=== PATIENT | female | born 1965 | race Caucasian/White ===

== ENCOUNTER 2023-09-18 23:03 | Emergency (ER) | payer OTHER, SELFPAY ==
[2023-09-18 23:18] VITALS: BP 169/99; PULSE 78; TEMP 36.4; O2SAT 100; BMI 23.2
--- NOTE | 2023-09-18 23:20 | ED_ITS ---
HPI HPI - Back Pain/Injury General Chief Complaint: Back Pain/Injury Stated Complaint: BACK PAIN Time Seen by Provider: 09/18/23 23:06 Source: patient Mode of arrival: walk-in Limitations: no limitations History of Present Illness HPI Narrative: 58-year-old female presents to the emergency department for pain in the right lower back and hip which goes into her leg. She has a history of sciatica and it started this time yesterday. No injury. No weakness or numbness or urinary symptoms. The pain is moderate and worse when she moves. She took Celebrex at home but it did not seem to help. Related Data Previous Rx's ?Medication ?Instructions ?Recorded hydrocodone 5 mg-acetaminophen 325 1 tab PO Q6H PRN pain 5 days #20 09/18/23 mg tablet tabs prednisone 10 mg tablet See Rx Instructions .Route 09/18/23 .COMPLEX #30 tabs Allergies Allergy/AdvReac Type Severity Reaction Status Date / Time Penicillins Allergy Rash Verified 09/18/23 23:14 clindamycin AdvReac Nausea Verified 09/18/23 23:14 ibuprofen AdvReac Joint Pain Verified 09/18/23 23:14 Opioid HPI Opioid Management Most Recent Opioid Data: No Data to Display Review of Systems ROS Narrative A ten point review of systems is negative except as noted above. Exam Narrative Exam Narrative: Nurses note and vital signs reviewed and patient is not hypoxic. General: The patient appears uncomfortable, sitting on the examination cart Skin: Warm, dry, no pallor noted. There is no rash noted. Head: Normocephalic, atraumatic Eye: Normal conjunctiva, no drainage Ears, Nose, Mouth, and Throat: oral mucosa is moist. Nares patent. Cardiovascular: Regular Rate and Rhythm Respiratory: Patient is in no distress, no accessory muscle use, lungs are clear to auscultation, no wheezing, rales or rhonchi Back: No bruise rash or focal area of tenderness GI: Soft and nontender Musculoskeletal: Right leg is not swollen. No calf tenderness or swelling. Neurological: Awake and alert. Motor strength intact in her lower extremities Psychiatric: Cooperative Constitutional Vital Signs, click to edit/add: Last Vital Signs Temp 97.6 F 09/18/23 23:18 Pulse 78 09/18/23 23:18 Resp 18 09/18/23 23:18 BP 169/99 H 09/18/23 23:18 Pulse Ox 100 09/18/23 23:18 O2 Del Method Room Air 09/18/23 23:18 Course Vital Signs Vital signs: Vital Signs Temperature 97.6 F 09/18/23 23:18 Pulse Rate 78 09/18/23 23:18 Respiratory Rate 18 09/18/23 23:18 Blood Pressure 169/99 H 09/18/23 23:18 Pulse Oximetry 100 09/18/23 23:18 Oxygen Delivery Method Room Air 09/18/23 23:18 Temperature 97.6 F 09/18/23 23:18 Pulse Rate 78 09/18/23 23:18 Respiratory Rate 18 09/18/23 23:18 Blood Pressure 169/99 H 09/18/23 23:18 Pulse Oximetry 100 09/18/23 23:18 Oxygen Delivery Method Room Air 09/18/23 23:18 MDM - Back Pain/Injury MDM Narrative Medical decision making narrative: My clinical impression is that she has sciatica. She was given IM Solu-Medrol and morphine here and prescribed [place] and prednisone. Treatment diagnosis and follow-up were discussed with the patient. Differential Diagnosis Differential diagnosis: Likely lumbar radiculopathy, sciatica and strain of lumbar region Discharge Plan Discharge Stand Alone Forms: Portal Instructions Chief Complaint: Back Pain/Injury Clinical Impression: Sciatica Patient Disposition: Home, Self-Care Time of Disposition Decision: 23:18 Condition: Good Mode of Transportation: Private Vehicle Prescriptions / Home Meds: New hydrocodone-acetaminophen 5-325 mg tablet 1 tab PO Q6H PRN (Reason: pain) 5 Days Qty: 20 0RF prednisone 10 mg tablet See Rx Instructions .ROUTE .COMPLEX Qty: 30 0RF Rx Instructions: 4 by mouth daily for three days then 3 by mouth daily for three days then 2 by mouth daily for three days then 1 by mouth daily for three days Print Language: Sinhala Instructions: Sciatica (ED) Referrals: MARICHUY CARR [Primary Care Provider] - 1 week
[2023-09-18] MEDS: METHYLPREDNISOLONE SOD SUCC PF 125 MG/2 ML VIAL IM (23:35)
[2023-09-18] MEDS: MORPHINE SULFATE 4 MG/ML VIAL 10 MG IM (23:35)
== END 2023-09-19 00:24 | disposition home or self-care (01) ==
PROVIDERS: Emergency Provider Emergency Medicine; PCP Student in an Organized Health Care Education/Training Program
DX: M54.41 Lumbago with sciatica, right side (principal)
CPT/HCPCS: 96372; 99284; J2270; J2919

== ENCOUNTER 2023-11-20 22:33 | Emergency (ER) | payer OTHER, SELFPAY ==
[2023-11-20 22:39] VITALS: BP 144/100; PULSE 82; TEMP 36.5; O2SAT 97; BMI 23.0
--- OUTSIDE RECORDS SUMMARY | 2023-11-20 22:39 | XMS_ITS | CCD ---
Author Organization [facility] Care Team Providers Care [employer] Supervisor Name Role Phone PHYSICIAN, DEFAULT Admitting Unavailable PHYSICIAN, DEFAULT Attending Unavailable SELF, REFERRED Primary Care Unavailable ELTAHAWY, EHAB A Admitting Unavailable ELTAHAWY, GILBERTOAB A Attending Unavailable JV BOYD Primary Care Unavailable JV BOYD Referring Unavailable [place] Procedure Practitioner Unavailab le BIA, MARITA Stewart Surgeon Unavailable PAY ., DR ANGELES Admitting Unavailable PAY ., DR ANGELES Attending Unavailable RIN CARDENAS Consulting Unavailable CARR, MARICHUY Primary Care Unavailable CARR, MARICHUY Referring Unavailable CARR, MARICHUY Primary Care Unavailable ELTAHAWY, DR KENYON Admitting Unavailable ELTAHAWY, DR KENYON Attending Unavailable CARR, MARICHUY Primary Care Unavailable ELTAHAWY, DR KENYON Attending Unavailable ELTAHAWY, DR KENYON Admitting Unavailable CARR, MARICHUY Primary Care Unavailable CASS, DR IRIS Huynh Admitting Unavaildeb ODELL, DR IRIS Huynh Attending Unavailabl e CASS, DR IRIS Huynh Consulting Unavailabl e CARR, MARICHUY Primary Care Unavailable JOVANY, OSMANY Admitting Unavailable JOVANY, OSMANY Attending Unavailable JOVANY, OSMANY Consulting Unavailable JOVANY, OSMANY Admitting Unavailable JOVANY, OSMANY Attending Unavailable JOVANY, OSMANY Consulting Unavailable CARR, MARICHUY Primary Care Unavailable JENNIFER AARON Consulting Unavailable MARV DEY Consulting Unavailable Corine Carr MD Primary Care Provider CORINE CARR Primary Care Unavailable LISSA WALKER Attending UnavailGEOVANY Blackman Attending Unavailable CORINE CARR Referring Unavailable CORINE CARR Primary Care Unavailable CORINE CARR Attending Unavailable CORINE CARR Referring Unavailable CORINE CARR Primary Care Unavailable Allergies Allergy Classification Reported Allergen(s) Allergy Type Date of Onset Reaction(s) Facility Lincosamides (antibiotic) (1 source) Clindamycin; Translations: [CLINDAMYCIN] Drug Allergy 8 [facility] NSAIDs (2 sources) Ibuprofen; Translations: [IBUPROFEN] Drug Allergy 7 [facility] Penicillins (antibiotic) (1 source) Penicillins; Translations: [PENICILLINS] Drug Allergy 7 [facility] (4 sources) Clindamycin; Translations: [CLINDAMYCIN] Drug Allergy 7 [facility] Repository (3 sources) Ibuprofen; Translations: [IBUPROFEN] Drug Allergy 9 [facility] (2 sources) Naproxen; Translations: [NAPROXEN] Drug Allergy 9 [facility] (4 sources) Penicillins; Translations: [PENICILLINS] Drug allergy (disorder) 9 [facility] (1 source) Ibuprofen Drug Allergy 3 [facility] Repository (3 sources) Clindamycin Drug Allergy 8 [facility] (3 sources) Ibuprofen Drug Allergy 7 [facility] (3 sources) Naproxen Drug Allergy 2 [facility] (3 sources) Penicillins Propensity to adverse reactions to drug 7 [facility] Medications Current Medications Medication Drug Class(es) Dates Sig (Normalized) Sig (Original) acetaminophen 500 mg oral tablet (3 sources) Start: 11-06-2022 take 1 tablet by mouth every six hours as needed for pain acetaminophen (TYLENOL EXTRA STRENGTH) 500 mg tablet Take 1 tablet (500 mg total) by mouth every 6 (six) hours as needed for pain. 30 tablet 0 11/06/2022 Active albuterol 0.83 mg/ml inhalation solution (3 sources) beta2-Adrenergic Agonist Start: 11-06-2022 albuterol (PROVENTIL,VENTOLI N) nebulizer solution 2.5 mg aspirin 81 mg delayed release oral tablet (3 sources) Platelet Aggregation Inhibitor, Nonsteroidal Anti-inflammatory Drug Start: 09-07-2022 take 1 tablet by mouth in the morning aspirin 81 mg Indications: ASCVD (arteriosclerotic cardiovascular disease) Take 1 tablet (81 mg total) by mouth in the morning. 90 tablet 3 09/07/2022 Active atorvastatin 80 mg oral tablet (4 sources) HMG-CoA Reductase Inhibitor Start: 09-07-2022 End: 03-15-2023 take 1 tablet by mouth in the morning atorvastatin (LIPITOR) 80 mg tablet Indications: Primary hypertension , ASCVD (arteriosclerotic cardiovascular disease) take 1 tablet by mouth IN THE MORNING 60 tablet 2 03/15/2023 Active 120 actuat budesonide 0.16 mg/actuat / formoterol fumarate 0.0048 mg/actuat / glycopyrrolate 0.009 mg/actuat metered dose inhaler (3 sources) Corticosteroid, beta2-Adrenergic Agonist Start: 12-24-2022 take 2 puff(s) by inhalation in the morning budesonide-glycopy r-formoterol (BREZTRI AEROSPHERE) 160-9-4.8 mcg/actuation HFA aerosol inhaler Indications: Chronic bronchitis, unspecified chronic bronchitis type (CMS-HCC) 2 puffs, in the morning and in the evening. 10.7 g 5 12/24/2022 Active calcium carbonate 1250 mg / cholecalciferol 200 unt oral tablet (3 sources) Vitamin D Start: 12-24-2022 take 2 tablets by mouth once in the morning calcium carbonate-vitamin D3 (OSCAL 500 + D) 500 mg(1,250mg) -200 units per tablet Indications: Vitamin D deficiency Take 2 tablets by mouth in the morning and 2 tablets in the evening. Take with meals. 180 tablet 0 12/24/2022 Active carvedilol 6.25 mg oral tablet (3 sources) alpha-Adrenergic Stephen, beta-Adrenergic Stephen Start: 01-17-2023 take 1 tablet by mouth in the morning carvediloL (COREG) 6.25 mg tablet Indications: Primary hypertension take 1 tablet by mouth IN THE MORNING and take 1 tablet by mouth BEFORE BEDTIME 60 tablet 2 01/17/2023 Active celecoxib 100 mg oral capsule (3 sources) Nonsteroidal Anti-inflammatory Drug Start: 11-23-2022 take 1 capsule by mouth in the morning, then take 1 capsule by mouth at bedtime celecoxib (CeleBREX) 100 mg capsule Indications: Subcapital fracture of hip, right, closed, initial encounter ([facility]) Take 1 capsule (100 mg total) by mouth in the morning and 1 capsule (100 mg total) before bedtime. 60 capsule 0 11/23/2022 Active DULoxetine 30 mg delayed release oral capsule (4 sources) Serotonin and Norepinephrine Reuptake Inhibitor Start: 12-24-2022 End: 03-15-2023 take 1 capsule by mouth once daily in the morning DULoxetine (CYMBALTA) 30 mg capsule Indications: Subcapital fracture of hip, right, closed, initial encounter ([facility]) take 1 capsule by mouth every morning 90 capsule 0 03/15/2023 Active magnesium oxide 400 mg oral tablet (3 sources) take 1 tablet by mouth in the morning magnesium oxide (MAGOX) 400 mg tablet Take 1 tablet (400 mg total) by mouth in the morning. 0 Active potassium chloride 1.33 meq/ml oral solution (3 sources) potassium chlori de (KAYCIEL) 20 mEq/15 mL solution Take 7.5 mL (10 mEq total) by mouth in the morning. 0 Active tiotropium 0.018 mg inhalation powder (3 sources) Anticholinergic Start: 03-03-2023 take 1 capsule by inhalation once daily SPIRIVA WITH HANDIHALER 18 mcg per inhalation capsule Indications: Chronic obstructive pulmonary disease, unspecified COPD type ([facility]) inhale THE CONTENTS OF ONE CAPSULE IN THE HANDIHALER once daily 30 capsule 2 03/03/2023 Active traMADol hydrochloride 50 mg oral tablet (5 sources) Opioid Agonist Start: 12-24-2022 End: 05-27-2023 take 1 tablet by mouth every six hours as needed for pain traMADoL (ULTRAM) 50 mg tablet Indications: Subcapital fracture of hip, right, closed, initial encounter ([facility]) Take 1 tablet (50 mg total) by mouth every 6 (six) hours as needed for pain. 30 tablet 0 05/27/2023 Active varenicline (3 sources) Partial Cholinergic Nicotinic Agonist Start: 11-23-2022 varenicline (CHANTIX STARTING MONTH BOX) 0.5 mg (11)- 1 mg (42) tablet Indications: Tobacco use Take 0.5 mg one daily on days 1-3 and 0.5 mg twice daily on days 4-7. Then 1 mg twice daily for a total of 12 weeks. 53 tablet 0 11/23/2022 Active Problems Active Problems Problem Classification Problem Date Documented Date Episodic/Chronic Administrative/social admission (1 source) Encounter for issue of repeat prescription; Translations: [ENC FOR ISSUE REPEAT PRESCRIPTION] Onset: 3 Episodic Aortic; peripheral; and visceral artery aneurysms (5 sources) Aneurysm of iliac artery; Translations: [Aneurysm of iliac artery] Onset: 9 11-07-2022 Chronic Cardiac dysrhythmias (3 sources) Multiple premature ventricular complexes; Translations: [Ventricular premature depolarization] Onset: 3 11-07-2022 Chronic Chronic obstructive pulmonary disease and bronchiectasis (4 sources) Chronic obstructive lung disease; Translations: [Chronic obstructive pulmonary disease, unspecified] Onset: 3 11-06-2022 Chronic Chronic obstructive pulmonary disease and bronchiectasis (1 source) Bronchitis, not specified as acute or chronic; Translations: [Bronchitis, not specified as acute or chronic] Onset: 4 Episodic Conditions associated with dizziness or vertigo (1 source) Dizziness and giddiness; Translations: [DIZZINESS AND GIDDINESS] Onset: 9 Episodic Congestive heart failure; nonhypertensive (3 sources) Chronic systolic heart failure; Translations: [Chronic systolic (congestive) heart failure] Onset: 3 11-07-2022 Chronic Coronary atherosclerosis and other heart disease (2 sources) Atherosclerotic heart disease of [place] coronary artery without angina pectoris; Translations: [Arteriosclerotic vascular disease] Onset: 3 03-13-2023 Chronic Disorders of lipid metabolism (3 sources) Hyperlipidemia; Translations: [Other hyperlipidemia] Onset: 3 11-07-2022 Chronic Disorders of teeth and jaw (3 sources) Jaw pain; Translations: [Periapical abscess without sinus] Onset: 4 Episodic Essential hypertension (5 sources) Essential (primary) hypertension; Translations: [Essential hypertension] Onset: 7 03-13-2023 Chronic Genitourinary symptoms and ill-defined conditions (1 source) Personal history of urinary (tract) infections; Translations: [PERS HX URINARY TRACT INFECTIONS] Onset: 3 Episodic Other aftercare (2 sources) long term care social worker (current) use of aspirin; Translations: [SENIOR LIVING (CURRENT) USE OF ASPIRIN] Onset: 9 Episodic Other connective tissue disease (1 source) Pain in leg, unspecified; Translations: [PAIN IN LEG, UNSPECIFIED] Onset: 9 Episodic Other connective tissue disease (1 source) Other specified soft tissue disorders; Translations: [OTHER SPECIFIED SOFT TISSUE DISORDERS] Onset: 9 Episodic Other lower respiratory disease (1 source) Shortness of breath; Translations: [SHORTNESS OF BREATH] Onset: 9 Episodic Other lower respiratory disease (1 source) Cough Onset: 4 Episodic Other screening for suspected conditions (not mental disorders or infectious disease) (4 sources) Abnormal result of other cardiovascular function study; Translations: [ABNORMAL RESULT OF OTHER CARDIOVASCULAR FUNCTION STUDY] Onset: 9 Episodic Other upper respiratory disease (1 source) Other seasonal allergic rhinitis; Translations: [OTHER SEASONAL ALLERGIC RHINITIS] Onset: 3 Chronic Other upper respiratory infections (1 source) Acute upper respiratory infection, unspecified; Translations: [ACUTE UP RESPIRATORY INFECTION UNS] Onset: 3 Episodic Substance-related disorders (2 sources) Nicotine dependence, unspecified, uncomplicated; Translations: [Nicotine dependence, cigarettes, uncomplicated] Onset: 9 Chronic Unclassified (2 sources) ABNORMAL STRESS CATH Onset: 9 Unclassified (2 sources) COUGH, UNSPECIFIED; Translations: [COUGH, UNSPECIFIED] Onset: 3 Unclassified (3 sources) LOW BACK PAIN, UNSPECIFIED; Translations: [LOW BACK PAIN, UNSPECIFIED] Onset: 2 Unclassified (1 source) Temporomandibular Joint Pain Onset: 4 Unclassified (1 source) PAIN & SWELLING LEFT SIDE OF FACE Onset: 4 Past or Other Problems Problem Classification Problem Date Documented Date Episodic/Chronic Cardiac dysrhythmias (4 sources) Palpitations; Translations: [Palpitations] Onset: 02-10-2017 08-11-2021 Episodic E Codes: Fall (3 sources) Fall in home; Translations: [Unspecified fall, initial encounter] Onset: 11-06-2022 11-06-2022 Episodic E Codes: Natural/environment (1 source) Exposure to other specified factors, initial encounter; Translations: [EXPOSURE OTHER SPEC FACTORS INITIAL] Onset: 10-30-2021 Episodic Fracture of neck of femur (hip) (7 sources) Closed subcapital fracture of right femur; Translations: [Unspecified intracapsular fracture of right femur, initial encounter for closed fracture] Onset: 11-06-2022 03-13-2023 Episodic Mood disorders (3 sources) Mood disorders Onset: 09-07-2022 09-07-2022 Nonspecific chest pain (8 sources) Chest pain, unspecified; Translations: [Other chest pain] Onset: 02-10-2017 Episodic Other aftercare (1 source) Other long term care pharmacist (current) drug therapy; Translations: [OTH SENIOR LIVING CURRENT DRUG THERAPY] Onset: 02-01-2022 Episodic Other non-traumatic joint disorders (1 source) Pain in joints of left hand; Translations: [PAIN IN JOINTS OF LEFT HAND] Onset: 02-01-2022 Episodic Other non-traumatic joint disorders (1 source) Pain in joints of right hand; Translations: [PAIN IN JOINTS OF RIGHT HAND] Onset: 02-01-2022 Episodic Other non-traumatic joint disorders (1 source) Pain in left ankle and joints of left foot; Translations: [PAIN IN LEFT ANKLE] Onset: 02-01-2022 Episodic Other non-traumatic joint disorders (1 source) Pain in right ankle and joints of right foot; Translations: [PAIN IN RIGHT ANKLE] Onset: 02-01-2022 Episodic Other skin disorders (3 sources) Localized swelling, mass and lump, upper limb, bilateral; Translations: [LOC SWELL MASS LUMP UP LIMB JEF] Onset: 01-28-2022 Episodic Residual codes; unclassified (3 sources) H/O: atrial fibrillation; Translations: [Other specified postprocedural states] Onset: 11-07-2022 11-07-2022 Episodic Sprains and strains (1 source) Sprain of ligaments of lumbar spine, initial encounter; Translations: [SPRAIN LIGAMENTS LUMBAR SPN INITIAL] Onset: 10-30-2021 Episodic Unclassified (1 source) COUGH, UNSPECIFIED; Translations: [COUGH, UNSPECIFIED] Onset: 07-12-2022 Unclassified (1 source) LOW BACK PAIN, UNSPECIFIED; Translations: [LOW BACK PAIN, UNSPECIFIED] Onset: 10-29-2021 Unclassified (3 sources) Onset: 07-01-2021 07-01-2021 Results Test Name Value Interpretation Reference Range Facility AMYLASEon 06-03-2022 Amylase [Catalytic activity/Vol] 82 U/L Normal 25-115 [facility] Comment on above: Performed By: #### L IVMIKIE, CMADM, LIPA, LAUREL, BMP #### [facility] [address] [address] [address] Maxi Esparza CARDIAC DONNA 3-6on 3 CK [Catalytic activity/Vol] 69 U/L Normal 26-192 [facility] Comment on above: Performed By: #### C MREP #### [facility] [address] [address] [address] Maxi Esparza CK.MB [Mass/Vol] 1.29 ng/mL Normal <=3.60 [facility] Comment on above: Performed By: #### C MREP #### [facility] [address] [address] [address] Maxi Esparza HSTROP 10.5 pg/mL Normal 4.0-51.3 [facility] Comment on above: Result Comment: CUT- OFF POINTS HAVE BEEN ESTABLISHED BASED ON THE FOURTH UNIVERSAL DEFINITIONS OF MYOCARDIAL INFARCTION. THE UPPER REFERENCE LIMIT (URL) OF TROPONIN, DEFINED THE 99TH PERCENTILE OF cTnI DISTRIBUTION IN A REFERENCE POPULATION, HAS BEEN CONFIRMED THE DECISION THRESHOLD FOR RI DIAGNOSIS. Performed By: #### C MREP #### [facility] [address] [address] [address] Maxi Esparza CARDIAC DONNA ADMITon 023 CK [Catalytic activity/Vol] 75 U/L Normal 26-192 [facility] Comment on above: Performed By: #### L BERNICEER, CMADM, LIPA, LAUREL, BMP ####[facility] [id number] [place], [place] [id number]. Maxi Esparza CK.MB [Mass/Vol] 1.55 ng/mL Normal <=3.60 [facility] Comment on above: Performed By: #### L IVER, CMADM, LIPA, LAUREL, BMP ####[facility] [id number] [address]Dr. Maxi Esparza HSTROP 10.2 pg/mL Normal 4.0-51.3 [facility] Comment on above: Result Comment: CUT- OFF POINTS HAVE BEEN ESTABLISHED BASED ON THE FOURTH UNIVERSAL DEFINITIONS OF MYOCARDIAL INFARCTION. THE UPPER REFERENCE LIMIT (URL) OF TROPONIN, DEFINED THE 99TH PERCENTILE OF cTnI DISTRIBUTION IN A REFERENCE POPULATION, HAS BEEN CONFIRMED THE DECISION THRESHOLD FOR RI DIAGNOSIS. Performed By: #### L IVER, CMADM, LIPA, LAUREL, BMP ####[facility] [address] [address]DrZander Esparza BENTLEY 34 ng/mL Normal 9-82 [facility] Comment on above: Performed By: #### L IVER, CMADM, LIPA, LAUREL, BMP ####[facility] [address] [address]DrZander Esparza CBC AUTO DIFFon 06-03-2022 BASO # 0.1 103/ul Normal 0.0-0.1 [facility] Comment on above: Performed By: #### C BC #### [facility] [address] [place] [address] Dr. Maxi Esparza Basophils/100 WBC (Bld) 0.8 % Normal 0.2-2.0 [facility] Comment on above: Performed By: #### C BC #### [facility] [address] [place] [address] Dr. Maxi Esparza EO # 0.1 103/ul Normal 0.0-0.7 [facility] Comment on above: Performed By: #### C BC #### [facility] [address] [address] [address] Maxi Esparza Eosinophils/100 WBC (Bld) 0.9 % Normal 0.9-7.0 [facility] Comment on above: Performed By: #### C BC #### [facility] [address] [place] [address] Dr. Maxi Esparza Erythrocyte distribution width (RBC) [Ratio] 12.8 % Normal 11.0-15.0 [facility] Comment on above: Performed By: #### C BC #### [facility] [address] [place] [address] Dr. Maxi Esparza Hematocrit (Bld) [Volume fraction] 44.2 % Normal 36.0-48.0 [facility] Comment on above: Performed By: #### C BC #### [facility] [address] [place] [address] Dr. Maxi Esparza Hemoglobin (Bld) [Mass/Vol] 15.3 g/dL Normal 12.0-16.0 [facility] Comment on above: Performed By: #### C BC #### [facility] [address] [place] [address] Dr. Maxi Esparza IG # 0.02 10e3/ul Normal 0.00-0.03 [facility] Comment on above: Performed By: #### C BC #### [facility] [address] [place] [address] Dr. Maxi Esparza IG % 0.2 % Normal 0.0-0.5 [facility] Comment on above: Performed By: #### C BC #### [facility] [address] [place] [address] Dr. Maxi Esparza LYMPH # 3.3 103/ul Normal 1.2-3.8 [facility] Comment on above: Performed By: #### C BC #### [facility] [address] [place] [address] Dr. Maxi Esparza Lymphocytes/100 WBC (Bld) 31.8 % Normal 20.5-60.0 [facility] Comment on above: Performed By: #### C BC #### [facility] [address] [place] [address] Dr. Maxi Esparza MANUAL DIFF REQ NO Normal [facility] Comment on above: Performed By: #### C BC #### [facility] [address] [place] [address] Dr. Maxi Esparza MCH (RBC) [Entitic mass] 31.6 pg Normal 26.7-34.0 [facility] Comment on above: Performed By: #### C BC #### [facility] [address] [address] [address] Maxi Esparza MCHC (RBC) [Mass/Vol] 34.6 g/dL Normal 29.9-35.2 [facility] Comment on above: Performed By: #### C BC #### [facility] [address] [address] [address] Maxi Esparza MCV (RBC) [Entitic vol] 91.3 fL Normal 81.0-99.0 [facility] Comment on above: Performed By: #### C BC #### [facility] [address] [place] [address] Dr. Maxi Esparza MONO # 0.6 103/ul Normal 0.3-0.8 [facility] Comment on above: Performed By: #### C BC #### [facility] [address] [place] [address] Dr. Maxi Esparza Monocytes/100 WBC (Bld) 5.7 % Normal 1.7-12.0 [facility] Comment on above: Performed By: #### C BC #### [facility] [address] [place] [address] Dr. Maxi Esparza NEUT # 6.3 103/ul Normal 1.4-6.5 [facility] Comment on above: Performed By: #### C BC #### [facility] [address] [place] [address] Dr. Maxi Esparza Neutrophils/100 WBC (Bld) 60.6 % Normal 43.0-75.0 [facility] Comment on above: Performed By: #### C BC #### [facility] [address] [address] [address] Maxi Esparza Platelet mean volume (Bld) [Entitic vol] 10.2 fL Normal 9.5-13.5 [facility] Comment on above: Performed By: #### C BC #### [facility] [address] [address] [address] Maxi Esparza PLT 332 103/ul Normal 150-450 [facility] Comment on above: Performed By: #### C BC #### [facility] [address] [place], [place] [address] Dr. Maxi Esparza RBC 4.84 106/ul Normal 4.20-5.40 [facility] Comment on above: Performed By: #### C BC #### [facility] [address] [place], [place] [address] Dr. Maxi Esparza WBC 10.4 103/ul Normal 4.0-11.0 [facility] Comment on above: Performed By: #### C BC #### [facility] [address] [place], [place] [address] ABD/PELV W CONon 06-04-19 CT ABD/PELV W CON EXAM: CT ABD/PELV W CON 06/02/2022 10:49 PM EDT [place]001 CLINICAL STATEMENT: Pain COMPARISON: 10/08/2019 TECHNIQUE: Helically acquired images were obtained of the abdomen and pelvis following 100 cc of Omnipaque 300 IV contrast. No oral contrast was administered. AEC is utilized. 2-D reconstructed images are provided. FINDINGS: Hepatomegaly. Gallbladder is unremarkable. The upper abdominal solid organs are unremarkable. There is no bowel obstruction or free air. There is no ascites. There is no evidence of aortic aneurysm or dissection. The celiac artery, superior mesenteric artery, and superior mesenteric vein are grossly patent. There is a 2.2 cm left common iliac artery aneurysm. 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 There is no retroperitoneal adenopathy. There is no appendicitis or diverticulitis. Prominent left gonadal vein extending into the uterus and adnexa. Correlate for pelvic congestion. There are no pelvic masses or loculated fluid collections. The lung bases are clear. Multilevel degenerative changes lumbosacral spine with scoliosis. The bladder is decompressed. There are no destructive bone lesions identified. IMPRESSION: Hepatomegaly. 2.2 cm left common iliac artery aneurysm. 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 Prominent left gonadal vein extending into the uterus and adnexa. Correlate for pelvic congestion. Electronically authenticated by: JENNIFER AARON Date: 2022-06-03 00:27 Normal [facility] D-DIMERon 06-03-2022 D-DIMER 0.28 mg/L FEU Normal <=0.59 [facility] Comment on above: Performed By: #### D DIM #### [facility] [address] [address] [address] Maxi Esparza D-DIMER COMMENTS SEE BELOW Normal [facility] Comment on above: Result Comment: Incr eases in D-Dimer concentration observed with thromboembolic events can be variable due to localization, size, and age of the thrombus. Therefore, a thromboembolic event cannot be diagnosed with certainty on the basis of the reference range. D-Dimers may also be elevated for a variety of disorders including: advanced age, , coronary disease, cancer, liver disease, infection, inflammation, hematoma, DIC, trauma, post-surgery, diabetes, thrombolytic or anticoagulant therapy, stress, and generalized hospitalization. Performed By: #### D DIM #### [facility] [address] [address] [address] Maxi Esparza LIPASEon 06-03-2022 Lipase [Catalytic activity/Vol] 131.0 U/L Normal 73.0-393.0 [facility] Comment on above: Performed By: #### L IVER, CMADM, LIPA, LAUREL, BMP ####[facility] [address] [address]Dr. Maxi Esparza LIVER PROFILEon 06-03-2022 Albumin [Mass/Vol] 3.9 g/dL Normal 3.4-5.0 [facility] Comment on above: Performed By: #### L IVER, CMADM, LIPA, LAUREL, BMP #### [facility] [address] [address] [address] Maxi Esparza Albumin/Globulin [Mass ratio] 1.1 {ratio} Normal [facility] Comment on above: Performed By: #### L IVER, CMADM, LIPA, LAUREL, BMP #### [facility] [address] [address] [address] Maxi Esparza ALP [Catalytic activity/Vol] 150 U/L Critically high 46-116 [facility] Comment on above: Performed By: #### L IVER, CMADM, LIPA, LAUREL, BMP #### [facility] [address] [place] [address] Dr. Maxi Esparza ALT [Catalytic activity/Vol] 23 U/L Normal 14-59 [facility] Comment on above: Performed By: #### L IVER, CMADM, LIPA, LAUREL, BMP #### [facility] [address] [place] [address] Dr. Maxi Esparza AST [Catalytic activity/Vol] 19 U/L Normal 15-37 [facility] Comment on above: Performed By: #### L IVER, CMADM, LIPA, LAUREL, BMP #### [facility] [address] [place] [address] Dr. Maxi Esparza BILI, CONJUGATED 0.1 mg/dL Normal 0.0-0.2 [facility] Comment on above: Performed By: #### L IVER, CMADM, LIPA, LAUREL, BMP #### [facility] [address] [place] [address] Dr. Maxi Esparza Bilirubin [Mass/Vol] 0.5 mg/dL Normal 0.2-1.0 [facility] Comment on above: Performed By: #### L IVER, CMADM, LIPA, LAUREL, BMP #### [facility] [address] [place] [address] Dr. Maxi Esparza Globulin (S) [Mass/Vol] 3.6 g/dL Normal [facility] Comment on above: Performed By: #### L IVER, CMADM, LIPA, LAUREL, BMP #### [facility] [address] [place] [address] Dr. Maxi Esparza Protein [Mass/Vol] 7.5 g/dL Normal 6.4-8.2 [facility] Comment on above: Performed By: #### L IVER, CMADM, LIPA, LAUREL, BMP #### [facility] [address] [place] [address] Dr. Maxi Esparza PROF CHEM 8 (BAS METB)on Anion gap [Moles/Vol] 12.7 mmol/L Normal [facility] Comment on above: Performed By: #### L IVER, CMADM, LIPA, LAUREL, BMP #### [facility] [address] [address] [address] Maxi Esparza Calcium [Mass/Vol] 8.9 mg/dL Normal 8.5-10.1 [facility] Comment on above: Performed By: #### L IVER, CMADM, LIPA, LAUREL, BMP #### [facility] [address] [place] [address] Dr. Maxi Esparza Chloride [Moles/Vol] 97 mmol/L Critically low 98-107 [facility] Comment on above: Performed By: #### L IVER, CMADM, LIPA, LAUREL, BMP #### [facility] [address] [place] [address] Dr. Maxi Esparza CO2 [Moles/Vol] 27.8 mmol/L Normal 21.0-32.0 [facility] Comment on above: Performed By: #### L IVER, CMADM, LIPA, LAUREL, BMP #### [facility] [address] [place] [address] Dr. Maxi Esparza Creatinine [Mass/Vol] 1.02 mg/dL Normal 0.55-1.02 [facility] Comment on above: Performed By: #### L IVER, CMADM, LIPA, LAUREL, BMP #### [facility] [address] [place] [address] Dr. Maxi Esparza EGFR-AF EGYPTIAN >60 Normal >=60 [facility] Comment on above: Performed By: #### L IVER, CMADM, LIPA, LAUREL, BMP #### [facility] [address] [place] [address] Dr. Maxi Esparza EGFR-NON AF EGYPTIAN 56 mL/min/1.73m2 Critically low >=60 [facility] Comment on above: Performed By: #### L IVER, CMADM, LIPA, LAUREL, BMP #### [facility] [address] [place] [address] Dr. Maxi Esparza Glucose [Mass/Vol] 127 mg/dL Critically high 74-106 [facility] Comment on above: Performed By: #### L IVER, CMADM, LIPA, LAUREL, BMP #### [facility] [address] [address] [address] Maxi Esparza Potassium [Moles/Vol] 3.5 mmol/L Normal 3.5-5.1 [facility] Comment on above: Performed By: #### L IVER, CMADM, LIPA, LAUREL, BMP #### [facility] [address] [address] [address] Maxi Esparza Sodium [Moles/Vol] 134 mmol/L Critically low 136-145 Th e [facility] Comment on above: Performed By: #### L IVER, CMADM, LIPA, LAUREL, BMP #### [facility] [address] [address] [address] Maxi Esparza Urea nitrogen [Mass/Vol] 14.0 mg/dL Normal 7.0-18.0 [facility] Comment on above: Performed By: #### L IVER, CMADM, LIPA, LAUREL, BMP #### [facility] [address] [address] [address] Maxi Esparza Urea nitrogen/Creatinine [Mass ratio] 13.7 mg/mg Normal [facility] Comment on above: Performed By: #### L IVER, CMADM, LIPA, LAUERL, BMP #### [facility] [address] [address] [address] Maxi Esparza XR CHEST 2 Von 06-03-2022 XR CHEST 2 V EXAMINATION: XR CHES T 2 V, 06/02/2022 10:21 PM EDT HISTORY: Pain COMPARISON: 05/14/2021 TECHNIQUE: Chest x-ray: Two views. FINDINGS: No focal consolidations or pleural effusions. The lungs are hyperinflated suggesting COPD. Cardiomediastinal silhouette is unremarkable. Bony demineralization. Dextroscoliosis of the thoracic spine. IMPRESSION: No acute disease. COPD. Electronically authenticated by: MARV DEY Date: 2022-06-02 22:58 Normal [facility] CBC AUTO DIFFon 01-29-2022 BASO # 0.1 103/ul Normal 0.0-0.1 [facility] Comment on above: Performed By: #### C BC #### [facility] [address] [place] [address] Dr. Maxi Esparza Basophils/100 WBC (Bld) 0.7 % Normal 0.2-2.0 [facility] Comment on above: Performed By: #### C BC #### [facility] [address] [place] [address] Dr. Maxi Esparza EO # 0.1 103/ul Normal 0.0-0.7 [facility] Comment on above: Performed By: #### C BC #### [facility] [address] [place] [address] Dr. Maxi Esparza Eosinophils/100 WBC (Bld) 0.5 % Critically low 0.9-7.0 [facility] Comment on above: Performed By: #### C BC #### [facility] [address] [place] [address] Dr. Maxi Esparza Erythrocyte distribution width (RBC) [Ratio] 13.2 % Normal 11.0-15.0 [facility] Comment on above: Performed By: #### C BC #### [facility] [address] [place] [address] Dr. Maxi Esparza Hematocrit (Bld) [Volume fraction] 39.1 % Normal 36.0-48.0 [facility] Comment on above: Performed By: #### C BC #### [facility] [address] [place] [address] Dr. Maxi Esparza Hemoglobin (Bld) [Mass/Vol] 13.5 g/dL Normal 12.0-16.0 [facility] Comment on above: Performed By: #### C BC #### [facility] [address] [place] [address] Dr. Maxi Esparza IG # 0.01 10e3/ul Normal 0.00-0.03 [facility] Comment on above: Performed By: #### C BC #### [facility] [address] [place] [address] Dr. Maxi Esparza IG % 0.1 % Normal 0.0-0.5 [facility] Comment on above: Performed By: #### C BC #### [facility] [address] [address] [address] Maxi Esparza LYMPH # 3.9 103/ul Critically high 1.2-3.8 [facility] Comment on above: Performed By: #### C BC #### [facility] [address] [address] [address] Maxi Esparza Lymphocytes/100 WBC (Bld) 42.9 % Normal 20.5-60.0 [facility] Comment on above: Performed By: #### C BC #### [facility] [address] [place] [address] Dr. Maxi Esparza MANUAL DIFF REQ NO Normal [facility] Comment on above: Performed By: #### C BC #### [facility] [address] [place] [address] Dr. Maxi Esparza MCH (RBC) [Entitic mass] 31.8 pg Normal 26.7-34.0 [facility] Comment on above: Performed By: #### C BC #### [facility] [address] [place] [address] Dr. Maxi Esparza MCHC (RBC) [Mass/Vol] 34.5 g/dL Normal 29.9-35.2 [facility] Comment on above: Performed By: #### C BC #### [facility] [address] [place] [address] Dr. Maxi Esparza MCV (RBC) [Entitic vol] 92.0 fL Normal 81.0-99.0 [facility] Comment on above: Performed By: #### C BC #### [facility] [address] [place] [address] Dr. Maxi Esparza MONO # 0.6 103/ul Normal 0.3-0.8 [facility] Comment on above: Performed By: #### C BC #### [facility] [address] [place] [address] Dr. Maxi Esparza Monocytes/100 WBC (Bld) 6.7 % Normal 1.7-12.0 [facility] Comment on above: Performed By: #### C BC #### [facility] [address] [address] [address] Maxi Esparza NEUT # 4.5 103/ul Normal 1.4-6.5 [facility] Comment on above: Performed By: #### C BC #### [facility] [address] [address] [address] Maxi Esparza Neutrophils/100 WBC (Bld) 49.1 % Normal 43.0-75.0 [facility] Comment on above: Performed By: #### C BC #### [facility] [address] [address] [address] Maxi Esparza Platelet mean volume (Bld) [Entitic vol] 10.4 fL Normal 9.5-13.5 [facility] Comment on above: Performed By: #### C BC #### [facility] [address] [place] [address] Dr. Maxi Esparza PLT 250 103/ul Normal 150-450 [facility] Comment on above: Performed By: #### C BC #### [facility] [address] [address] [address] Maxi Esparza RBC 4.25 106/ul Normal 4.20-5.40 [facility] Comment on above: Performed By: #### C BC #### [facility] [address] [address] [address] Maxi Esparza WBC 9.2 103/ul Normal 4.0-11.0 [facility] Comment on above: Performed By: #### C BC #### [facility] [address] [place] [address] Dr. Maxi Esparza CRPon 01-29-2022 CRP [Mass/Vol] mg/L Normal <=1.0 [facility] Comment on above: Performed By: #### B MP, CRP ####[facility] [address] [address]Dr. Maxi Esparza PROF CHEM 8 (BAS METB)on Anion gap [Moles/Vol] 7.6 mmol/L Normal [facility] Comment on above: Performed By: #### B MP, CRP ####[facility] [address] [address]Dr. Maxi Esparza Calcium [Mass/Vol] 9.0 mg/dL Normal 8.5-10.1 [facility] Comment on above: Performed By: #### B MP, CRP ####[facility] [address] [address]Dr. Maxi Esparza Chloride [Moles/Vol] 107 mmol/L Normal 98-107 [facility] Comment on above: Performed By: #### B MP, CRP ####[facility] [address] [address]Dr. Maxi Esparza CO2 [Moles/Vol] 29.8 mmol/L Normal 21.0-32.0 [facility] Comment on above: Performed By: #### B MP, CRP ####[facility] [address] [place], [place] [address]Dr. Maxi Esparza Creatinine [Mass/Vol] 0.81 mg/dL Normal 0.55-1.02 [facility] Comment on above: Performed By: #### B MP, CRP ####[facility] [address] [place], [place] [address]Dr. Maxi Esparza EGFR-AF EGYPTIAN >60 Normal >=60 [facility] Comment on above: Performed By: #### B MP, CRP ####[facility] [address] [place], [place] [address]Dr. Maxi Esparza EGFR-NON AF EGYPTIAN >60 Normal >=60 [facility] Comment on above: Performed By: #### B MP, CRP ####[facility] [address] [place], [place] [address]Dr. Maxi Esparza Glucose [Mass/Vol] 94 mg/dL Normal 74-106 [facility] Comment on above: Performed By: #### B MP, CRP ####[facility] [address] [place], [place] [address]Dr. Maxi Esparza Potassium [Moles/Vol] 3.4 mmol/L Critically low 3.5-5.1 [facility] Comment on above: Performed By: #### B MP, CRP ####[facility] [address] [place], [place] [address]Gf. Maxi Esparza Sodium [Moles/Vol] 141 mmol/L Normal 136-145 [facility] Comment on above: Performed By: #### B MP, CRP ####[facility] [address] [place], [place] [address]If. Maxi Esparza Urea nitrogen [Mass/Vol] 7.0 mg/dL Normal 7.0-18.0 [facility] Comment on above: Performed By: #### B MP, CRP ####[facility] [address] [place], [place] [address]Qj. Maxi Esparza Urea nitrogen/Creatinine [Mass ratio] 8.6 mg/mg Normal [facility] Comment on above: Performed By: #### B MP, CRP ####[facility] [address] [place], [place] [address]Fq. Maxi Esparza SED RATE [facility] 2021 SED RATE 9 mm/hr Normal <=30 [facility] Comment on above: Performed By: #### S EDR #### [facility] [address] [place], [place] [address] Dr. Maxi Esparza Cardiovascular Lab Reporton 05-25-2018 Cardiovascular Lab Report [facility] Patient Name: [facility] Mary MR #: [id number] Department of Physician: Jeovanny Siu M.D. Division of Service Date: 05/25/2018 Cardiology Birthdate: 1965 Adult Cardiovascular Room #: [address] [address] Cardiovascular Laboratory Report FINAL IMPRESSIONS: 1. Angiographically nonobstructive coronary arteries. 2. 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 3. 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 RECOMMENDATIONS/PLAN: 1. Will consult Vascular Surgery to discuss management options for the patient's peripheral artery aneurysmal disease. 2. Aggressive cardiovascular risk factor modification. 3. Consider alternate etiologies for the patient's chest pain symptoms namely pulmonary, gastrointestinal, or musculoskeletal. 4. Follow up with Dr. Purcell in the [facility] in the next 1 to 2 months. 5. Follow up with Dr. Boyd as scheduled. PROCEDURES: Bilateral selective coronary angiography, catheter placement in the abdominal aorta, abdominal aortography, limited femoral angiography. METHODS: After risks, benefits, and alternatives were explained, written informed consent was obtained. The patient was prepped and draped in usual sterile fashion over both groins. Using 1% lidocaine solution, local infiltration anesthesia was achieved over the right groin. Using a micropuncture kit and under fluoroscopic guidance access of the right common femoral artery was obtained. A 6-New Zealander 11 cm sheath was inserted without difficulty. Baseline angiography via the side arm of the sheath was performed. A 5-New Zealander Uni flush catheter was advanced in and positioned in the abdominal aorta. Abdominal aortography was performed using 20 mL of contrast at a rate of 10 mL/second. Subsequently coronary angiography was performed using JL4 and JR4 catheters. The Uni flush catheter was reintroduced and angiography of the left iliac system was performed in a contralateral caudal projection. The catheter and wire were removed. The sheath was to be removed with application of manual pressure to achieve optimal hemostasis. Overall, the patient tolerated the procedure well. There were no overt complications. She was to be transferred to the holding area in stable condition. FINDINGS: Hemodynamics: AO 110/71. LEFT VENTRICULOGRAPHY: This was not performed. Ejection fraction is normal by noninvasive imaging. CORONARY ARTERIES: Left main coronary artery. This arises from the left coronary cusp. It bifurcates into the left anterior descending and left circumflex coronary arteries and it is free of significant stenosis. Left anterior descending coronary artery. This is angiographically nonobstructive. Left circumflex coronary artery. This is nonobstructive. Right coronary artery. This is a dominant vessel giving rise to the posterior descending and posterolateral branches. It is nonobstructive. Abdominal aortography. This shows mild ectasia of the infrarenal aorta. The common iliac arteries are patent in the proximal portions. LOWER EXTREMITY ANGIOGRAPHY: Right lower extremity: Common iliac. This is widely patent. Internal iliac. This is widely patent. External iliac. This is patent with evidence of ectasia/aneurysmal disease in the mid to distal portion of the external iliac artery. Common femoral artery. This is widely patent. Left lower extremity: Common iliac. This is patent in the proximal portion, there is 1 x 1.5 cm aneurysmal segment in the distal portion. Internal iliac artery. There is a 5 x 5 mm aneurysm at the ostium. The vessel is otherwise widely patent. External iliac artery. This is patent in the proximal portion into the mid portion. There is subsequently a long aneurysmal segment measuring 6 mm in diameter and 1.5 cm in length. At the distal end of this segment, there is 70%-80% discrete stenosis. Common femoral. This appears to be widely patent. INDICATIONS: Mrs. Iglesias is a 52-year-old woman who presented with chest pain. A stress test suggested evidence of inferoapical ischemia. She was known to have aneurysmal disease by angiography several years ago. Findings and management strategies are outlined above. Electronically Signed by: Marita Purcell M.D. 06/06/2018 01:56 P Marita Purcell M.D. Date Dict: 05/25/2018/10:49 Pat/Marita Purcell M.D. Date Trans: 05/25/2018 11:48 Sarah [id number] cc: Jv Boyd M.D. [address] [facility] [id number] [facility] Encounters Encounter Date Encounter Type Care Provider Facility Start: 08-17-2023 End: 08-17-2023 ambulatory [facility] Start: 08-16-2023 End: 08-17-2023 Emergency department patient visit [facility] Start: 07-27-2023 End: 07-27-2023 ambulatory [facility] Start: 05-27-2023 Refill Mario Ly CMA [facility] Comment on above: Subcapital fracture of hip, right, closed, initial encounter ([facility] Start: 03-22-2023 Refill Corine Carr MD Work Phone: [facility] Comment on above: Subcapital fracture of hip, right, closed, initial encounter ([facility]) Start: 03-13-2023 Refill Corine Carr MD Work Phone: [facility] Comment on above: Primary hypertension ; ASCVD (arteriosclerotic cardiovascular disease); Subcapital fracture of hip, right, closed, initial encounter ([facility]) Start: 07-12-2022 End: 07-12-[address] KARTHIK RENDON . Facility: Start: 06-02-2022 End: 06-03-2022 ambulatory OSMANY JOVANY Facility:[facility] Start: 01-28-2022 End: 01-29-2022 ambulatory MARICHUY CARR Facility:[facility] Start: 01-20-2022 ambulatory MARICHUY CARR Facili ty:[facility] Start: 11-04-2021 ambulatory MARICHUY CARR Facili ty:[facility] Start: 10-29-2021 End: 10-29-2021 ambulatory MARICHUY CARR Facility: Start: 05-25-2018 End: 05-26-2018 Patient encounter procedure EHAB A EL[place]WY Facility:[facility] Start: 05-15-2018 End: 05-16-2018 Patient encounter procedure DEFAULT PHYSICIAN Facility:[facility] Procedures Date Procedure Procedure Detail Performing Clinician Start: 09-07-2022 Adult depression screening assessment Corine Carr MD Work Phone: Start: 05-25-2018 ARTERY X-RAYS ARMS/LEGS [facility] Plan of Treatment Date Care Activity Detail Author Start: 01-07-2024 Tobacco Screening Tobacco Screening [facility] Start: 11-24-2023 Adult BMI Screening Adult BMI Screening [facility] Start: 09-08-2023 Depression Screening Depression Screening [facility] Start: 11-12-2022 Influenza vaccination Influenza Vaccine [facility] Start: 07-17-2017 Administration of varicella zoster vaccine Zoster (Shingles) Vaccine (1 of 2) [facility] Start: 07-17-2012 Screening for malignant neoplasm of colon Colonoscopy [facility] Start: 2007 Screening for malignant neoplasm of breast Mammogram [facility] Start: 07-17-1988 Screening for malignant neoplasm of cervix Pap Smear [facility] Start: 07-17-1986 DTaP,Tdap and Td Vaccines (1 - Tdap) DTaP,Tdap and Td Vaccines (1 - Tdap) [facility] Start: 1965 Tobacco Counseling Tobacco Counseling [facility] Payers Date Payer Category Payer Medicaid [employer] H[employer] [id number] 2022-Present [phone] [address] [place] [address] [id number] 1965 Unknown [id number] 1965 Unknown [id number] 1967 Unknown [id number] [id number] 1965 Unknown [id number] [id number] 1967 Unknown [id number] [id number] 1967 Unknown [id number] [id number] 1967 Unknown [id number] [id number] 1967 Unknown [id number] [id number] 1967 Unknown [id number] [id number] 1967 Unknown [id number] [id number] 1965 Unknown [id number] 1957 Medicaid [id number] 1957 Self-pay [id number] 1957 Unknown [id number] Unknown Social History Date Type Detail Facility Start: [facility]07-[facility]22 [facility] Start: 04-24-2020 End: 09-07-2022 Cigarettes smoked current (pack per day) - Reported 1 [facility] Start: 09-07-2022 Tobacco use and exposure Smokeless tobacco non-user [facility] Start: 01-06-2023 Alcohol intake Ex-drinker (finding) [facility] Start: 04-24-2020 End: 01-06-2023 Tobacco use panel [facility] How hard is it for y ou to pay for the very basics like food, housing, medical care, and heating Not hard at all [facility] Start: 1965 Sex Assigned At Not on file P [facility] Medical Equipment Procedure Code Equipment Code Equipment Origin al Text Equipment Identifier Dates Screw Bn 85mm 32 mm 7mm 8mm [address]f Drl [address] Hx Hd Ft Ankl - Sna - [id number] Start: 11-08-2022 Goals Date Patient Goal Desired Activity /State Personal health goal Comment on above: Formatting of this n ote might be different from the original. Evaluation of progress towards goal: Safe dc transition home with therapy follow up pending clinical course. Evaluation note Note Date & Type Note Facility Evaluation note Diagnosis Primary hypertension Unspecified essential hypertension ASCVD (arteriosclerotic cardiovascular disease) Unspecified cardiovascular disease Subcapital fracture of hip, right, closed, initial encounter ([facility] documented in this encounter [facility] Evaluation note Note Date & Type Note Facility Evaluation note Diagnosis Subcapital fracture of hip, right, closed, initial encounter ([facility]) documented in this encounter [facility] Evaluation note Note Date & Type Note Facility Evaluation note Diagnosis Subcapital fracture of hip, right, closed, initial encounter ([facility]) documented in this encounter [facility] Instructions Note Date & Type Note Facility Instructions Not on filedocumented in this en counter [facility] Instructions Note Date & Type Note Facility Instructions Not on filedocumented in this en counter [facility] Instructions Note Date & Type Note Facility Instructions Not on filedocumented in this en counter [facility] Summary Purpose Family History No Family History Records FoundNo Family History Records FoundNo Family History Records FoundNo Family History Records Found Advance Directives No Advanced Directives Records FoundLatest Code Status on File Code Status Date Activated Date Inactivated Comments Full Code 11/06/2022 5:47 PM 11/10/2022 4:33 PM Additional Source Comments INFORMATION SOURCE (unrecogn ized section and content) DATE CREATED AUTHOR 06/12/2018 [facility] DATE CREATED AUTHOR AUTHOR'S ORGANIZ ATION 07/13/2022 [facility] DATE CREATED AUTHOR AUTHOR'S ORGANIZ ATION 08/18/2023 [facility] DATE CREATED AUTHOR AUTHOR'S ORGANIZ ATION 08/18/2023 [facility] Reason for Visit (unrecogniz ed section and content) Reason Comments Med Refill Reason Onset Date Comments Med Refill 03/22/2023 Care Teams (unrecognized sec tion and content) [employer] Relationship Specialty Start Date End Date Corine Carr MD [address] [facility] [place] [address] PCP - General Internal Medicine 09/07/22 [employer] Relationship Specialty Start Date End Date Corine Carr MD [address] [facility] [place] [address] PCP - General Internal Medicine 09/07/22 [employer] Super[employer] Relationship Specialty Start Date End Date Corine Carr MD [address] [facility] [address] [facility] [place] [address] PCP - General Internal Medicine 09/07/22 FOR RECORDS PERTAINING TO PATIENTS WHO ARE OR HAVE BEEN ENROLLED IN A CHEMICAL DEPENDENCY/SUBSTANCEABUSE PROGRAM, SOME INFORMATION MAY BE OMITTED. This clinical summary was aggregated from multiple sources. Caution should be exercised in using it in the provision of clinical care. This summary normalizes information from multiple sources, and as a consequence, information in this document may materially change the coding, format and clinical context of patient data. In addition, data may be omitted in some cases. CLINICAL DECISIONS SHOULD BE BASED ON THE PRIMARY CLINICAL RECORDS. [facility] [employer] [facility]. provides no warranty or guarantee of the accuracy or completeness of information in this document.
--- NOTE | 2023-11-20 23:00 | ED.BACK1 ---
HPI HPI - Back Pain/Injury General Chief Complaint: Back Pain/Injury Stated Complaint: Back Pain Time Seen by Provider: 11/20/23 22:49 Source: patient Mode of arrival: walk-in Limitations: no limitations History of Present Illness HPI Narrative: This 58-year-old female with a history of sciatica who also broke her hip last year and has pins in her right hip presents for evaluation of pain in her right buttock that radiates down to her right foot. At times she feels [id number] in her toes. The patient states that she recently drove to [place] for a and stayed in a motel. She states on the way back her sciatica started acting up and she made several stops to try to get out and stretch her legs but today she has increasing pain in the right hip going down to her toes. She denies any bowel or bladder dysfunction. She has not had a fever. She has had EMGs on her legs in the past. She has no chest pain or shortness of breath. She denies any dizziness or syncope. Her daughter brought her to the emergency department. Related Data Previous Rx's ?Medication ?Instructions ?Recorded hydrocodone 5 mg-acetaminophen 325 1 tab PO Q6H PRN pain 5 days #20 09/18/23 mg tablet tabs prednisone 10 mg tablet See Rx Instructions .Route 09/18/23 .COMPLEX #30 tabs Allergies Allergy/AdvReac Type Severity Reaction Status Date / Time Penicillins Allergy Mild Rash Verified 11/20/23 22:39 clindamycin AdvReac Nausea Verified 11/20/23 22:39 ibuprofen AdvReac Joint Pain Verified 11/20/23 22:39 Opioid HPI Opioid Management Most Recent Opioid Data: No Data to Display Review of Systems ROS Status of ROS 10 or more systems reviewed and unremarkable except as noted in history and below PFSH PFSH Social History Little interest or pleasure in doing things: not at all Feeling down, depressed, or hopeless: not at all Exam Narrative Exam Narrative: Vital signs and Nursing Notes reviewed: Patient is afebrile with a normal pulse, blood pressure is elevated at 144/100, she has not hypoxic with pulse ox of 97% on room air General: Awake, alert, oriented, thin female lying on her left hip due to pain in her right hip. No respiratory distress HEENT: Normocephalic atraumatic, mucous membranes are moist and pink, eyes are clear, normal conjunctiva, vision is grossly intact Chest: Lungs are clear to auscultation with good air entry, there is no wheezing rhonchi or rales appreciated no accessory muscle use, patient is speaking in complete sentences-no chest wall tenderness to palpation CVS: Regular rate and rhythm S1-S2, no murmurs rubs or gallops, pulses are brisk and equal bilaterally ABD: Soft, nondistended, nontender, no rebound guarding or rigidity, bowel sounds are normal, no pulsatile masses appreciated Extremities: There is a well-healed incision on the lateral aspect of the right hip. There is tenderness in the right buttock, palpation of this area refers pain down into the patient's leg. Calves are soft and nontender. Feet are warm and sensate. Pulses are brisk and equal. Skin: Normal in appearance without rash,pallor, petechiae or purpura Neuro: No focal deficits Constitutional Vital Signs, click to edit/add: Last Vital Signs Temp 97.7 F 11/20/23 22:39 Pulse 82 11/20/23 22:39 Resp 18 11/20/23 22:39 BP 144/100 H 11/20/23 22:39 Pulse Ox 97 11/20/23 22:39 O2 Del Method Room Air 11/20/23 22:39 Course Vital Signs Vital signs: Vital Signs Temperature 97.7 F 11/20/23 22:39 Pulse Rate 82 11/20/23 22:39 Respiratory Rate 18 11/20/23 22:39 Blood Pressure 144/100 H 11/20/23 22:39 Pulse Oximetry 97 11/20/23 22:39 Oxygen Delivery Method Room Air 11/20/23 22:39 Temperature 97.7 F 11/20/23 22:39 Pulse Rate 82 11/20/23 22:39 Respiratory Rate 18 11/20/23 22:39 Blood Pressure 144/100 H 11/20/23 22:39 Pulse Oximetry 97 11/20/23 22:39 Oxygen Delivery Method Room Air 11/20/23 22:39 MDM - Back Pain/Injury MDM Narrative Medical decision making narrative: This 58-year-old female with a history of sciatica presents for evaluation of worsening right sided hip pain that radiates down her right leg after taking a trip to [place] over the weekend for a . Her neuroexam is normal. She has not had a fever. She has not had any loss of bowel or bladder control. She states she is concerned because the pain was radiating down into her foot with [id number] in her toes. Her feet are warm and sensate. Her neuroexam is normal. She is tender in her right buttock area/piriformis muscle area. Her calves are otherwise soft and nontender with no concerning findings for DVT. She was medicated emergency department with a dose of IM solumedrol. Mineral and Robaxin with Zofran to prevent nausea. She will be discharged home with prescription for Parafon forte and Mineral. [place]AR[place] was reviewed - she had rx for tramadol 11/11/23 Medical Records Attestation: I reviewed the patient's medical records. Discharge Plan Discharge Chief Complaint: Back Pain/Injury Clinical Impression: Sciatica, Lumbar radiculopathy Patient Disposition: Home, Self-Care Time of Disposition Decision: 23:05 Condition: Good Prescriptions / Home Meds: No Action hydrocodone-acetaminophen 5-325 mg tablet 1 tab PO Q6H PRN (Reason: pain) 5 Days Qty: 20 0RF prednisone 10 mg tablet See Rx Instructions .ROUTE .COMPLEX Qty: 30 0RF Rx Instructions: 4 by mouth daily for three days then 3 by mouth daily for three days then 2 by mouth daily for three days then 1 by mouth daily for three days Print Language: Burmese Instructions: Sciatica (ED), Lower Back Exercises (ED) Referrals: Corine Alexandre ND [Primary Care Provider] - 1 week
[2023-11-20] MEDS: METHYLPREDNISOLONE SOD SUCC PF 125 MG/2 ML VIAL IM (23:15)
[2023-11-20] MEDS: HYDROCODONE/ACET 5-325 MG TABLET 1 TAB PO (23:16)
[2023-11-20] MEDS: ONDANSETRON 4 MG RAPDIS TABLET SL (23:16)
[2023-11-20] MEDS: METHOCARBAMOL 500 MG TABLET PO (23:16)
[2023-11-20 23:21] VITALS: BP 130/88; PULSE 70; O2SAT 97
== END 2023-11-20 23:21 | disposition home or self-care (01) ==
PROVIDERS: Emergency Provider Emergency Medicine; PCP Student in an Organized Health Care Education/Training Program
DX: M54.31 Sciatica, right side (principal); M54.16 Radiculopathy, lumbar region
CPT/HCPCS: 96372; 99285; J2919; Q0162

== ENCOUNTER 2024-02-07 22:39 | Emergency (ER) | payer OTHER, SELFPAY ==
[2024-02-07 22:44] VITALS: BP 164/87; PULSE 77; TEMP 36.6; O2SAT 97; BMI 23.3
--- OUTSIDE RECORDS SUMMARY | 2024-02-07 22:45 | XMS_ITS | CCD ---
Author Organization [facility] Care Team Providers Care Director Reactor Projects Name Role Phone PHYSICIAN, DEFAULT Admitting Unavailable PHYSICIAN, DEFAULT Attending Unavailable SELF, REFERRED Primary Care Unavailable ELTAHAWY, EHAB A Admitting Unavailable ELTAHAWY, EHAB A Attending Unavailable JV BOYD Primary Care Unavailable JV BOYD Referring Unavailable [place] Procedure Practitioner Unavailab le ELBAYRON, EHAB A Surgeon Unavailable PAY ., DR ANGELES Admitting [...] Care Unavailable CASS, DR IRIS Huynh Admitting Unavailabl e REINECK, DR IRIS Huynh Attending Unavailabl e REINECK, DR IRIS Huynh Consulting Unavailabl e CARR, MARICHUY Primary Care Unavailable JOVANY, OSMANY Admitting Unavailable JOVANY, OSMANY Attending Unavailable JOVANY, OSMANY Consulting Unavailable JOVANY, OSMANY Admitting Unavailable JOVANY, OSMANY Attending Unavailable JOVANY, OSMANY Consulting Unavailable CARR, MARICHUY Primary Care Unavailable SAID, BINOR Consulting Unavailable NEWJUWAN, MARV Consulting Unavailable Lilly Corine BURGESS Primary Care Provider GEOVANY STANTON Attending Unavailable CORINE CARR Referring Unavailable CORINE CARR Primary Care Unavailable CORINE CARR Attending Unavailable CORINE CARR Referring Unavailable LILLYCORINE Primary Care Unavailable CORINE CARR Attending Unavailable CORINE CARR Referring Unavailable LILLYCORINE Primary Care Unavailable LILLY, MUKATELYNID M Primary Care Unavailable LISSA WALKER Attending Unavailabl e CORINE CARR M Attending Unavailable CORINE CARR M Referring Unavailable LILLYBALKATELYNID M Primary Care Unavailable LILLYBALKATELYNID M Referring Unavailable LILLYBALHAMID M Primary Care Unavailable LILLYBRIDGERID M Referring Unavailable LILLYBALHAMID M Primary Care Unavailable Allergies Allergy Classification Reported Allergen(s) Allergy Type Date of Onset Reaction(s) Facility (5 sources) Clindamycin; Translations: [CLINDAMYCIN] Drug Allergy 7 [facility] Repository (4 sources) Ibuprofen; Translations: [IBUPROFEN] Drug Allergy 9 [facility] Repository (3 sources) Naproxen; Translations: [NAPROXEN] Drug Allergy 9 [facility] Repository (5 sources) Penicillins; Translations: [PENICILLINS] Drug allergy (disorder) 9 [facility] Repository (1 source) Ibuprofen Drug Allergy 3 [facility] Repository (8 sources) Clindamycin Drug Allergy 8 [facility] (8 sources) Ibuprofen Drug Allergy 7 [facility] (8 sources) Naproxen Drug Allergy 2 [facility] (8 sources) Penicillins Propensity to adverse reactions to drug 7 [facility] Medications Current Medications Medication Drug Class(es) Dates Sig (Normalized) Sig (Original) acetaminophen 500 mg oral tablet (8 sources) Start: 11-06-2022 take 1 tablet by mouth every six hours as needed for pain acetaminophen (TYLENOL EXTRA STRENGTH) 500 mg tablet Take 1 tablet (500 mg total) by mouth every 6 (six) hours as needed for pain. 30 tablet 11/06/2022 Active albuterol 0.83 mg/ml inhalation solution (8 sources) beta2-Adrenergic Agonist Start: 11-06-2022 albuterol (PROVENTIL,VENTOLIN ) nebulizer solution 2.5 mg aspirin 81 mg delayed release oral tablet (8 sources) Platelet Aggregation Inhibitor, Nonsteroidal Anti-inflammatory Drug Start: 09-07-2022 take 1 tablet by mouth in the morning aspirin 81 mg Indications: ASCVD (arteriosclerotic cardiovascular disease) Take 1 tablet (81 mg total) by mouth in the morning. 90 tablet 3 09/07/2022 Active atorvastatin 80 mg oral tablet (9 sources) HMG-CoA Reductase Inhibitor Start: 11-23-2023 take 1 tablet by mouth in the morning atorvastatin (LIPITOR) 80 mg tablet Indications: Primary hypertension , ASCVD (arteriosclerotic cardiovascular disease) Take 1 tablet (80 mg total) by mouth in the morning. 90 tablet 11/23/2023 Active Start: 09-07-2022 End: 03-15-2023 take 1 tablet [...] 2 puff(s) by inhalation in the morning wjykszbrue-ajjsitau-yrmrhepgyr (BREZTRI AEROSPHERE) 160-9-4.8 mcg/actuation HFA aerosol inhaler Indications: Chronic bronchitis, unspecified chronic bronchitis type (CMS-HCC) 2 puffs, in the morning and in the evening. 10.7 g 5 12/24/2022 Active calcium carbonate 1250 mg / cholecalciferol 200 unt oral tablet (8 sources) Vitamin D Start: 12-24-2022 take 2 tablets by mouth once in the morning calcium carbonate-vitamin D3 (OSCAL 500 + D) 500 mg(1,250mg) -200 units per tablet Indications: Vitamin D deficiency Take 2 tablets by mouth in the morning and 2 tablets in the evening. Take with meals. 180 tablet 12/24/2022 Active carvedilol 6.25 mg oral tablet (14 sources) alpha-Adrenergic Stephen, beta-Adrenergic Stephen Start: 10-24-2023 End: 01-19-2024 take 1 tablet by mouth once daily at bedtime carvediloL (COREG) 6.25 mg tablet Indications: Primary hypertension TAKE 1 TABLET BY MOUTH EVERY MORNING AND EVERY NIGHT AT BEDTIME 60 tablet 2 01/19/2024 Active Start: 01-17-2023 take 1 tablet by antony th in the morning carvediloL (COREG) 6.25 mg tablet Indications: Primary hypertension take 1 tablet by mouth IN THE MORNING and take 1 tablet by mouth BEFORE BEDTIME 60 tablet 2 01/17/2023 Active celecoxib 100 mg oral capsule (8 sources) Nonsteroidal Anti-inflammatory Drug Start: 11-23-2022 take 1 capsule by mouth in the morning, then take 1 capsule by mouth at bedtime celecoxib (CeleBREX) 100 mg capsule Indications: Subcapital fracture of hip, right, closed, initial encounter ([facility]) Take 1 capsule (100 mg total) by mouth in the morning and 1 capsule (100 mg total) before bedtime. 60 capsule 11/23/2022 Active DULoxetine 30 mg delayed release oral capsule (9 sources) Serotonin and Norepinephrine Reuptake Inhibitor Start: 12-24-2022 End: 03-15-2023 take 1 capsule by mouth once daily in the morning DULoxetine (CYMBALTA) 30 mg capsule Indications: Subcapital fracture of hip, right, closed, initial encounter ([facility]) take 1 capsule by mouth every morning 90 capsule 03/15/2023 Active 30 actuat fluticasone furoate 0.1 mg/actuat / umeclidinium 0.0625 mg/actuat / vilanterol 0.025 mg/actuat dry powder inhaler (6 sources) Anticholinergic, Corticosteroid, beta2-Adrenergic Agonist Start: 08-17-2023 End: 12-22-2023 take 1 puff(s) by inhalation in the morning fluticasone-umec lidin-vilanter (TRELEGY ELLIPTA) 100-62.5-25 mcg blister with device Indications: Chronic obstructive pulmonary disease, unspecified COPD type ([facility]) Inhale 1 puff in the morning. 28 each 6 12/22/2023 Active magnesium oxide 400 mg oral tablet (8 sources) take 1 tablet by mouth in the morning magnesium oxide (MAGOX) 400 mg tablet Take 1 tablet (400 mg total) by mouth in the morning. Active potassium chloride 1.33 meq/ml oral solution (8 sources) potassium chloride (KAYCIEL) 20 mEq/15 mL solution Take 7.5 mL (10 mEq total) by mouth in the morning. Active tiotropium 0.018 mg inhalation powder (8 sources) Anticholinergic Start: 08-12-2023 take 1 capsule by inhalation once daily tiotropium (SPIRIVA WITH HANDIHALER) 18 mcg per inhalation capsule Indications: Chronic obstructive pulmonary disease, unspecified COPD type ([facility]) Place 1 capsule into inhaler and inhale once daily. 30 capsule 2 08/12/2023 Active Start: 03-03-2023 take 1 capsule by in halation once daily SPIRIVA WITH HANDIHALER 18 mcg per inhalation capsule Indications: Chronic obstructive pulmonary disease, unspecified COPD type ([facility]) inhale THE CONTENTS OF ONE CAPSULE IN THE HANDIHALER once daily 30 capsule 2 03/03/2023 Active traMADol hydrochloride 50 mg oral tablet (13 sources) Opioid Agonist Start: 12-09-2023 End: 01-23-2024 take 1 tablet by mouth every six hours as needed for pain traMADoL (ULTRAM) 50 mg tablet Indications: Subcapital fracture of hip, right, closed, initial encounter ([facility]) Take 1 tablet (50 mg total) by mouth every 6 (six) hours as needed for pain. 30 tablet 01/23/2024 Active Start: 12-24-2022 End: 05-27-2023 take 1 tablet by mouth every six hours as needed for pain traMADoL (ULTRAM) 50 mg tablet Indications: Subcapital fracture of hip, right, closed, initial encounter ([facility]) Take 1 tablet (50 mg total) by mouth every 6 (six) hours as needed for pain. 30 tablet 0 05/27/2023 Active varenicline (8 sources) Partial Cholinergic Nicotinic Agonist Start: 11-23-2022 varenicline (CHANTIX STARTING BOX) 0.5 mg (11)- 1 mg (42) tablet Indications: Tobacco use Take 0.5 mg one daily on days 1-3 and 0.5 mg twice daily on days 4-7. Then 1 mg twice daily for a total of 12 weeks. 53 tablet 11/23/2022 Active Start: 11-23-2022 varenicline (C HANTIX STARTING ) 0.5 mg (11)- 1 mg (42) tablet [...] Episodic Aortic; peripheral; and visceral artery aneurysms (10 sources) Aneurysm of iliac artery; Translations: [Aneurysm of iliac artery] Onset: 9 11-07-2022 Chronic Cardiac dysrhythmias (8 sources) Multiple premature ventricular complexes; Translations: [Ventricular premature depolarization] Onset: 3 11-07-2022 Chronic Chronic obstructive pulmonary disease and bronchiectasis (10 sources) Chronic obstructive lung disease; Translations: [Chronic obstructive pulmonary disease, unspecified] Onset: 3 11-06-2022 Chronic Conditions associated with dizziness or vertigo (1 source) Dizziness and giddiness; Translations: [DIZZINESS AND GIDDINESS] Onset: 9 Episodic Congestive heart failure; nonhypertensive (8 sources) Chronic systolic heart failure; Translations: [Chronic systolic (congestive) heart failure] Onset: 3 11-07-2022 Chronic Coronary atherosclerosis and other heart disease (2 sources) Atherosclerotic heart disease of [place] coronary artery without angina pectoris; Translations: [Arteriosclerotic vascular disease] Onset: 3 03-13-2023 Chronic Disorders of lipid metabolism (8 sources) Hyperlipidemia; Translations: [Other hyperlipidemia] Onset: 3 11-07-2022 Chronic Essential hypertension (11 sources) Essential (primary) hypertension; Translations: [Essential hypertension] Onset: 7 03-13-2023 Chronic Fracture of neck of femur (hip) (15 sources) Closed subcapital fracture of right femur; Translations: [Unspecified intracapsular fracture of right femur, initial encounter for closed fracture] Onset: 3 03-13-2023 Episodic Genitourinary symptoms and ill-defined conditions (1 source) Personal history of urinary (tract) infections; Translations: [PERS HX URINARY TRACT INFECTIONS] Onset: 3 Episodic Other aftercare (2 sources) FPC (current) use of aspirin; Translations: [SINGLE STAYER OPERATOR (CURRENT) USE OF ASPIRIN] Onset: 9 Episodic Other connective tissue disease (1 source) Pain in leg, unspecified; Translations: [PAIN IN LEG, UNSPECIFIED] Onset: 9 Episodic Other connective tissue disease (1 source) Other specified soft tissue disorders; Translations: [OTHER SPECIFIED SOFT TISSUE DISORDERS] Onset: 9 Episodic Other injuries and conditions due to external causes (2 sources) Fatigue; Translations: [Exhaustion due to excessive exertion, initial encounter] Onset: 4 12-22-2023 Episodic Other injuries and conditions due to external causes (1 source) Exhaustion due to excessive exertion, initial encounter; Translations: [Exhaustion due to excessive exertion, initial encounter] Onset: 4 Episodic Other lower respiratory disease (1 source) Shortness of breath; Translations: [SHORTNESS OF BREATH] Onset: 9 Episodic Other screening for suspected conditions (not [...] Problem Date Documented Date Episodic/Chronic Cardiac dysrhythmias (9 sources) Palpitations; Translations: [Palpitations] Onset: 02-10-2017 08-11-2021 Episodic Chronic obstructive pulmonary disease and bronchiectasis (1 source) Bronchitis, not specified as acute or chronic; Translations: [Bronchitis, not specified as acute or chronic] Onset: 07-27-2023 Episodic Disorders of teeth and jaw (3 sources) Periapical abscess without sinus; Translations: [Jaw pain] Onset: 08-16-2023 Episodic E Codes: Fall (8 sources) Fall in home; Translations: [Unspecified fall, initial encounter] Onset: 11-06-2022 11-06-2022 Episodic E Codes: Natural/environment (1 source) Exposure to other specified factors, initial encounter; Translations: [EXPOSURE OTHER SPEC FACTORS INITIAL] Onset: 10-30-2021 Episodic Mood disorders (8 sources) Mood disorders Onset: 09-07-2022 09-07-2022 Nonspecific chest pain (13 sources) Chest pain, unspecified; Translations: [Other chest pain] Onset: 02-10-2017 Episodic Other aftercare (1 source) Other middle or intermediate school principal (current) drug therapy; Translations: [OTH SINGLE STAYER OPERATOR CURRENT DRUG THERAPY] Onset: 02-01-2022 Episodic Other lower respiratory disease (1 source) Cough Onset: 07-27-2023 Episodic Other non-traumatic joint disorders (1 source) [...] JEF] Onset: 01-28-2022 Episodic Residual codes; unclassified (8 sources) H/O: atrial fibrillation; Translations: [Other specified postprocedural states] Onset: 11-07-2022 11-07-2022 Episodic Sprains and strains (1 source) Sprain of ligaments of lumbar spine, initial encounter; Translations: [SPRAIN LIGAMENTS LUMBAR SPN INITIAL] Onset: 10-30-2021 Episodic Unclassified (1 source) COUGH, UNSPECIFIED; Translations: [COUGH, UNSPECIFIED] Onset: 07-12-2022 Unclassified (1 source) LOW BACK PAIN, UNSPECIFIED; Translations: [LOW BACK PAIN, UNSPECIFIED] Onset: 10-29-2021 Unclassified (8 sources) Onset: 07-01-2021 07-01-2021 Results Test Name Value Interpretation Reference Range Facility CBC AND AUTO DIFFon 12-23-19 ABSOLUTE BASOPHIL 0.1 X10E9/L Normal 0.0-0.2 [facility] Comment on above: Performed By: #### C BCA, CMP, 27415-0, 64306-2, 95409-9, 2777- 1, TSHR, HA1C, 56292-5, 65086-0 #### [facility] ([id number]) [address], [address] [place] [address] ABSOLUTE NEUTROPHIL 5.1 X10E9/L Normal 1.5-6.6 [facility] Comment on above: Performed By: #### C BCA, CMP, 52813-8, 00135-1, 68108-5, 2777- 1, TSHR, HA1C, 47264-2, 73986-0 #### [facility] ([id number]) [address], [address] [place] [address] Basophils/100 WBC (Bld) 0.6 % Normal [facility] Comment on above: Performed By: #### C BCA, CMP, 63708-7, 98545-5, 68187-2, 2777- 1, TSHR, HA1C, 81276-0, 26450-6 #### [facility] ([id number]) [address], [address] [place] [address] Eosinophils (Bld) [#/Vol] 0.2 10*3/uL Normal 0.0-0.4 [facility] Comment on above: Performed By: #### C BCA, CMP, 29420-7, 57671-9, 74913-1, 2777- 1, TSHR, HA1C, 56191-3, 97264-1 #### [facility] ([id number]) [address], [address] [place] [address] Eosinophils/100 WBC (Bld) 1.7 % Normal [facility] Comment on above: Performed By: #### C BCA, CMP, 52195-8, 72909-7, 86091-7, 2777- 1, TSHR, HA1C, 95019-9, 90927-6 #### [facility] ([id number]) [address], [address] [place] [address] Erythrocyte distribution width (RBC) [Ratio] 13.6 % Normal 11.5-15.0 [facility] Comment on above: Performed By: #### C BCA, CMP, 33972-4, 02417-3, 45227-4, 2777- 1, TSHR, HA1C, 65850-0, 87123-2 #### [facility] ([id number]) [address], [address] [place] [address] Hematocrit (Bld) [Volume fraction] 41.4 % Normal 35-47 [facility] Comment on above: Performed By: #### C BCA, CMP, 95172-0, 23095-4, 49941-4, 2777- 1, TSHR, HA1C, 88575-7, 28921-9 #### [facility] ([id number]) [address], [address] [place] [address] Hemoglobin (Bld) [Mass/Vol] 14.0 g/dL Normal 11.7-15.5 [facility] Comment on above: Performed By: #### C BCA, CMP, 61847-0, 70775-9, 80846-2, 2777- 1, TSHR, HA1C, 79736-0, 66970-2 #### [facility] ([id number]) [address], [address] [place] [address] Lymphocytes (Bld) [#/Vol] 2.9 10*3/uL Normal 1.0-3.5 [facility] Comment on above: Performed By: #### C BCA, CMP, 44568-2, 00484-5, 55407-3, 2777- 1, TSHR, HA1C, 42546-9, 25227-9 #### [facility] ([id number]) [address], [address] [place] [address] Lymphocytes/100 WBC (Bld) 32.8 % Normal [facility] Comment on above: Performed By: #### C BCA, CMP, 27290-8, 79019-4, 53007-8, 2777- 1, TSHR, HA1C, 57126-8, 30722-8 #### [facility] ([id number]) [address], [address] [place] [address] MCH (RBC) [Entitic mass] 32.2 pg Normal 27-34 [facility] Comment on above: Performed By: #### C BCA, CMP, 19253-6, 17413-0, 29995-9, 2777- 1, TSHR, HA1C, 07431-0, 07274-6 #### [facility] ([id number]) [address], [address] [place] [address] MCHC (RBC) [Mass/Vol] 33.9 g/dL Normal 32-36 [facility] Comment on above: Performed By: #### C BCA, CMP, 37600-4, 30314-7, 15969-1, 2777- 1, TSHR, HA1C, 63034-3, 39411-8 #### [facility] ([id number]) [address], [address] [place] [address] MCV (RBC) [Entitic vol] 95 fL Normal 80-100 [facility] Comment on above: Performed By: #### C BCA, CMP, 68100-9, 50628-6, 70469-2, 2777- 1, TSHR, HA1C, 70125-0, 71628-9 #### [facility] ([id number]) [address], [address] [place] [address] Monocytes (Bld) [#/Vol] 0.6 10*3/uL Normal 0-0.9 [facility] Comment on above: Performed By: #### C BCA, CMP, 32528-0, 51574-3, 15341-9, 2777- 1, TSHR, HA1C, 53247-3, 08402-6 #### [facility] ([id number]) [address], [address] [place] [address] Monocytes/100 WBC (Bld) 7.0 % Normal [facility] Comment on above: Performed By: #### C BCA, CMP, 69024-1, 59391-9, 50401-5, 2777- 1, TSHR, HA1C, 22470-4, 22830-5 #### [facility] ([id number]) [address], [address] [place] [address] Neutrophils/100 WBC (Bld) 57.9 % Normal [facility] Comment on above: Performed By: #### C BCA, CMP, 88567-0, 18667-8, 73821-5, 2777- 1, TSHR, HA1C, 02044-3, 00337-7 #### [facility] ([id number]) [address], [address] [place] [address] Platelet mean volume (Bld) [Entitic vol] 10.1 fL Normal 7-12 [facility] Comment on above: Performed By: #### C BCA, CMP, 33360-7, 94041-2, 04675-5, 2777- 1, TSHR, HA1C, 19150-9, 30966-4 #### [facility] ([id number]) [address], [address] [place] [address] Platelets (Bld) [#/Vol] 254 10*3/uL Normal 150-450 [facility] Comment on above: Performed By: #### C BCA, CMP, 03424-4, 17307-3, 86194-5, 2777- 1, TSHR, HA1C, 64351-0, 01125-4 #### [facility] ([id number]) [address], [address] [place] [address] RBC COUNT 4.37 X10E12/L Normal 3.80-5.20 [facility] Comment on above: Performed By: #### C BCA, CMP, 35598-6, 66737-1, 89144-1, 2777- 1, TSHR, HA1C, 59623-7, 92990-1 #### [facility] ([id number]) [address], [address] [place] [address] WBC (Bld) [#/Vol] 8.7 10*3/uL Normal 4.0-11.0 [facility] Comment on above: Performed By: #### C BCA, CMP, 70611-4, 82509-6, 31496-6, 2777- 1, TSHR, HA1C, 76957-0, 46578-7 #### [facility] ([id number]) [address], [address] [place] [address] COMPREHENSIVE METABOLIC PANE Rogelio 12-23-2023 Albumin [Mass/Vol] 4.1 g/dL Normal 3.2-5.3 [facility] Comment on above: Performed By: #### C BCA, CMP, 09812-8, 19319-2, 16766-1, 2777- 1, TSHR, HA1C, 48759-2, 53234-8 #### [facility] ([id number]) [address], [address] [place] [address] ALP [Catalytic activity/Vol] 116 U/L Normal 39-130 [facility] Comment on above: Performed By: #### C BCA, CMP, 98447-8, 69174-9, 47200-9, 2777- 1, TSHR, HA1C, 42173-5, 14095-6 #### [facility] ([id number]) [address], [address] [place] [address] ALT [Catalytic activity/Vol] 14 U/L Normal 0-31 [facility] Comment on above: Performed By: #### C BCA, CMP, 59499-7, 17822-3, 11176-1, 2777- 1, TSHR, HA1C, 82053-5, 21981-9 #### [facility] ([id number]) [address], [address] [place] [address] Anion gap [Moles/Vol] 9 mmol/L Normal 5-15 [facility] Comment on above: Performed By: #### C BCA, CMP, 15222-2, 00251-0, 80982-7, 2777- 1, TSHR, HA1C, 72098-0, 08426-9 #### [facility] ([id number]) [address], [address] [place] [address] AST [Catalytic activity/Vol] 17 U/L Normal 0-41 [facility] Comment on above: Performed By: #### C BCA, CMP, 17190-9, 62816-4, 59378-4, 2777- 1, TSHR, HA1C, 43173-5, 79877-2 #### [facility] ([id number]) [address] [place] [address] Bilirubin [Mass/Vol] 0.9 mg/dL Normal 0.3-1.2 [facility] Comment on above: Performed By: #### C BCA, CMP, 45362-9, 73508-3, 51438-7, 2777- 1, TSHR, HA1C, 87951-8, 65625-9 #### [facility] ([id number]) [address], [address] [place] [address] Calcium [Mass/Vol] 9.7 mg/dL Normal 8.5-10.5 [facility] Comment on above: Performed By: #### C BCA, CMP, 89373-5, 59744-9, 79984-1, 2777- 1, TSHR, HA1C, 40153-3, 23542-6 #### [facility] ([id number]) [address], [address] [place] [address] Chloride [Moles/Vol] 106 mmol/L Normal 98-109 [facility] Comment on above: Performed By: #### C BCA, CMP, 60534-9, 31450-6, 67048-1, 2777- 1, TSHR, HA1C, 10087-4, 75693-5 #### [facility] ([id number]) [address], [address] [place] [address] CO2 [Moles/Vol] 29 mmol/L Normal 22-32 [facility] Comment on above: Performed By: #### C BCA, CMP, 61640-9, 01771-4, 90020-8, 2777- 1, TSHR, HA1C, 40651-0, 02618-6 #### [facility] ([id number]) [address] [place] [address] Creatinine [Mass/Vol] 0.69 mg/dL Normal 0.40-1.00 [facility] Comment on above: Result Comment: METH OD TRACEABLE TO IDMS STANDARD Performed By: #### C BCA, CMP, 59063-6, 68343-5, 09616-2, 2777-1, TSHR, HA1C, 71614-1, 52147-2 #### [facility] ([id number]) [address], [address] [place] [address] eGFR (CKD-EPI) NON-RACE DEPENDENT >90 Normal >59 [facility] Comment on above: Result Comment: Reported eGFR is based on the CKD-EPI 2020 equation that does not use a race coefficient. Performed By: #### C BCA, CMP, 08682-3, 32277-9, 42847-7, 2777-1, TSHR, HA1C, 99176-8, 42321-2 #### [facility] ([id number]) [address] [place] [address] Glucose [Mass/Vol] 96 mg/dL Normal 65-99 [facility] Comment on above: Performed By: #### C BCA, CMP, 60840-3, 66325-8, 19454-0, 2777- 1, TSHR, HA1C, 02781-4, 65848-4 #### [facility] ([id number]) [address] [place] [address] Potassium [Moles/Vol] 4.3 mmol/L Normal 3.5-5.0 [facility] Comment on above: Performed By: #### C BCA, CMP, 93836-6, 48631-7, 17647-6, 2777- 1, TSHR, HA1C, 31075-1, 59598-7 #### [facility] ([id number]) [address], [address] [place] [address] Protein [Mass/Vol] 6.8 g/dL Normal 6.0-8.0 [facility] Comment on above: Performed By: #### C BCA, CMP, 63576-0, 59069-3, 14674-4, 2777- 1, TSHR, HA1C, 55196-4, 62452-4 #### [facility] [facility] ([id number]) [address], [address] [place] [address] Sodium [Moles/Vol] 144 mmol/L Normal 134-146 [facility] Comment on above: Performed By: #### C BCA, CMP, 68582-5, 99673-6, 18371-9, 2777- 1, TSHR, HA1C, 78039-7, 04325-4 #### [facility] ([id number]) [address], [address] [place] [address] Urea nitrogen [Mass/Vol] 8 mg/dL Normal 5-23 [facility] Comment on above: Performed By: #### C BCA, CMP, 84956-8, 03584-6, 00756-6, 2777- 1, TSHR, HA1C, 54601-2, 02149-8 #### [facility] ([id number]) [address] [place] [address] ESR Photometric method (Bld) [Velocity]on 12-23-2023 ESR, ERYTHROCYTE SEDIMENTATION RATE 2 mm/h Normal 0-30 [facility] Comment on above: Performed By: #### C BCA, CMP, 24014-5, 94379-7, 57397-3, 2777- 1, TSHR, HA1C, 05594-6, 02377-5 #### [facility] ([id number]) [address], [address] [place] [address] HGB A1C (GLYCO-HGB)on 2023 Glucose [Mass/Vol] 123 mg/dL Normal [facility] Comment on above: Performed By: #### C BCA, CMP, 74080-1, 44533-8, 85065-9, 2777- 1, TSHR, HA1C, 62773-3, 48116-6 #### [facility] ([id number]) [address], [address] [place] [address] HbA1c (Bld) [Mass fraction] 5.9 % High 4.4-5.6 [facility] Comment on above: Result Comment: NOTE ADA Guidelines Result HgbA1c Normal : less than 5.7 % Prediabetes : 5.7 % to 6.4 % Diabetes : > 6.4 % Use with caution in patients with abnormal hemoglobin variants as the half-life of red blood cells and in vivo glycation rates are affected. Performed By: #### C BCA, CMP, 25575-6, 39298-9, 74745-5, 2777-1, TSHR, HA1C, 07994-0, 28865-2 #### [facility] ([id number]) [address], [address] [place] [address] Lipid 1996 panelon 4 Cholesterol [Mass/Vol] 105 mg/dL Low 150-200 [facility] Comment on above: Performed By: #### C BCA, CMP, 95878-3, 43286-1, 83928-9, 2777- 1, TSHR, HA1C, 41371-4, 76002-7 #### [facility] ([id number]) [address], [address] [place] [address] Cholesterol in HDL [Mass/Vol] 39 mg/dL Low >39 [facility] Comment on above: Result Comment: HDL <40 mg/dL - High Risk HDL > or = 40mg/dL- Desirable HDL >60 mg/dL - Negative Risk Performed By: #### C BCA, CMP, 86327-1, 14649-7, 97613-1, 2777-1, TSHR, HA1C, 84064-6, 94410-0 #### [facility] ([id number]) [address], [address] [place] [address] Cholesterol in LDL [Mass/Vol] 45 mg/dL Normal <130 [facility] Comment on above: Result Comment: LDL <100 mg/dL - Desirable LDL >160 mg/dL - High Risk Performed By: #### C BCA, CMP, 84651-2, 29863-8, 24772-5, 2777-1, TSHR, HA1C, 91123-3, 47587-8 #### [facility] ([id number]) [address] [place] [address] Cholesterol in VLDL [Mass/Vol] 21 mg/dL Normal 0-30 [facility] Comment on above: Performed By: #### C BCA, CMP, 70879-9, 41849-8, 77195-7, 2777- 1, TSHR, HA1C, 00959-6, 18879-9 #### [facility] ([id number]) [address], [address] [place] [address] CHOLESTEROL:HDL 2.7 Normal 1.0-5.0 [facility] Comment on above: Performed By: #### C BCA, CMP, 18325-2, 64094-0, 07430-5, 2777- 1, TSHR, HA1C, 83956-7, 61141-7 #### [facility] ([id number]) [address], [address] [place] [address] Triglyceride [Mass/Vol] 104 mg/dL Normal 27-150 [facility] Comment on above: Performed By: #### C BCA, CMP, 77579-5, 31769-4, 68722-3, 2777- 1, TSHR, HA1C, 45752-8, 43129-2 #### [facility] ([id number]) [address] [place] [address] MAGNESIUMon 12-23-2023 Magnesium [Mass/Vol] 1.6 mg/dL Low 1.8-2.6 [facility] Comment on above: Performed By: #### C BCA, CMP, 07155-6, 60698-3, 97405-7, 2777- 1, TSHR, HA1C, 49667-5, 22114-5 #### [facility] ([id number]) [address] [place] [address] PHOSPHORUSon 12-23-2023 Phosphate [Mass/Vol] 3.6 mg/dL Normal 2.4-4.9 [facility] Comment on above: Performed By: #### C BCA, CMP, 64249-8, 52975-5, 97030-6, 2777- 1, TSHR, HA1C, 31533-5, 88828-1 #### [facility] ([id number]) [address], [address] [place] [address] Procalcitonin IA [Mass/Vol]o n 12-23-2023 PROCALCITONIN <0.05 Normal <0.05 [facility] Comment on above: Result Comment: NOTE <0.50 ng/mL - Low risk of severe sepsis and/or septic shock. <2.00 ng/mL - Recommend retesting within 6-24 hours. >2.00 ng/mL - High risk of sepsis and/or septic shock. Performed By: #### C BCA, CMP, 34167-0, 45541-3, 33169-6, 2777-1, TSHR, HA1C, 48653-1, 50957-3 #### [facility] ([id number]) [address] [place] [address] TSH WITH REFLEXon 12-23-2023 TSH 0.83 uIU/mL Normal 0.49-4.67 [facility] Comment on above: Performed By: #### C BCA, CMP, 71766-3, 04680-5, 69076-6, 2777- 1, TSHR, HA1C, 94406-2, 44828-4 #### [facility] ([id number]) [address] [place] [address], [address] [place] [address] Vitamin D+Metabolites [Mass/ Vol]on 12-23-2023 VITAMIN D 25 HYD TOT 24.3 ng/mL Low 30-100 [facility] Comment on above: Result Comment: Vitamin D status 25 [place] Vitamin D Deficiency <20 ng/mL Insufficiency 20-29 ng/mL Sufficiency 30-100 ng/mL Toxicity >100 ng/mL NOTE: A pediatric reference range has not been established by the science analyst of this kit. The [place] [employer] recommends a Vitamin D level of = or >20ng/mL in infants and children. Performed By: #### C BCA, CMP, 36764-6, 63116-3, 69382-9, 2777-1, TSHR, HA1C, 40310-8, 52426-7 #### [facility] ([id number]) [address] [place] [address], [address] [place] [address] AMYLASEon 06-03-2022 Amylase [Catalytic activity/Vol] 82 U/L Normal 25-115 [facility] Comment on above: Performed By: #### L IVER, CMADM, LIPA, LAUREL, BMP #### [facility] [address] [place] [address] Dr. Maxi Esparza CARDIAC DONNA 3-6on 3 CK [Catalytic activity/Vol] 69 U/L Normal 26-192 [facility] Comment on above: Performed By: #### C MREP #### [facility] [address] [place] [address] Dr. Maxi Esparza CK.MB [Mass/Vol] 1.29 ng/mL Normal <=3.60 [facility] Comment on above: Performed By: #### C MREP #### [facility] [address] [place] [address] Dr. Maxi Esparza HSTROP 10.5 pg/mL Normal 4.0-51.3 [facility] Comment on above: Result Comment: CUT- OFF POINTS HAVE BEEN ESTABLISHED BASED ON THE FOURTH UNIVERSAL DEFINITIONS OF MYOCARDIAL INFARCTION. THE UPPER REFERENCE LIMIT (URL) OF TROPONIN, DEFINED THE 99TH PERCENTILE OF cTnI DISTRIBUTION IN A REFERENCE POPULATION, HAS BEEN CONFIRMED THE DECISION THRESHOLD FOR MS DIAGNOSIS. Performed By: #### C MREP #### [facility] [address] [address] [address] Maxi Esparza CARDIAC DONNA ADMITon 023 CK [Catalytic activity/Vol] 75 U/L Normal 26-192 [facility] Comment on above: Performed By: #### L IVER, CMADM, LIPA, LAUREL, BMP ####[facility] [address] [address]DrZander Esparza CK.MB [Mass/Vol] 1.55 ng/mL Normal <=3.[address] [facility] Comment on above: Performed By: #### L IVER, CMADM, LIPA, LAUREL, BMP ####[facility] [id number] [address]DrZander Esparza HSTROP 10.2 pg/mL Normal 4.0-51.3 [facility] Comment on above: Result Comment: CUT- OFF POINTS HAVE BEEN ESTABLISHED BASED ON THE FOURTH UNIVERSAL DEFINITIONS OF MYOCARDIAL INFARCTION. THE UPPER REFERENCE LIMIT (URL) OF TROPONIN, DEFINED THE 99TH PERCENTILE OF cTnI DISTRIBUTION IN A REFERENCE POPULATION, HAS BEEN CONFIRMED THE DECISION THRESHOLD FOR MS DIAGNOSIS. Performed By: #### L IVER, CMADM, LIPA, LAUREL, BMP ####[facility] [address] [address]DrZander Esparza BENTLEY 34 ng/mL Normal 9-82 [facility] Comment on above: Performed By: #### L IVER, CMADM, LIPA, LAUREL, BMP ####[facility] [address] [address]DrZander Esparza CBC AUTO DIFFon 06-03-2022 BASO # 0.1 103/ul Normal 0.0-0.1 [facility] Comment on above: Performed By: #### C BC #### [facility] [address] [place] [address] Dr. Maxi Esparza Basophils/100 WBC (Bld) 0.8 % Normal 0.2-2.0 [facility] Comment on above: Performed By: #### C BC #### [facility] [address] [place] [address] Dr. Maxi Esparza EO # 0.1 103/ul Normal 0.0-0.7 [facility] Comment on above: Performed By: #### C BC #### [facility] [address] [place] [address] Dr. Maxi Esparza Eosinophils/100 WBC (Bld) 0.9 % Normal 0.9-7.0 [facility] Comment on above: Performed By: #### C BC #### [facility] [address] [place] [address] Dr. Maix Esparza Erythrocyte distribution width (RBC) [Ratio] 12.8 % Normal 11.0-15.0 [facility] Comment on above: Performed By: #### C BC #### [facility] [address] [place] [address] Dr. Maxi Esparza Hematocrit (Bld) [Volume fraction] 44.2 % Normal 36.0-48.0 [facility] Comment on above: Performed By: #### C BC #### [facility] [address] [place] [address] Dr. Maxi Esparza Hemoglobin (Bld) [Mass/Vol] 15.3 g/dL Normal 12.0-16.0 [facility] Comment on above: Performed By: #### C BC #### [facility] [address] [place] [address] Dr. Maxi Esparza IG # 0.02 10e3/ul Normal 0.00-0.03 [facility] Comment on above: Performed By: #### C BC #### [facility] [address] [place] [address] Dr. Maxi Esparza IG % 0.2 % Normal 0.0-0.5 [facility] Comment on above: Performed By: #### C BC #### [facility] [address] [place] [address] Dr. Maxi Esparza LYMPH # 3.3 103/ul Normal 1.2-3.8 [facility] Comment on above: Performed By: #### C BC #### [facility] [address] [place] [address] Dr. Maxi Esparza Lymphocytes/100 WBC (Bld) 31.8 % Normal 20.5-60.0 [facility] Comment on above: Performed By: #### C BC #### [facility] [address] [place] [address] Dr. Maxi Esparza MANUAL DIFF REQ NO Normal [facility] Comment on above: Performed By: #### C BC #### [facility] [address] [place] [address] Dr. Maxi Esparza MCH (RBC) [Entitic mass] 31.6 pg Normal 26.7-34.0 [facility] Comment on above: Performed By: #### C BC #### [facility] [address] [place] [address] Dr. Maxi Esparza MCHC (RBC) [Mass/Vol] 34.6 g/dL Normal 29.9-35.2 [facility] Comment on above: Performed By: #### C BC #### [facility] [address] [place] [address] Dr. Maxi Esparza MCV (RBC) [Entitic vol] 91.3 fL Normal 81.0-99.0 [facility] Comment on above: Performed By: #### C BC #### [facility] [address] [place] [address] Dr. Maxi Esparza MONO # 0.6 103/ul Normal 0.3-0.8 [facility] Comment on above: Performed By: #### C BC #### [facility] [address] [place] [address] Dr. Maxi Esparza Monocytes/100 WBC (Bld) 5.7 % Normal 1.7-12.0 [facility] Comment on above: Performed By: #### C BC #### [facility] [address] [place] [address] Dr. Maxi Esparza NEUT # 6.3 103/ul Normal 1.4-6.5 [facility] Comment on above: Performed By: #### C BC #### [facility] [address] [place] [address] Dr. Maxi Esparza Neutrophils/100 WBC (Bld) 60.6 % Normal 43.0-75.0 [facility] Comment on above: Performed By: #### C BC #### [facility] [address] [place] [address] Dr. Maxi Esparza Platelet mean volume (Bld) [Entitic vol] 10.2 fL Normal 9.5-13.5 [facility] Comment on above: Performed By: #### C BC #### [facility] [address] [place] [address] Dr. Maxi Esparza PLT 332 103/ul Normal 150-450 [facility] Comment on above: Performed By: #### C BC #### [facility] [address] [place] [address] Dr. Maxi Esparza RBC 4.84 106/ul Normal 4.20-5.40 [facility] Comment on above: Performed By: #### C BC #### [facility] [address] [place] [address] Dr. Maxi Esparza WBC 10.4 103/ul Normal 4.0-11.0 [facility] Comment on above: Performed By: #### C BC #### [facility] [address] [place] [address] ABD/PELV W CONon 06-04-[address] ABD/PELV W CON EXAM: CT ABD/PELV [...] JENNIFER AARON Date: 2022-06-03 00:27 Normal [facility] D-DIMERon 06-03-2022 D-DIMER 0.28 mg/L FEU Normal <=0.59 [facility] Comment on above: Performed By: #### D DIM #### [facility] [address] [place], [place] [address] Dr. Maxi Esparza D-DIMER COMMENTS SEE BELOW Normal [facility] Comment on above: Result Comment: Incr eases [...] hospitalization. Performed By: #### D DIM #### [facility] [address] [place], [place] [address] Dr. Maxi Esparza LIPASEon 06-03-2022 Lipase [Catalytic activity/Vol] 131.0 U/L Normal 73.0-393.0 [facility] Comment on above: Performed By: #### L IVER, CMADM, LIPA, LAUREL, BMP ####[facility] [address] [address]Dr. Maxi Esparza LIVER PROFILEon 06-03-2022 Albumin [Mass/Vol] 3.9 g/dL Normal 3.4-5.0 [facility] Comment on above: Performed By: #### L IVER, CMADM, LIPA, LAUREL, BMP #### [facility] [address] [place] [address] Dr. Maxi Esparza Albumin/Globulin [Mass ratio] 1.1 {ratio} Normal [facility] Comment on above: Performed By: #### L IVER, CMADM, LIPA, LAUREL, BMP #### [facility] [address] [place] [address] Dr. Maxi Esparza ALP [Catalytic activity/Vol] 150 U/L Critically high 46-116 [facility] Comment on above: Performed By: #### L IVER, CMADM, LIPA, LAUREL, BMP #### [facility] [address] [place] [address] Dr. Maxi Esparza ALT [Catalytic activity/Vol] 23 U/L Normal 14-59 [facility] Comment on above: Performed By: #### L IVER, CMADM, LIPA, LAUREL, BMP #### [facility] [address] [place] [address] Dr. Maxi Esparza AST [Catalytic activity/Vol] 19 U/L Normal 15-37 [facility] Comment on above: Performed By: #### L IVER, CMADM, LIPA, LAUREL, BMP #### [facility] [address] [place] [address] Dr. Maxi Esparza BILI, CONJUGATED 0.1 mg/dL Normal 0.0-0.2 [facility] Comment on above: Performed By: #### L IVER, CMADM, LIPA, LAUREL, BMP #### [facility] [address] [place] [address] Dr. Maxi Esparza Bilirubin [Mass/Vol] 0.5 mg/dL Normal 0.2-1.0 [facility] Comment on above: Performed By: #### L IVER, CMADM, LIPA, LAUREL, BMP #### [facility] [address] [place] [address] Dr. Maxi Esparza Globulin (S) [Mass/Vol] 3.6 g/dL Normal [facility] Comment on above: Performed By: #### L IVER, CMADM, LIPA, LAUREL, BMP #### [facility] [address] [address] [address] Maxi Esparza Protein [Mass/Vol] 7.5 g/dL Normal 6.4-8.2 [facility] Comment on above: Performed By: #### L IVER, CMADM, LIPA, LAUREL, BMP #### [facility] [address] [place] [address] Dr. Maxi Esparza PROF CHEM 8 (BAS METB)on Anion gap [Moles/Vol] 12.7 mmol/L Normal [facility] Comment on above: Performed By: #### L IVER, CMADM, LIPA, LAUREL, BMP #### [facility] [address] [place] [address] Dr. Maxi Esparza Calcium [Mass/Vol] 8.9 mg/dL Normal 8.5-10.1 [facility] Comment on above: Performed By: #### L IVER, CMADM, LIPA, LAUREL, BMP #### [facility] [address] [place] [address] Dr. Maxi Esparza Chloride [Moles/Vol] 97 mmol/L Critically low 98-107 [facility] Comment on above: Performed By: #### L IVER, CMADM, LIPA, LAUREL, BMP #### [facility] [address] [place] [address] Dr. Maxi Esparza CO2 [Moles/Vol] 27.8 mmol/L Normal 21.0-32.[address] [facility] Comment on above: Performed By: #### L IVER, CMADM, LIPA, LAUREL, BMP #### [facility] [address] [place] [address] Dr. Maxi Esparza Creatinine [Mass/Vol] 1.02 mg/dL Normal 0.55-1.02 [facility] Comment on above: Performed By: #### L IVER, CMADM, LIPA, LAUREL, BMP #### [facility] [address] [address] [address] Maxi Esparza EGFR-AF MALAGASY >60 Normal >=60 [facility] Comment on above: Performed By: #### L IVER, CMADM, LIPA, LAUREL, BMP #### [facility] [address] [address] [address] Maxi Esparza EGFR-NON AF MALAGASY 56 mL/min/1.73m2 Critically low >=60 [facility] Comment on above: Performed By: #### L IVER, CMADM, LIPA, LAUREL, BMP #### [facility] [address] [place] [address] Dr. Maxi Esparza Glucose [Mass/Vol] 127 mg/dL Critically high 74-106 T [facility] Comment on above: Performed By: #### L IVER, CMADM, LIPA, LAUREL, BMP #### [facility] [address] [address] [address] Maxi Esparza Potassium [Moles/Vol] 3.5 mmol/L Normal 3.5-5.1 [facility] Comment on above: Performed By: #### L IVER, CMADM, LIPA, LAUREL, BMP #### [facility] [address] [place] [address] Dr. Maxi Esparza Sodium [Moles/Vol] 134 mmol/L Critically low 136-145 Th [facility] Comment on above: Performed By: #### L IVER, CMADM, LIPA, LAUREL, BMP #### [facility] [address] [place] [address] Dr. Maxi Esparza Urea nitrogen [Mass/Vol] 14.0 mg/dL Normal 7.0-18.0 [facility] Comment on above: Performed By: #### L IVER, CMADM, LIPA, LAUREL, BMP #### [facility] [address] [place] [address] Dr. Maxi Esparza Urea nitrogen/Creatinine [Mass ratio] 13.7 mg/mg Normal [facility] Comment on above: Performed By: #### L IVER, CMADM, LIPA, LAUREL, BMP #### [facility] [address] [address] [address] Maxi Esparza XR CHEST 2 Von [...] MARV DEY Date: 2022-06-02 22:58 Normal [facility] CBC AUTO DIFFon 01-29-2022 BASO # 0.1 103/ul Normal 0.0-0.1 [facility] Comment on above: Performed By: #### C BC #### [facility] [address] [place] [address] Dr. Maxi Esparza Basophils/100 WBC (Bld) 0.7 % Normal 0.2-2.0 [facility] Comment on above: Performed By: #### C BC #### [facility] [address] [place] [address] Dr. Maxi Esparza EO # 0.1 103/ul Normal 0.0-0.7 [facility] Comment on above: Performed By: #### C BC #### [facility] [address] [address] [address] Maxi Esparza Eosinophils/100 WBC (Bld) 0.5 % Critically low 0.9-7.0 [facility] Comment on above: Performed By: #### C BC #### [facility] [address] [place] [address] Dr. Maxi Esparza Erythrocyte distribution width (RBC) [Ratio] 13.2 % Normal 11.0-15.0 [facility] Comment on above: Performed By: #### C BC #### [facility] [address] [place] [address] Dr. Maxi Esparza Hematocrit (Bld) [Volume fraction] 39.1 % Normal 36.0-48.0 [facility] Comment on above: Performed By: #### C BC #### [facility] [address] [place] [address] Dr. Maxi Esparza Hemoglobin (Bld) [Mass/Vol] 13.5 g/dL Normal 12.0-16.0 [facility] Comment on above: Performed By: #### C BC #### [facility] [address] [place] [address] Dr. Maxi Esparza IG # 0.01 10e3/ul Normal 0.00-0.03 [facility] Comment on above: Performed By: #### C BC #### [facility] [address] [place] [address] Dr. Maxi Esparza IG % 0.1 % Normal 0.0-0.5 [facility] Comment on above: Performed By: #### C BC #### [facility] [address] [place] [address] Dr. Maxi Esparza LYMPH # 3.9 103/ul Critically high 1.2-3.8 [facility] Comment on above: Performed By: #### C BC #### [facility] [address] [place] [address] Dr. Maxi Esparza Lymphocytes/100 WBC (Bld) 42.9 % Normal 20.5-60.0 [facility] Comment on above: Performed By: #### C BC #### [facility] [address] [place] [address] Dr. Maxi Esparza MANUAL DIFF REQ NO Normal [facility] Comment on above: Performed By: #### C BC #### [facility] [address] [place] [address] Dr. Maxi Esparza MCH (RBC) [Entitic mass] 31.8 pg Normal 26.7-34.0 [facility] Comment on above: Performed By: #### C BC #### [facility] [address] [place] [address] Dr. Maxi Esparza MCHC (RBC) [Mass/Vol] 34.5 g/dL Normal 29.9-35.2 [facility] Comment on above: Performed By: #### C BC #### [facility] [address] [address] [address] Maxi Esparza MCV (RBC) [Entitic vol] 92.0 fL Normal 81.0-99.0 [facility] Comment on above: Performed By: #### C BC #### [facility] [address] [address] [address] Maxi Esparza MONO # 0.6 103/ul Normal 0.3-0.8 [facility] Comment on above: Performed By: #### C BC #### [facility] [address] [place] [address] Dr. Maxi Esparza Monocytes/100 WBC (Bld) 6.7 % Normal 1.7-12.0 [facility] Comment on above: Performed By: #### C BC #### [facility] [address] [place] [address] Dr. Maxi Esparza NEUT # 4.5 103/ul Normal 1.4-6.5 [facility] Comment on above: Performed By: #### C BC #### [facility] [address] [place] [address] Dr. Maxi Esparza Neutrophils/100 WBC (Bld) 49.1 % Normal 43.0-75.0 [facility] Comment on above: Performed By: #### C BC #### [facility] [address] [place] [address] Dr. Maxi Esparza Platelet mean volume (Bld) [Entitic vol] 10.4 fL Normal 9.5-13.5 [facility] Comment on above: Performed By: #### C BC #### [facility] Laboratory [address] [place] [address] Dr. Maxi Esparza PLT 250 103/ul Normal 150-450 [facility] Comment on above: Performed By: #### C BC #### [facility] [address] [place] [address] Dr. Maxi Esparza RBC 4.25 106/ul Normal 4.20-5.40 [facility] Comment on above: Performed By: #### C BC #### [facility] [address] [address] [address] Maxi Esparza WBC 9.2 103/ul Normal 4.0-11.0 [facility] Comment on above: Performed By: #### C BC #### [facility] [address] [address] [address] Maxi Esparza CRPon 01-29-2022 CRP [Mass/Vol] mg/L Normal <=1.0 [facility] Comment on above: Performed By: #### B MP, CRP ####[facility] [address] [address]Dr. Maxi Esparza PROF CHEM 8 (BAS METB)on Anion gap [Moles/Vol] 7.6 mmol/L Normal [facility] Comment on above: Performed By: #### B MP, CRP ####[facility] [address] [address]Dr. Maxi Esparza Calcium [Mass/Vol] 9.0 mg/dL Normal 8.5-10.1 [facility] Comment on above: Performed By: #### B MP, CRP ####[facility] [address] [place], [place] [address]Dr. Maxi Esparza Chloride [Moles/Vol] 107 mmol/L Normal 98-107 [facility] Comment on above: Performed By: #### B MP, CRP ####[facility] [address] [address]Dr. Maxi Esparza CO2 [Moles/Vol] 29.8 mmol/L Normal 21.0-32.[address] [facility] Comment on above: Performed By: #### B MP, CRP ####[facility] [address] [address]Dr. Maxi Esparza Creatinine [Mass/Vol] 0.81 mg/dL Normal 0.55-1.02 [facility] Comment on above: Performed By: #### B MP, CRP ####[facility] [address] [address]Dr. Maxi Esparza EGFR-AF MALAGASY >60 Normal >=[address] [facility] Comment on above: Performed By: #### B MP, CRP ####[facility] [address] [id number]. Maxi Esparza EGFR-NON AF MALAGASY >60 Normal >=60 [facility] Comment on above: Performed By: #### B MP, CRP ####[facility] [address] [id number]. Maxi Esparza Glucose [Mass/Vol] 94 mg/dL Normal 74-106 [facility] Comment on above: Performed By: #### B MP, CRP ####[facility] [address] [address]Dr. Maxi Esparza Potassium [Moles/Vol] 3.4 mmol/L Critically low 3.5-5.1 [facility] Comment on above: Performed By: #### B MP, CRP ####[facility] [address] [address]Dr. Maxi Esparza Sodium [Moles/Vol] 141 mmol/L Normal 136-145 [facility] Comment on above: Performed By: #### B MP, CRP ####[facility] [address] [address]Dr. Maxi Esparza Urea nitrogen [Mass/Vol] 7.0 mg/dL Normal 7.0-18.0 [facility] Comment on above: Performed By: #### B MP, CRP ####[facility] [address] [address]Dr. Maxi Esparza Urea nitrogen/Creatinine [Mass ratio] 8.6 mg/mg Normal [facility] Comment on above: Performed By: #### B MP, CRP ####[facility] [address] [id number]. Maxi Esparza [facility] SED RATE 9 mm/hr Normal <=30 [facility] Comment on above: Performed By: #### S EDR #### [facility] [address] [address] [address] Maxi Esparza Cardiovascular Lab Reporton 05-25-2018 Cardiovascular Lab Report [facility] Patient Name: [facility] [place] MR #: [id number] Department of Physician: Jeovanny Siu M.D. Division of Service Date: 05/25/2018 Cardiology Birthdate: 1965 Adult Cardiovascular Room #: [facility] [address] [facility]. [place], [place] [address] Cardiovascular Laboratory Report FINAL IMPRESSIONS: 1. Angiographically [...] Follow up with Dr. Purcell in the [facility] in the next 1 to 2 months. [...] right common femoral artery was obtained. A 6-Icelandic 11 cm sheath was inserted without difficulty. Baseline angiography via the side arm of the sheath was performed. A 5-Icelandic Uni flush catheter was advanced in and [...] Pat/Marita Purcell M.D. Date Trans: 05/25/2018 11:48 A/mmo [id number] cc: Jv Boyd M.D. [address] [place] [address] [facility] Vital Signs Date Time Vital Sign Value Performing Clinician Facility 12-22-2023 15:31-0400 Body height 162.6 cm Corine Carr MD Work Phone: [facility] 12-22-2023 15:31-0400 Body mass index (BMI) [Ratio] 22.86 kg/m2 Corine Carr MD Work Phone: [facility] 12-22-2023 15:31-0400 Body temperature 98.49 [degF] Corine Carr MD Work Phone: [facility] 12-22-2023 15:31-0400 Body weight 60.42 kg Corine Carr MD Work Phone: [facility] 12-22-2023 15:31-0400 Diastolic blood pressure 68 mm[Hg] Corine Carr MD Work Phone: [facility] 12-22-2023 15:31-0400 Heart rate 65 /min Corine Carr MD Work Phone: [facility] 12-22-2023 15:31-0400 SaO2% (BldA) [Mass fraction] 95 % Corine Carr MD Work Phone: [facility] 12-22-2023 15:31-0400 Systolic blood pressure 118 mm[Hg] Corine Carr MD Work Phone: [facility] Encounters Encounter Date Encounter Type Care Provider Facility Start: 01-23-2024 End: 01-23-2024 Refill Corine Carr MD Work Phone: [facility] Comment on above: Subcapital fracture of hip, right, closed, initial encounter ([facility] Start: 01-18-2024 End: 01-19-2024 Refill Corine Carr MD Work Phone: [facility] Comment on above: Primary hypertension Start: 01-13-2024 End: 01-13-2024 Refill Corine Carr MD Work Phone: [facility] Comment on above: Subcapital fracture of hip, right, closed, initial encounter ([facility] Start: 12-23-2023 End: 12-23-2023 ambulatory [facility] Start: 12-22-2023 End: 12-22-2023 Office outpatient visit 25 minutes Corine Carr MD Work Phone: [facility] Comment on above: Fatigue due to exces sive exertion, initial encounter (Primary Dx); Chronic obstructive pulmonary disease, unspecified COPD type ([facility]) Start: 12-22-2023 End: 12-22-2023 ambulatory [facility] Start: 12-22-2023 End: 12-22-2023 Refill Corine Carr MD Work Phone: [facility] Comment on above: Subcapital fracture of hip, right, closed, initial encounter ([facility]) Start: 08-17-2023 End: 08-17-2023 ambulatory [facility] Start: 08-16-2023 End: 08-17-2023 Emergency department patient visit [facility] Start: 07-27-2023 End: 07-27-2023 ambulatory [facility] Start: 05-27-2023 Refill Mario Soares [facility] Comment on above: Subcapital fracture of hip, right, closed, initial encounter ([facility]) Start: 03-22-2023 Refill Corine Carr MD Work Phone: [facility] Comment on above: Subcapital fracture of hip, right, closed, initial encounter ([facility]) Start: 03-13-2023 Refill Corine Carr MD Work Phone: [facility] Comment on above: Primary hypertension ; ASCVD (arteriosclerotic cardiovascular disease); Subcapital fracture of hip, right, closed, initial encounter ([facility] Start: 07-12-2022 End: 07-12-[address] KARTHIK RENDON . Facility: Start: 06-02-2022 End: 06-03-2022 ambulatory OSMANY JOVANY Facility:[facility] Start: 01-28-2022 End: 01-29-2022 ambulatory MARICHUY CARR Facility:[facility] Start: 01-20-2022 ambulatory MARICHUY CARR Facili ty:[facility] Start: 11-04-2021 ambulatory MARICHUY CARR Facili ty:[facility] Start: 10-29-2021 End: 10-29-2021 ambulatory MARICHUY CARR Facility: Start: 05-25-2018 End: 05-26-2018 Patient encounter procedure [facility] Facility:[facility] Start: 05-15-2018 End: 05-16-2018 Patient encounter procedure DEFAULT PHYSICIAN Facility:[facility] Procedures Date Procedure Procedure Detail Performing Clinician Start: 09-07-2022 Adult depression screening assessment Corine Carr MD Work Phone: Start: 05-25-2018 ARTERY X-RAYS ARMS/LEGS [facility] Plan of Treatment Date Care Activity Detail Author Start: 12-21-2024 Adult BMI Screening Adult BMI Screen ing [facility] Start: 12-21-2024 Tobacco Screening Tobacco Screening [facility] Start: 01-07-2024 Tobacco Screening Tobacco Screening [facility] Start: 12-22-2023 End: 12-21-2024 CBC W Auto Differential panel - Blood CBC auto differential Lab Routine Fatigue due to excessive exertion, initial encounter Expected: 12/22/2023 (Approximate), Expires: 12/21/2024 uberVU Work Phone: Comment on above: Expected: 12/22/2023 (Approximate), Expires: 12/21/2024 Start: 12-22-2023 End: 12-21-2024 Comprehensive metabolic 2000 panel - Serum or Plasma Comprehensive metabolic panel Lab Routine Fatigue due to excessive exertion, initial encounter Expected: 12/22/2023 (Approximate), Expires: 12/21/2024 [facility] Comment on above: Expected: 12/22/2023 (Approximate), Expires: 12/21/2024 Start: 12-22-2023 End: 12-21-2024 Erythrocyte sedimentation rate Erythrocyte Sedimentation Rate (ESR) Lab Routine Fatigue due to excessive exertion, initial encounter Expected: 12/22/2023 (Approximate), Expires: 12/21/2024 [facility] Comment on above: Expected: 12/22/2023 (Approximate), Expires: 12/21/2024 Start: 12-22-2023 End: 12-21-2024 Hemoglobin A1c/Hemoglobin.total in Blood Hemoglobin A1c Lab Routine Fatigue due to excessive exertion, initial encounter Expected: 12/22/2023 (Approximate), Expires: 12/21/2024 [facility] Comment on above: Expected: 12/22/2023 (Approximate), Expires: 12/21/2024 Start: 12-22-2023 End: 12-21-2024 Lipid 1996 panel - Serum or Plasma Lipid profile Lab Routine Fatigue due to excessive exertion, initial encounter Expected: 12/22/2023 (Approximate), Expires: 12/21/2024 [facility] Comment on above: Expected: 12/22/2023 (Approximate), Expires: 12/21/2024 Start: 12-22-2023 End: 12-21-2024 Magnesium [Mass/volume] in Serum or Plasma Magnesium Lab Routine Fatigue due to excessive exertion, initial encounter Expected: 12/22/2023 (Approximate), Expires: 12/21/2024 [facility] Comment on above: Expected: 12/22/2023 (Approximate), Expires: 12/21/2024 Start: 12-22-2023 End: 12-21-2024 Phosphate [Mass/volume] in Serum or Plasma Phosphorus Lab Routine Fatigue due to excessive exertion, initial encounter Expected: 12/22/2023 (Approximate), Expires: 12/21/2024 [facility] Comment on above: Expected: 12/22/2023 (Approximate), Expires: 12/21/2024 Start: 12-22-2023 End: 12-21-2024 TSH with Reflex TSH with Reflex Lab Routine Fatigue due to excessive exertion, initial encounter Expected: 12/22/2023 (Approximate), Expires: 12/21/2024 [facility] Comment on above: Expected: 12/22/2023 (Approximate), Expires: 12/21/2024 Start: 12-22-2023 End: 12-21-2024 Vitamin D 25 hydroxy Vitamin D 25 hydroxy Lab Routine Fatigue due to excessive exertion, initial encounter Expected: 12/22/2023 (Approximate), Expires: 12/21/2024 [facility] Comment on above: Expected: 12/22/2023 (Approximate), Expires: 12/21/2024 Start: 12-22-2023 End: 12-21-2024 XR Chest PA and Lateral [facility] Comment on above: Expected: 12/22/2023 , Expires: 12/21/2024 Start: 11-24-2023 Adult BMI Screening Adult BMI Screen ing [facility] Start: 11-13-2023 Influenza vaccination Influenza Vacc ine [facility] Start: 09-08-2023 Depression Screening Depression Scre ening [facility] Start: 11-12-2022 Influenza vaccination Influenza Vacc ine [facility] Start: 07-17-2017 Administration of varicella zoster vaccine Zoster (Shingles) Vaccine (1 of 2) [facility] Start: 07-17-2012 Screening for malign ant neoplasm of colon Colonoscopy [facility] Start: 2007 Screening for malign ant neoplasm of breast Mammogram [facility] Start: 07-17-1988 Screening for malign ant neoplasm of cervix Pap Smear [facility] Start: 07-17-1986 DTaP,Tdap and Td Vac cines (1 - Tdap) DTaP,Tdap and Td Vaccines (1 - Tdap) [facility] Start: 1965 Tobacco Counseling Tobacco Counselin g [facility] End: 12-21-2024 Procalcitonin Procalcitonin Lab Routine Fatigue due to excessive exertion, initial encounter 1 Occurrences starting 12/22/2023 until 12/21/2024 [facility] Comment on above: 1 Occurrences starti ng 12/22/2023 until 12/21/2024 Payers Date Payer Category Payer Medicaid [employer] HMO [id number] 2022-Present [phone] [address] [place] [address] [id number] 2022 Medicaid HMO [employer] [id number] 1967 Unknown [id number] 1965 Unknown [id number] [id number] 1967 Unknown [id number] 2.16840.1.092942.3.579.2.593 1967 Unknown [id number] 2.16.840.1.578746.3.579.2.593 1967 Unknown [id number] 2.16.840.1.343045.3.579.2.593 1967 Unknown [id number] 2.16.840.1.677614.3.579.2.59 1967 Unknown [id number] 2.16.840.1.088412.3.579.2.593 1967 Unknown [id number] 2.16.840.1.988648.3.579.2.593 1967 Unknown [id number] 2.16.840.1.291303.3.579.2.1286 1967 Unknown [id number] 2.16.840.1.777368.3.579.2.1285 1967 Unknown [id number] 2.16.840.1.583053.3.579.2.1285 1967 Unknown [id number] 2.16.840.1.185924.3.579.2.1285 1967 Unknown [id number] 2.16.840.1.368931.3.579.2.1285 1967 Unknown [id number] 2.16.840.1.373828.3.579.2.1285 1967 Unknown [id number] [id number] 1957 Medicaid [id number] 1957 Self-pay [id number] 1957 Unknown [id number] Unknown Social History Date Type Detail Facility Start: 09-07-2022 End: 07-27-2023 Tobacco smoking status VTIS Smokes tobacco daily [facility] History of tobacco use Cigarette Smoker [facility] Start: 04-24-2020 End: 09-07-2022 Cigarettes smoked current (pack per day) - Reported 1 [facility] Start: 09-07-2022 End: 07-27-2023 Tobacco use and exposure Smokeless tobacco non-user [facility] Start: 01-06-2023 End: 12-22-2023 Alcohol intake Ex-drinker (finding) [facility] Start: 04-24-2020 End: 01-06-2023 Tobacco use panel [facility] How hard is it for y ou to pay for the very basics like food, housing, medical care, and heating Not hard at all [facility] Start: 1965 Sex Assigned At Not on file [facility] Start: 1965 Sex assigned at Female P [facility] Start: 11-11-2023 Gender identity Identifies as female gender (finding) [facility] Start: 11-11-2023 Sexual orientation Heterosexual (fin ying) [facility] Start: 10-17-2014 Sex Female (finding) [facility] Medical Equipment Procedure Code Equipment Code Equipment Origin al Text Equipment Identifier Dates Screw Bn 85mm 32 mm 7mm 8mm Cnn Slf Drl St Hx Hd Ft Ank - Sna - [id number] Start: 11-08-2022 Screw Bn 90mm 32 mm 7mm 8mm Cnn Slf Drl St Hx Hd Ft Ankl Sna - [id number] Start: 11-08-2022 Goals Date Patient Goal Desired Activity /State Personal health goal Comment on above: Formatting of this n ote might be different from the original. Evaluation of progress towards goal: Safe dc transition home with therapy follow up pending clinical course. Clinical Notes 12-22-2023 to 12-23-2023 Corine Carr MD - 12/22/2023 3:30 PM EDT Note Date & Type Note Facility 12-23-2023 Note XR CHEST 2 VWS Procedure: Chest x-ray performed Number of views:PA and lateral History:Chronic cough Comparison:11/06/2022 Findings: The heart and lungs show no acute findings, and the mediastinum and marla are grossly negative . Impression: No acute change. Finalized by Catia Fernández DO on 12/23/2023 2:58 PM [facility] 12-22-2023 History of Present illness Narrative Images from the original note were not included. [address] [place] [id number] Patient: Laury Iglesias Date of : 1965 Encounter Date: 12/22/2023 SUBJECTIVE: Chief Complaint: Chief Complaint Patient presents with Fatigue Irregular heart rate, light headed X 3 weeks Patient ID: Laury Iglesias is a 58 y.o. female. 58-year-old female with past medical history of COPD here today with symptoms of excessive fatigue ongoing for approximately 3 weeks. Last time she felt like this has a significant hypomagnesemia and anemia as well as other electrolyte dysfunction. Endorses significant fatigue with minimal activity feels like her heart starts to race with minimal activity, never has any heart racing or symptoms at rest. Has been using her Spiriva inhaler, does smoke but less than usual no recent viral illnesses her proton. Although does endorse being around sick contacts over nieces and nephews however things have remained in the sinuses. The following portions of the patient's history were reviewed and updated as appropriate: allergies, current medications, past family history, past medical history, past social history, past surgical history and problem list. PHYSICAL EXAMINATION: Vitals: 12/22/23 1531 BP: 118/68 BP Site: Left Arm BP Postition: Sitting Pulse: 65 Temp: 36.9 C (98.5 F) TempSrc: Oral SpO2: 95% Weight: 60.4 kg (133 lb 3.2 oz) Height: 162.6 cm (5' 4 ) Physical Exam Vitals reviewed. Constitutional: Appearance: She is well-developed. She is ill-appearing. HENT: Head: Normocephalic and atraumatic. Nose: Nose normal. Eyes: General: No scleral icterus. Extraocular Movements: Extraocular movements intact. Pupils: Pupils are equal, round, and reactive to light. Cardiovascular: Rate and Rhythm: Normal rate and regular rhythm. Heart sounds: Normal heart sounds. No murmur heard. Pulmonary: Effort: Pulmonary effort is normal. No respiratory distress. Breath sounds: Normal breath sounds. No wheezing or rales. Abdominal: General: Bowel sounds are normal. Palpations: Abdomen is soft. Tenderness: There is no abdominal tenderness. Musculoskeletal: Cervical back: Normal range of motion and neck supple. Right lower leg: No edema. Left lower leg: No edema. Lymphadenopathy: Cervical: No cervical adenopathy. Skin: Capillary Refill: Capillary refill takes less than 2 seconds. Neurological: Mental Status: She is oriented to person, place, and time. Cranial Nerves: No cranial nerve deficit. Motor: Weakness present. ASSESSMENT/PLAN: Marlene was seen today for fatigue. Diagnoses and all orders for this visit: Fatigue due to excessive exertion, initial encounter - CBC auto differential; Future - Comprehensive metabolic panel; Future - Lipid profile; Future - TSH with Reflex; Future - Vitamin D 25 hydroxy; Future - Magnesium; Future - Phosphorus; Future - Hemoglobin A1c; Future - Erythrocyte Sedimentation Rate (ESR); Future - Procalcitonin; Future - X-ray chest 2 views; Future Chronic obstructive pulmonary disease, unspecified COPD type ([facility]) - szorfgrgggj-okaoyctji-dgausccb (TRELEGY ELLIPTA) 100-62.5-25 mcg blister with device; Inhale 1 puff in the morning. Unremarkable pulmonary exam Will assess metabolic workup as above Zavell as procalcitonin chest x-ray to be completed. Follow-up as needed. CORINE CARR MD Family Medicine Physician [facility] Family Medicine / [facility] 12/22/23 This note was completed with voice recognition software. The document was reviewed for errors however some may still be present. Please do not hesitate to contact/Epic ms the author to verify any questions/concerns. documented in this encounter [facility] Evaluation note Diagnosis Primary hypertension Unspecified essential hypertension ASCVD (arteriosclerotic cardiovascular disease) Unspecified cardiovascular disease Subcapital fracture of hip, right, closed, initial encounter ([facility]) [facility] Diagnosis Subcapital fracture of hip, right, closed, initial encounter ([facility]) [facility] Diagnosis Subcapital fracture of hip, right, closed, initial encounter ([facility]) [facility] Diagnosis Subcapital fracture of hip, right, closed, initial encounter ([facility]) [facility] Diagnosis Fatigue due to excessive exertion, initial encounter- Primary Chronic obstructive pulmonary disease, unspecified COPD type ([facility]) [facility] Diagnosis Primary hypertension Unspecified essential hypertension [facility] on filedocumented in this encounter [facility] on filedocumented in this encounter [facility] System[facility]ructionsNot on filedocumented in this encounter [facility] on filedocumented in this encounter [facility] SystemInstructionsNot on filedocumented in this encounter [facility] Summary Purpose Family History No Family History Records FoundNo Family History Records FoundNo Family History Records FoundNo Family History Records Found Advance Directives Latest Code Status on File Code Status Date Activated Date Inactivated Comments Full Code 11/06/2022 5:47 PM 11/10/2022 4:33 PM Date Activated Date Inactivated Comments 11/06/2022 5:47 PM 11/10/2022 4:33 PM Date Activated Date Inactivated Comments 11/06/2022 5:47 PM 11/10/2022 4:33 PM Reason for Referral Specialty Diagnoses / Procedures Referred By Contlopez t Referred To Contact Diagnoses Chronic obstructive pulmonary disease, unspecified COPD type ([facility]) Corine Carr MD [address] [place] [address] Referral ID Status Reason Start Date Expiration Date V isits Requested Visits Authorized [id number] Pending Review 12/22/2023 12/21/2024 1 1 Additional Source Comments INFORMATION SOURCE (unrecogn ized section and content) DATE CREATED AUTHOR 06/12/2018 [facility] DATE CREATED AUTHOR AUTHOR'S ORGANIZ ATION 07/13/2022 [facility] DATE CREATED AUTHOR AUTHOR'S ORGANIZ ATION 12/25/2023 [facility] DATE CREATED AUTHOR AUTHOR'S ORGANIZ ATION 12/25/2023 [facility] Reason for Visit (unrecogniz ed section and content) Reason Comments Med Refill Reason Onset Date Comments Med Refill 03/22/2023 Reason Comments Fatigue Irregular heart rate , light headed X 3 weeks Reason Onset Date Comments Med Refill 01/13/2024 Reason Onset Date Comments Med Refill 01/23/2024 Care Teams (unrecognized sec tion and content) Director [employer] Relationship Specialty Start Date End Date Corine Carr MD [address] [place], [place] [id number] PCP - General Internal Medicine 09/07/22 [employer] Relationship Specialty Start Date End Date Corine Carr MD [address] [place], [place] [id number] PCP - General Internal Medicine 09/07/22 Director [employer] Relationship Specialty Start Date End Date Corine Carr MD [address] [place] [address] PCP - General Internal Medicine 09/07/22 Director [employer] Relationship Specialty Start Date End Date Corine Carr MD [address] [place] [address] PCP - General Internal Medicine 09/07/22 Director [employer] Relationship Specialty Start Date End Date Corine Carr MD [address] [place] [address] PCP - General Internal Medicine 09/07/22 FOR [...] BE BASED ON THE PRIMARY CLINICAL RECORDS. [facility]. provides no warranty or guarantee of the accuracy or completeness of information in this document.
--- NOTE | 2024-02-07 23:07 | ED.GENADUL1 ---
HPI HPI - General Adult General Chief complaint: Headache Stated complaint: headache Time Seen by Provider: 02/07/24 22:43 Source: patient Mode of arrival: walk-in Limitations: no limitations History of Present Illness HPI narrative: This 58-year-old female with a history of migraine headaches presents for evaluation of a migraine headache that started yesterday. She admits that she is under a lot of stress. She states that started yesterday in the back of her head and was waxing and waning but today it became more severe. She took some Tylenol earlier today and thought she started feeling better but then as the day progressed the headache became more severe and is associated with nausea and 1 episode of vomiting. This is a typical migraine for her. There is no thunderclap presentation of the headache. She has no focal weakness numbness or tingling. She is nauseated. She denies any chest pain or shortness of breath. She has not had a fever. The patient thinks that Phenergan has helped her migraine headaches in the past. She is allergic to NSAIDs. She also states that the steroids that they gave her made her very irritable so she could not sleep. Related Data Previous Rx's ?Medication ?Instructions ?Recorded hydrocodone 5 mg-acetaminophen 325 1 tab PO Q6H PRN pain 5 days #20 09/18/23 mg tablet tabs prednisone 10 mg tablet See Rx Instructions .Route 09/18/23 .COMPLEX #30 tabs Allergies Allergy/AdvReac Type Severity Reaction Status Date / Time Penicillins Allergy Mild Rash Verified 02/07/24 22:53 clindamycin AdvReac Nausea Verified 02/07/24 22:53 ibuprofen AdvReac Joint Pain Verified 02/07/24 22:53 Opioid HPI Opioid Management Most Recent Opioid Data: Last Pain Scale 9 11/20/23 23:16 11/20/23 Review of Systems ROS Status of ROS 10 or more systems reviewed and unremarkable except as noted in history and below PFSH PFSH Social History Little interest or pleasure in doing things: not at all Feeling down, depressed, or hopeless: not at all Exam Narrative Exam Narrative: Vital signs and Nursing Notes reviewed: Patient is afebrile with a normal pulse, blood pressure is elevated at 164/87, she is not hypoxic with pulse ox of 97% on room air General: Awake, alert, oriented, nontoxic but somewhat uncomfortable appearing middle-aged female, no respiratory distress, no active vomiting HEENT: Normocephalic atraumatic, mucous membranes are moist and pink, eyes are clear, normal conjunctiva, vision is grossly intact, mild photophobia noted Neck: Supple, no meningeal signs Chest: Lungs are clear to auscultation with good air entry, there is no wheezing rhonchi or rales appreciated no accessory muscle use, patient is speaking in complete sentences-no chest wall tenderness to palpation CVS: Regular rate and rhythm S1-S2, no murmurs rubs or gallops, pulses are brisk and equal bilaterally ABD: Soft, nondistended, nontender, no rebound guarding or rigidity, bowel sounds are normal, no pulsatile masses appreciated Extremities: Moving all extremities, no lower extremity tenderness or swelling noted, negative Homans' sign, pulses are brisk and equal bilaterally Skin: Normal in appearance without rash,pallor, petechiae or purpura Neuro: No focal deficits, speech is clear, senior medical technologist strength is intact, upper and lower extremity strength and sensation is intact, she is ambulatory with a steady gait Constitutional Vital Signs, click to edit/add: Last Vital Signs Temp 97.8 F 02/07/24 22:44 Pulse 77 02/07/24 22:44 Resp 18 02/07/24 22:44 BP 164/87 H 02/07/24 22:44 Pulse Ox 97 02/07/24 22:44 O2 Del Method Room Air 02/07/24 22:44 Course Vital Signs Vital signs: Vital Signs Temperature 97.8 F 02/07/24 22:44 Pulse Rate 77 02/07/24 22:44 Respiratory Rate 18 02/07/24 22:44 Blood Pressure 164/87 H 02/07/24 22:44 Pulse Oximetry 97 02/07/24 22:44 Oxygen Delivery Method Room Air 02/07/24 22:44 Temperature 97.8 F 02/07/24 22:44 Pulse Rate 77 02/07/24 22:44 Respiratory Rate 18 02/07/24 22:44 Blood Pressure 164/87 H 02/07/24 22:44 Pulse Oximetry 97 02/07/24 22:44 Oxygen Delivery Method Room Air 02/07/24 22:44 Medical Decision Making [facility] Narrative Medical decision making narrative: This 58-year-old female with a history of migraine headaches presents for evaluation of a migraine headache for the past 2 days associated with nausea, 1 episode of vomiting and photophobia. She has not had a fever. This is a typical migraine for her. She declined steroids and is allergic to NSAIDs. She was medicated with a dose of Phenergan and given an oral [place]. On reevaluation she states the pain is improved and she feels that she will be better if she can go home and get some sleep. She will be given 2 [place] to take overnight as needed for ongoing head pain. She was encouraged to rest, drink plenty of fluids and follow-up closely with her family physician. Discharge Plan Discharge Chief Complaint: Headache Clinical Impression: Migraine Patient Disposition: Home, Self-Care Time of Disposition Decision: 00:29 Condition: Good Prescriptions / Home Meds: No Action hydrocodone-acetaminophen 5-325 mg tablet 1 tab PO Q6H PRN (Reason: pain) 5 Days Qty: 20 0RF prednisone 10 mg tablet See Rx Instructions .ROUTE .COMPLEX Qty: 30 0RF Rx Instructions: 4 by mouth daily for three days then 3 by mouth daily for three days then 2 by mouth daily for three days then 1 by mouth daily for three days Print Language: Kazakh Instructions: Migraine Headache (ED) Referrals: Corine Alexandre ND [Primary Care Provider] - 1 week
[2024-02-07] MEDS: PROMETHAZINE HCL 25 MG/ML VIAL IM (23:21)
[2024-02-07] MEDS: HYDROCODONE/ACET 5-325 MG TABLET 1 TAB PO (23:22)
[2024-02-08] MEDS: HYDROCODONE/ACET 5-325 MG TABLET 2 TAB PO (00:37)
== END 2024-02-08 00:40 | disposition home or self-care (01) ==
PROVIDERS: Emergency Provider Emergency Medicine; PCP Student in an Organized Health Care Education/Training Program
DX: G43.909 Migraine, unspecified, not intractable, without status migrainosus (principal)
CPT/HCPCS: 96372; 99284; J2250

== ENCOUNTER 2024-02-20 21:45 | Emergency (ER) | payer OTHER, SELFPAY ==
[2024-02-20 21:49] VITALS: BP 168/94; PULSE 73; TEMP 36.6; O2SAT 96; BMI 22.3
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
[2024-02-20] MEDS: KETOROLAC TROMETHAMINE 60 MG/2 ML VIAL IM (22:48)
[2024-02-20] MEDS: METHOCARBAMOL 500 MG TABLET PO (22:48)
== END 2024-02-20 23:02 | disposition home or self-care (01) ==
PROVIDERS: Emergency Provider Emergency Medicine; PCP Student in an Organized Health Care Education/Training Program
DX: S46.812A Strain of other muscles, fascia and tendons at shoulder and upper arm level, left arm, initial encounter (principal); V49.49XA Driver injured in collision with other motor vehicles in traffic accident, initial encounter; M54.2 Cervicalgia
CPT/HCPCS: 96372; 99284; J1885

== ENCOUNTER 2024-04-24 23:02 | Emergency (ER) | payer OTHER, SELFPAY ==
[2024-04-24 23:09] VITALS: BP 154/89; PULSE 73; TEMP 36.9; O2SAT 98; BMI 23.3
--- OUTSIDE RECORDS SUMMARY | 2024-04-24 23:10 | XMS_ITS | CCD ---
Author Organization [facility] CliniSyla Care Team Providers Care Prison Classification Counselor Name Role Phone PHYSICIAN, DEFAULT Admitting Unavailable PHYSICIAN, DEFAULT Attending Unavailable SELF, REFERRED Primary Care Unavailable [place], EHAB A Admitting Unavailable [place], EHAB A Attending Unavailable JV BOYD Primary Care Unavailable JV BOYD Referring Unavailable [place] Procedure Practitioner Unavailab le [place], EHAB A [...] CARR Attending Unavailable CORINE CARR Referring Unavailable LILLY, MUHAMID M Primary Care Unavailable LILLY, MUHAMID M Primary Care Unavailable LISSA WALKER Attending Unavailabl e LILLY, MUHAMID M Attending Unavailable LILLY, MUHAMID M Referring Unavailable LILLY, MUHAMID M Primary Care Unavailable LILLY, MUHAMID M Referring Unavailable LILLY, MUHAMID M Primary Care Unavailable LILLY, MUHAMID M Referring Unavailable LILLY, MUHAMID M Primary Care Unavailable LILLY, MUHAMID M Primary Care Unavailable KAYA RODRIGUEZ Attending Unavailable LILLY, MUHAMID M Primary Care Unavailable PIERRE ANTHONY Attending Unavailable Allergies Allergy Classification Reported Allergen(s) Allergy Type Date of Onset Reaction(s) Facility (5 sources) Clindamycin; Translations: [CLINDAMYCIN] Drug Allergy 7 [facility] Repository (4 sources) Ibuprofen; Translations: [IBUPROFEN] Drug Allergy 9 [facility] (3 sources) Naproxen; Translations: [NAPROXEN] Drug Allergy 9 [facility] (5 sources) Penicillins; Translations: [PENICILLINS] Drug allergy (disorder) 9 [facility] Repository (1 source) Ibuprofen Drug Allergy 3 [facility] Repository (20 sources) Clindamycin Drug Allergy 8 [facility] (20 sources) Ibuprofen Drug Allergy 7 [facility] (20 sources) Naproxen Drug Allergy 2 [facility] (20 sources) Penicillins Propensity to adverse reactions to drug 7 [facility] Medications Current Medications Medication Drug Class(es) Dates Sig (Normalized) Sig (Original) acetaminophen 500 mg oral tablet (20 sources) Start: 11-06-2022 take 1 tablet by mouth every six hours as needed for pain acetaminophen (TYLENOL EXTRA STRENGTH) 500 mg tablet Take 1 tablet (500 mg total) by mouth every 6 (six) hours as needed for pain. 30 tablet 11/06/2022 Active [id number] 200 actuat albuterol 0.09 mg/actuat metered dose inhaler (20 sources) beta2-Adrenergic Agonist Start: 04-09-2024 take 2 puff(s) by inhalation every six hours as needed for wheezing albuterol (PROVENTIL HFA;VENTOLIN HFA) 90 mcg/actuation inhaler Indications: URI, acute Inhale 2 puffs every 6 (six) hours as needed for wheezing. 18 g 3 04/09/2024 Active Start: 11-06-2022 albuterol (PRO VENTIL,VENTOLIN) nebulizer solution 2.5 mg amoxicillin 875 mg / clavulanate 125 mg oral tablet (2 sources) Penicillin-class Antibacterial Start: 08-17-2023 End: 08-27-2023 take 1 tablet by mouth once in the morning amoxicillin-pot clavulanate (AUGMENTIN) 875-125 mg per tablet Indications: Dental infection Take 1 tablet by mouth in the morning and 1 tablet before bedtime. Do all this for 10 days. 20 tablet 08/17/2023 08/27/2023 Active aspirin 81 mg delayed release oral tablet (20 sources) Platelet Aggregation Inhibitor, Nonsteroidal Anti-inflammatory Drug Start: 09-07-2022 take 1 tablet by mouth in the morning aspirin 81 mg Indications: ASCVD (arteriosclerotic cardiovascular disease) Take 1 tablet (81 mg total) by mouth in the morning. 90 tablet 3 09/07/2022 Active atorvastatin 80 mg oral tablet (20 sources) HMG-CoA Reductase Inhibitor Start: 09-07-2022 End: 02-20-2024 take 1 tablet by mouth in the morning atorvastatin (LIPITOR) 80 mg tablet Indications: Primary hypertension , ASCVD (arteriosclerotic cardiovascular disease) take 1 tablet by mouth IN THE MORNING 60 tablet 2 03/15/2023 Active azithromycin 250 mg oral tablet (1 source) Macrolide Antimicrobial Start: 07-27-2023 End: 08-01-2023 take 1 tablet by mouth in the morning, then take 2 tablets by mouth once daily, then take 1 tablet by mouth once daily azithromycin (ZITHROMAX) 250 mg tablet Indications: Bronchitis Take 1 tablet (250 mg total) by mouth in the morning for 5 days. Take 2 tablets the first day, then 1 tablet daily for 4 days.. 6 tablet 07/27/2023 08/01/2023 Active calcium carbonate 1250 mg / cholecalciferol 200 unt oral tablet (20 sources) Vitamin D Start: 12-24-2022 take 2 tablets by mouth once in the morning calcium carbonate-vitamin D3 (OSCAL 500 + D) 500 mg(1,250mg) -200 units per tablet Indications: Vitamin D deficiency Take 2 tablets by mouth in the morning and 2 tablets in the evening. Take with meals. 180 tablet 12/24/2022 Active carvedilol 6.25 mg oral tablet (20 sources) alpha-Adrenergic Stephen, beta-Adrenergic Stephen Start: 01-17-2023 End: 01-19-2024 take 1 tablet by mouth once daily at bedtime carvediloL (COREG) 6.25 mg tablet Indications: Primary hypertension TAKE 1 TABLET BY MOUTH EVERY MORNING AND EVERY NIGHT AT BEDTIME 60 tablet 2 01/19/2024 Active celecoxib 100 mg oral capsule (20 sources) Nonsteroidal Anti-inflammatory Drug Start: 11-23-2022 take 1 capsule by mouth in the morning, then take 1 capsule by mouth at bedtime celecoxib (CeleBREX) 100 mg capsule Indications: Subcapital fracture of hip, right, closed, initial encounter ([facility]) Take 1 capsule (100 mg total) by mouth in the morning and 1 capsule (100 mg total) before bedtime. 60 capsule 11/23/2022 Active doxycycline hyclate 100 mg oral capsule (3 sources) Tetracycline-class Drug Start: 04-09-2024 End: 04-19-2024 take 1 capsule by mouth in the morning, then take 1 capsule by mouth at bedtime doxycycline (VIBRAMYCIN) 100 mg capsule Indications: URI, acute Take 1 capsule (100 mg total) by mouth in the morning and 1 capsule (100 mg total) before bedtime. Do all this for 10 days. 20 capsule 04/09/2024 04/19/2024 Active DULoxetine 30 mg delayed release oral capsule (20 sources) Serotonin and Norepinephrine Reuptake Inhibitor Start: 12-24-2022 End: 03-15-2023 take 1 capsule by mouth once daily in the morning DULoxetine (CYMBALTA) 30 mg capsule Indications: Subcapital fracture of hip, right, closed, initial encounter (CMS-HCC) take 1 capsule by mouth every morning 90 capsule 0 03/15/2023 Active 30 actuat fluticasone furoate 0.1 mg/actuat / umeclidinium 0.0625 mg/actuat / vilanterol 0.025 mg/actuat dry powder inhaler (20 sources) Anticholinergic, Corticosteroid, beta2-Adrenergic Agonist Start: 08-17-2023 End: 12-22-2023 take 1 puff(s) by inhalation in the morning fluticasone-umecli din-vilanter (TRELEGY ELLIPTA) 100-62.5-25 mcg blister with device Indications: Chronic obstructive pulmonary disease, unspecified COPD type ([facility]) Inhale 1 puff in the morning. 28 each 6 12/22/2023 Active 12 hr guaiFENesin 600 mg extended release oral tablet (1 source) Start: 07-27-2023 End: 08-06-2023 take 1 tablet by mouth once guaiFENesin (MUCINEX) 600 mg tablet extended release 12hr Indications: Bronchitis Take 1 tablet (600 mg total) by mouth every 12 (twelve) hours for 10 days. 20 tablet 07/27/2023 08/06/2023 Active lidocaine 0.05 mg/mg medicated patch (1 source) Antiarrhythmic, Amide Local Anesthetic Start: 04-15-2024 apply 1 dose transdermal route once daily, then apply 1 dose transdermal route every twelve hours lidocaine (LIDODERM) 5 % Place 1 patch on the skin daily. Remove & Discard patch within 12 hours or as directed by 30 patch 04/15/2024 Active magnesium oxide 400 mg oral tablet (20 sources) take 1 tablet by mouth in the morning magnesium oxide (MAGOX) 400 mg tablet Take 1 tablet (400 mg total) by mouth in the morning. Active ondansetron 4 mg disintegrating oral tablet (2 sources) Serotonin-3 Receptor Antagonist Start: 04-11-2024 take 1 tablet by mouth every eight hours as needed for nausea and vomiting ondansetron ODT (ZOFRAN ODT) 4 mg disintegrating tablet Dissolve 1 tablet (4 mg total) on tongue every 8 (eight) hours as needed for nausea or vomiting. 30 tablet 04/11/2024 Active phenazopyridine hydrochloride 200 mg oral tablet (1 source) Start: 04-18-2024 take 1 tablet by mouth three times daily as needed for muscle spasms phenazopyridine (PYRIDIUM) 200 mg tablet Indications: Dysuria Take 1 tablet (200 mg total) by mouth 3 (three) times a day as needed for bladder spasms. 20 tablet 04/18/2024 Active Start: 04-18-2024 take 1 tablet by antony three times daily as needed for muscle spasms phenazopyridine (PYRIDIUM) 200 mg tablet Indications: Dysuria Take 1 tablet (200 mg total) by mouth 3 (three) times a day as needed for bladder spasms. 20 tablet 04/18/2024 Active potassium chloride 1.33 meq/ml oral solution (20 sources) potassium chlori de (KAYCIEL) 20 mEq/15 mL solution Take 7.5 mL (10 mEq total) by mouth in the morning. Active tiotropium 0.018 mg inhalation powder (20 sources) Anticholinergic Start: 08-11-2023 End: 03-10-2024 take 1 capsule by inhalation once daily tiotropium (SPIRIVA WITH HANDIHALER) 18 mcg per inhalation capsule Indications: Chronic obstructive pulmonary disease, unspecified COPD type (CMS-HCC) Place 1 capsule into inhaler and inhale once daily. 30 capsule 2 03/10/2024 Active Start: 03-03-2023 End: 08-11-2023 take 1 capsule by inhalation once daily SPIRIVA WITH HANDIHALER 18 mcg per inhalation capsule Indications: Chronic obstructive pulmonary disease, unspecified COPD type ([facility]) inhale THE CONTENTS OF ONE CAPSULE IN THE HANDIHALER once daily 30 capsule 2 03/03/2023 08/11/2023 Discontinued (Reorder) traMADol hydrochloride 50 mg oral tablet (20 sources) Opioid Agonist Start: 04-16-2024 take 1 tablet by mouth every six hours as needed for pain traMADoL (ULTRAM) 50 mg tablet Indications: Subcapital fracture of hip, right, closed, initial encounter ([facility]) Take 1 tablet (50 mg total) by mouth every 6 (six) hours as needed for pain. 30 tablet 04/16/2024 Active Start: 12-09-2023 End: 04-13-2024 take 1 tablet by mouth every six hours as needed for pain traMADoL (ULTRAM) 50 mg tablet Indications: Subcapital fracture of hip, right, closed, initial encounter ([facility]) Take 1 tablet (50 mg total) by mouth every 6 (six) hours as needed for pain. 30 tablet 03/14/2024 04/13/2024 Discontinued (Reorder) Start: 12-24-2022 End: 11-11-2023 take 1 tablet by mouth every six hours as needed for pain traMADoL (ULTRAM) 50 mg tablet Indications: Subcapital fracture of hip, right, closed, initial encounter ([facility]) Take 1 tablet (50 mg total) by mouth every 6 (six) hours as needed for pain. 28 tablet 11/11/2023 Active Completed/Discontinued Medications Medication Drug Class(es) Dates Sig (Normalized) Sig (Original) 120 actuat budesonide 0.16 mg/actuat / formoterol fumarate 0.0048 mg/actuat / glycopyrrolate 0.009 mg/actuat metered dose inhaler (7 sources) Corticosteroid, beta2-Adrenergic Agonist Start: 12-24-2022 End: 08-11-2023 take 2 puff(s) by inhalation in the morning budesonide-glycopy r-formoterol (BREZTRI AEROSPHERE) 160-9-4.8 mcg/actuation HFA aerosol inhaler Indications: Chronic bronchitis, unspecified chronic bronchitis type ([facility]) 2 puffs, in the morning and in the evening. 10.7 g 5 12/24/2022 08/11/2023 Discontinued (Therapy completed) penicillin v potassium 500 mg oral tablet (1 source) Start: 08-16-2023 End: 08-17-2023 penicillin v potassium (VEETIDS) 500 mg tablet Take 1 tablet (500 mg total) by mouth in the morning and 1 tablet (500 mg total) at noon and 1 tablet (500 mg total) in the evening and 1 tablet (500 mg total) before bedtime. Do all this for 7 days. 28 tablet 08/16/2023 08/17/2023 Discontinued varenicline (20 sources) Partial Cholinergic Nicotinic Agonist Start: 11-23-2022 End: 04-09-2024 varenicline (CHANTIX STARTING MONTH BOX) 0.5 mg (11)- 1 mg (42) tablet Indications: Tobacco use Take 0.5 mg one daily on days 1-3 and 0.5 mg twice daily on days 4-7. Then 1 mg twice daily for a total of 12 weeks. 53 tablet 11/23/2022 04/09/2024 Discontinued Start: 11-23-2022 varenicline (C HANTIX STARTING MONTH BOX) 0.5 mg (11)- 1 mg (42) tablet Indications: Tobacco use Take 0.5 mg one daily on days 1-3 and 0.5 mg twice daily on days 4-7. Then 1 mg twice daily for a total of 12 weeks. 53 tablet 11/23/2022 Active Start: 11-23-2022 varenicline (C HANTIX STARTING MONTH BOX) 0.5 mg (11)- 1 mg (42) tablet Indications: Tobacco use Take 0.5 mg one daily on days 1-3 and 0.5 mg twice daily on days 4-7. Then 1 mg twice daily for a total of 12 weeks. 53 tablet 0 11/23/2022 Active Problems Active Problems Problem Classification Problem Date Documented Da te Episodic/Chronic Administrative/social admission (1 source) Encounter for issue of repeat prescription; Translations: [ENC FOR ISSUE REPEAT PRESCRIPTION] Onset: 3 Episodic Aortic; peripheral; and visceral artery aneurysms (20 sources) Aneurysm of iliac artery; Translations: [Aneurysm of iliac artery] Onset: 9 11-07-2022 Chronic Cardiac dysrhythmias (20 sources) Multiple premature ventricular complexes; Translations: [Ventricular premature depolarization] Onset: 3 11-07-2022 Chronic Chronic obstructive pulmonary disease and bronchiectasis (20 sources) Chronic obstructive lung disease; Translations: [Chronic obstructive pulmonary disease, unspecified] Onset: 3 11-06-2022 Chronic Conditions associated with dizziness or vertigo (1 source) Dizziness and giddiness; Translations: [DIZZINESS AND GIDDINESS] Onset: 9 Episodic Congestive heart failure; nonhypertensive (20 sources) Chronic systolic heart failure; Translations: [Chronic systolic (congestive) heart failure] Onset: 3 11-07-2022 Chronic Coronary atherosclerosis and other heart disease (4 sources) Atherosclerotic heart disease of [place] coronary artery without angina pectoris; Translations: [Arteriosclerotic vascular disease] Onset: 3 02-19-2024 Chronic Disorders of lipid metabolism (20 sources) Hyperlipidemia; Translations: [Other hyperlipidemia] Onset: 3 11-07-2022 Chronic Essential hypertension (20 sources) Essential (primary) hypertension; Translations: [Essential hypertension] Onset: 7 11-07-2022 Chronic Genitourinary symptoms and ill-defined conditions (3 sources) Personal history of urinary (tract) infections; Translations: [Dysuria] Onset: 3 04-18-2024 Episodic Nausea and vomiting (2 sources) Nausea with vomiting, unspecified; Translations: [Vomiting] Onset: 5 Episodic Other aftercare (2 sources) assisted (current) use of aspirin; Translations: [OXIDE FURNACE TENDER (CURRENT) USE OF ASPIRIN] Onset: 9 Episodic Other connective tissue disease (1 source) Pain in leg, unspecified; Translations: [PAIN IN LEG, UNSPECIFIED] Onset: 9 Episodic Other connective tissue disease (1 source) Other specified soft tissue disorders; Translations: [OTHER SPECIFIED SOFT TISSUE DISORDERS] Onset: 9 Episodic Other gastrointestinal disorders (1 source) Diarrhea, unspecified; Translations: [Diarrhea, unspecified] Onset: 5 Episodic Other gastrointestinal disorders (1 source) Diarrhea Onset: 5 Episodic Other injuries and conditions due to external causes (2 sources) Fatigue; Translations: [Exhaustion due to excessive exertion, initial encounter] Onset: 4 12-22-2023 Episodic Other lower respiratory disease (2 sources) Shortness of breath; Translations: [SHORTNESS OF BREATH] Onset: 9 Episodic Other non-traumatic joint disorders (1 source) Shoulder pain Onset: 5 Episodic Other screening for suspected conditions (not mental disorders or infectious disease) (4 sources) Abnormal result of other cardiovascular function study; Translations: [ABNORMAL RESULT OF OTHER CARDIOVASCULAR FUNCTION STUDY] Onset: 9 Episodic Other upper respiratory disease (1 source) Other seasonal allergic rhinitis; Translations: [OTHER SEASONAL ALLERGIC RHINITIS] Onset: 3 Chronic Other upper respiratory infections (2 sources) Acute upper respiratory infection, unspecified; Translations: [Acute upper respiratory infection] Onset: 3 04-09-2024 Episodic Residual codes; unclassified (1 source) Altered mental status, unspecified; Translations: [Altered mental status, unspecified] Onset: 5 Episodic Spondylosis; intervertebral disc disorders; other back problems (1 source) Dorsalgia, unspecified; Translations: [Dorsalgia, unspecified] Onset: 5 Episodic Substance-related disorders (2 sources) Nicotine dependence, [...] Problem Date Documented Date Episodic/Chronic Cardiac dysrhythmias (20 sources) Palpitations; Translations: [Palpitations] Onset: 02-10-2017 08-11-2021 Episodic Chronic obstructive pulmonary disease and bronchiectasis (2 sources) Bronchitis, not specified as acute or chronic; Translations: [Bronchitis] Onset: 07-27-2023 07-27-2023 Episodic Disorders of teeth and jaw (4 sources) Periapical abscess without sinus; Translations: [Jaw pain] Onset: 08-16-2023 08-17-2023 Episodic E Codes: Fall (20 sources) Fall in home; Translations: [Unspecified fall, initial encounter] Onset: 11-06-2022 11-06-2022 Episodic E Codes: Natural/environment (1 source) Exposure to other specified factors, initial encounter; Translations: [EXPOSURE OTHER SPEC FACTORS INITIAL] Onset: 10-30-2021 Episodic Fracture of neck of femur (hip) (20 sources) Closed subcapital fracture of right femur; Translations: [Unspecified intracapsular fracture of right femur, initial encounter for closed fracture] Onset: 11-06-2022 05-27-2023 Episodic Mood disorders (20 sources) Mood disorders Onset: 09-07-2022 09-07-2022 Nonspecific chest pain (20 sources) Chest pain, unspecified; Translations: [Other chest pain] Onset: 02-10-2017 Episodic Other aftercare (1 source) Other senior living (current) drug therapy; Translations: [OTH SNF CURRENT DRUG THERAPY] Onset: 02-01-2022 Episodic Other injuries and conditions due to external causes (1 source) Exhaustion due to excessive exertion, initial encounter; Translations: [Exhaustion due to excessive exertion, initial encounter] Onset: 12-22-2023 Episodic Other lower respiratory disease (1 source) [...] JEF] Onset: 01-28-2022 Episodic Residual codes; unclassified (20 sources) H/O: atrial fibrillation; Translations: [Other specified postprocedural states] Onset: 11-07-2022 11-07-2022 Episodic Sprains and strains (1 source) Sprain of ligaments of lumbar spine, initial encounter; Translations: [SPRAIN LIGAMENTS LUMBAR SPN INITIAL] Onset: 10-30-2021 Episodic Unclassified (1 source) COUGH, UNSPECIFIED; Translations: [COUGH, UNSPECIFIED] Onset: 07-12-2022 Unclassified (1 source) LOW BACK PAIN, UNSPECIFIED; Translations: [LOW BACK PAIN, UNSPECIFIED] Onset: 10-29-2021 Unclassified (20 sources) Onset: 07-01-2021 07-01-2021 Results Test Name Value Interpretation Reference Range Facility CBC AND AUTO DIFFon 04-15-19 25 ABSOLUTE BASOPHIL 0.1 X10E9/L Normal 0.0-0.2 [facility] Comment on above: Performed By: #### C BCA, CMP, 35903-8, 76596-4, 86137-9, 2777- 1, TSHR, HA1C, 28889-6, 73666-7 #### [facility] ([id number]) [address], [address] [place] [address] ABSOLUTE NEUTROPHIL 6.5 X10E9/L Normal 1.5-6.6 [facility] Comment on above: Performed By: #### C BCA, CMP, 48041-1, 81488-0, 08456-8, 2777- 1, TSHR, HA1C, 51013-4, 50440-6 #### [facility] ([id number]) [address], [address] [place] [address] Basophils/100 WBC (Bld) 0.9 % Normal [facility] Comment on above: Performed By: #### C BCA, CMP, 24981-4, 87673-5, 36297-4, 2777- 1, TSHR, HA1C, 47599-9, 82413-7 #### [facility] ([id number]) [address], [address] [place] [address] Eosinophils (Bld) [#/Vol] 0.0 10*3/uL Normal 0.0-0.4 [facility] Comment on above: Performed By: #### C BCA, CMP, 81178-6, 36999-5, 81573-3, 2777- 1, TSHR, HA1C, 35398-0, 84223-5 #### [facility] ([id number]) [address], [address] [place] [address] Eosinophils/100 WBC (Bld) 0.2 % Normal [facility] Comment on above: Performed By: #### C BCA, CMP, 91544-4, 50795-5, 70932-6, 2777- 1, TSHR, HA1C, 03358-9, 39171-9 #### [facility] ([id number]) [address], [address] [place] [address] Erythrocyte distribution width (RBC) [Ratio] 13.5 % Normal 11.5-15.0 [facility] Comment on above: Performed By: #### C BCA, CMP, 96756-3, 06114-0, 97713-9, 2777- 1, TSHR, HA1C, 59742-7, 99660-9 #### [facility] ([id number]) [address], [address] [place] [address] Hematocrit (Bld) [Volume fraction] 41.4 % Normal 35-47 [facility] Comment on above: Performed By: #### C BCA, CMP, 90137-3, 02694-5, 12428-2, 2777- 1, TSHR, HA1C, 39654-4, 56402-4 #### [facility] ([id number]) [address] [place] [address] Hemoglobin (Bld) [Mass/Vol] 14.4 g/dL Normal 11.7-15.5 [facility] Comment on above: Performed By: #### C BCA, CMP, 69789-5, 34343-0, 24037-4, 2777- 1, TSHR, HA1C, 09389-5, 76253-0 #### [facility] ([id number]) [address] [address] [place] [address] Lymphocytes (Bld) [#/Vol] 2.7 10*3/uL Normal 1.0-3.5 [facility] Comment on above: Performed By: #### C BCA, CMP, 06727-2, 27004-2, 23941-9, 2777- 1, TSHR, HA1C, 38402-1, 54373-5 #### [facility] ([id number]) [address] [address] [place] [address] Lymphocytes/100 WBC (Bld) 27.6 % Normal [facility] Comment on above: Performed By: #### C BCA, CMP, 27749-9, 40719-8, 78740-9, 2777- 1, TSHR, HA1C, 51732-1, 59111-3 #### [facility] ([id number]) [address], [address] [place] [address] MCH (RBC) [Entitic mass] 32.4 pg Normal 27-34 [facility] Comment on above: Performed By: #### C BCA, CMP, 33107-6, 63467-9, 22249-0, 2777- 1, TSHR, HA1C, 35454-4, 13374-4 #### [facility] ([id number]) [address], [address] [place] [address] MCHC (RBC) [Mass/Vol] 34.8 g/dL Normal 32-36 [facility] Comment on above: Performed By: #### C BCA, CMP, 57426-2, 92414-4, 82576-5, 2777- 1, TSHR, HA1C, 63994-7, 98284-8 #### [facility] ([id number]) [address], [address] [place] [address] MCV (RBC) [Entitic vol] 93 fL Normal 80-100 [facility] Comment on above: Performed By: #### C BCA, CMP, 99110-7, 91688-6, 82125-6, 2777- 1, TSHR, HA1C, 79910-9, 12301-2 #### [facility] ([id number]) [address], [address] [place] [address] Monocytes (Bld) [#/Vol] 0.4 10*3/uL Normal 0-0.9 [facility] Comment on above: Performed By: #### C BCA, CMP, 81298-2, 09609-1, 85224-3, 2777- 1, TSHR, HA1C, 50089-3, 16726-7 #### [facility] ([id number]) [address], [address] [place] [address] Monocytes/100 WBC (Bld) 3.8 % Normal [facility] Comment on above: Performed By: #### C BCA, CMP, 41945-5, 23487-8, 40527-7, 2777- 1, TSHR, HA1C, 95217-8, 26755-0 #### [facility] ([id number]) [address], [address] [place] [address] Neutrophils/100 WBC (Bld) 67.5 % Normal [facility] Comment on above: Performed By: #### C BCA, CMP, 54597-7, 45294-8, 00702-0, 2777- 1, TSHR, HA1C, 06935-8, 02898-3 #### [facility] ([id number]) [address], [address] [place] [address] Platelet mean volume (Bld) [Entitic vol] 8.7 fL Normal 7-12 [facility] Comment on above: Performed By: #### C BCA, CMP, 18037-3, 75719-0, 14118-7, 2777- 1, TSHR, HA1C, 56487-8, 13533-7 #### [facility] ([id number]) [address], [address] [place] [address] Platelets (Bld) [#/Vol] 282 10*3/uL Normal 150-450 [facility] Comment on above: Performed By: #### C BCA, CMP, 67214-0, 51356-3, 70812-7, 2777- 1, TSHR, HA1C, 58563-8, 93585-6 #### [facility] ([id number]) [address], [address] [place] [address] RBC COUNT 4.45 X10E12/L Normal 3.80-5.20 [facility] Comment on above: Performed By: #### C BCA, CMP, 54118-1, 69300-8, 54542-9, 2777- 1, TSHR, HA1C, 44394-1, 15817-6 #### [facility] ([id number]) [address], [address] [place] [address] WBC (Bld) [#/Vol] 9.7 10*3/uL Normal 4.0-11.0 [facility] Comment on above: Performed By: #### C BCA, CMP, 19230-9, 81332-6, 30101-5, 2777- 1, TSHR, HA1C, 52961-8, 16025-5 #### [facility] ([id number]) [address], [address] [place] [address] COMPREHENSIVE METABOLIC PANE Rogelio 04-15-2024 Albumin [Mass/Vol] 4.4 g/dL Normal 3.2-5.3 [facility] Comment on above: Performed By: #### C BCA, CMP, 86165-9, 40051-6, 95120-1, 2777- 1, TSHR, HA1C, 02748-5, 49925-2 #### [facility] ([id number]) [address] [facility], [address] [place] [address] ALP [Catalytic activity/Vol] 92 U/L Normal 39-130 [facility] Comment on above: Performed By: #### C BCA, CMP, 65594-9, 60271-9, 07873-6, 2777- 1, TSHR, HA1C, 12170-5, 78102-7 #### [facility] ([id number]) [address] [facility], [address] [place] [address] ALT [Catalytic activity/Vol] 20 U/L Normal 0-31 [facility] Comment on above: Performed By: #### C BCA, CMP, 28856-0, 61127-7, 86150-1, 2777- 1, TSHR, HA1C, 72508-6, 86423-0 #### [facility] ([id number]) [address], [address] [place] [address] Anion gap [Moles/Vol] 11 mmol/L Normal 5-15 [facility] Comment on above: Performed By: #### C BCA, CMP, 00158-3, 11288-5, 16748-5, 2777- 1, TSHR, HA1C, 07608-6, 72315-2 #### [facility] ([id number]) [address], [address] [place] [address] AST [Catalytic activity/Vol] 23 U/L Normal 0-41 [facility] Comment on above: Performed By: #### C BCA, CMP, 48581-9, 74710-9, 45353-3, 2777- 1, TSHR, HA1C, 43292-6, 58002-0 #### [facility] ([id number]) [address], [address] [place] [address] Bilirubin [Mass/Vol] 1.4 mg/dL High 0.3-1.2 [facility] Comment on above: Performed By: #### C BCA, CMP, 25227-4, 73870-3, 91603-2, 2777- 1, TSHR, HA1C, 92891-1, 50452-6 #### [facility] ([id number]) [address], [address] [place] [address] Calcium [Mass/Vol] 9.1 mg/dL Normal 8.5-10.5 [facility] Comment on above: Performed By: #### C BCA, CMP, 30111-4, 48113-0, 24701-5, 2777- 1, TSHR, HA1C, 20209-7, 05278-4 #### [facility] ([id number]) [address], [address] [place] [address] Chloride [Moles/Vol] 103 mmol/L Normal 98-109 [facility] Comment on above: Performed By: #### C BCA, CMP, 27049-4, 24264-7, 10651-4, 2777- 1, TSHR, HA1C, 43196-6, 78497-1 #### [facility] ([id number]) [address], [address] [place] [address] CO2 [Moles/Vol] 23 mmol/L Normal 22-32 [facility] Comment on above: Performed By: #### C BCA, CMP, 82162-1, 09573-6, 60059-1, 2777- 1, TSHR, HA1C, 03538-5, 62220-2 #### [facility] ([id number]) [address], [address] [place] [address] Creatinine [Mass/Vol] 0.89 mg/dL Normal 0.40-1.00 [facility] Comment on above: Result Comment: METH OD TRACEABLE TO IDMS STANDARD Performed By: #### C BCA, CMP, 38228-4, 44102-6, 64831-2, 2777-1, TSHR, HA1C, 38260-1, 59711-3 #### [facility] ([id number]) [address], [address] [place] [address] GFR/1.73 sq M.predicted among non-blacks MDRD (S/P/Bld) [Vol rate/Area] 76 mL/min/{1.73_m2} Normal >59 [facility] Comment on above: Result Comment: Reported eGFR is based on the CKD-EPI 2020 equation that does not use a race coefficient. Performed By: #### C BCA, CMP, 94897-8, 05036-8, 89056-1, 2777-1, TSHR, HA1C, 84320-1, 36959-8 #### [facility] ([id number]) [address], [address] [place] [address] Glucose [Mass/Vol] 154 mg/dL High 65-99 [facility] Comment on above: Performed By: #### C BCA, CMP, 54708-4, 73056-9, 38952-9, 2777- 1, TSHR, HA1C, 65385-4, 86694-2 #### [facility] ([id number]) [address], [address] [place] [address] Potassium [Moles/Vol] 4.0 mmol/L Normal 3.5-5.0 [facility] Comment on above: Performed By: #### C BCA, CMP, 82852-1, 13305-9, 43158-8, 2777- 1, TSHR, HA1C, 26837-2, 58943-8 #### [facility] ([id number]) [address], [address] [place] [address] Protein [Mass/Vol] 7.5 g/dL Normal 6.0-8.0 [facility] Comment on above: Performed By: #### C BCA, CMP, 20495-4, 93372-8, 81519-6, 2777- 1, TSHR, HA1C, 34820-7, 79263-1 #### [facility] ([id number]) [address], [address] [place] [address] Sodium [Moles/Vol] 137 mmol/L Normal 134-146 [facility] Comment on above: Performed By: #### C BCA, CMP, 80816-8, 13153-7, 79452-2, 2777- 1, TSHR, HA1C, 84201-8, 27496-9 #### [facility] ([id number]) [address], [address] [place] [address] Urea nitrogen [Mass/Vol] 15 mg/dL Normal 5-23 [facility] Comment on above: Performed By: #### C BCA, CMP, 58053-4, 04577-2, 47297-0, 2777- 1, TSHR, HA1C, 44432-3, 65045-7 #### [facility] ([id number]) [address] [place] [address], [address] [place] [address] Fibrin D-dimer DDU (PPP) [Ma ss/Vol]on 04-15-2024 D DIMER <150 Normal <255 [facility] Comment on above: Result Comment: Results <255 ng/mL DDU: The presence of a VTE can safely be excluded with a negative D-Dimer result and Wells score. A negative result doesn't exclude the possibility of DIC. The test be repeated along with other diagnostic tests if the patient's symptoms persist or worsen. [email or web address] Performed By: #### C BCA, CMP, 27731-6, 65677-7, 45109-9, 2777-1, TSHR, HA1C, 52609-5, 17333-8 #### [facility] ([id number]) [address], [address] [place] [address] MAGNESIUMon 04-15-2024 Magnesium [Mass/Vol] 1.8 mg/dL Normal 1.8-2.6 [facility] Comment on above: Performed By: #### C BCA, CMP, 92688-9, 67777-1, 38163-1, 2777- 1, TSHR, HA1C, 73712-5, 75392-3 #### [facility] ([id number]) [address], [address] [place] [address] Troponin I.cardiac High sens itivity method [Mass/Vol]on 04-15-2024 TROPONIN I, HIGH SENSITIVITY 5 ng/L Normal <16 [facility] Comment on above: Performed By: #### C BCA, CMP, 34837-4, 32982-2, 74719-9, 2777- 1, TSHR, HA1C, 90745-4, 55210-8 #### [facility] ([id number]) [address], [address] [place] [address] XR CHEST 1 VWon 04-15-2024 XR CHEST 1 VW XR CHEST 1 VW CHEST 1 VIEW HISTORY: Shortness of breath COMPARISON: 12/22/2023 FINDINGS: No focal airspace disease, pulmonary edema, pleural effusions, or pneumothorax. Normal cardiomediastinal silhouette. IMPRESSION: No acute cardiopulmonary disease. Finalized by Catrachito Garcia MD on 04/15/2024 9:[address] [facility] SARS/FLU A+B/RSV by NAAT/Mol ecularon 04-11-2024 SARS/FLU A+B/RSV by NAAT/Molecular FLU A PCR Negative (qualifier value) FLU B PCR Negative (qualifier value) RSV by PCR Negative (qualifier value) SARS CoV 2 Not detected (qualifier value) NOTE The Xpert Xpress SARS-CoV-2/Flu/RSV Plus test is a rapid, multiplexed real-time RT-PCR test intended for the simultaneous qualitative detection and differentiation of SARS-CoV-2, influenza A, influenza B and respiratory syncytial virus (RSV) viral RNA from individuals suspected of respiratory viral infection consistent with COVID-19 by their healthcare provider. This test has not been validated in asymptomatic patients. The Xpert Xpress SARS-CoV-2 test is intended for use by qualified and trained operators who are performing tests using either GeneXRaytheon DX or GeneXpert Infinity systems and is limited to laboratories that meet the CLIA requirements to perform high and moderate complexity tests. The Xpert Xpress SARS-CoV-2/Flu/RSV Plus is only for use under the Food and Drug Administration's Emergency Use Authorization. Results are for the simultaneous detection and differentiation of SARS-CoV-2, influenza A, influenza B and RSV nucleic acids in clinical specimens. SARS-CoV-2, influenza A, influenza B and RSV RNA identified by this test are generally detectable in upper respiratory samples during the acute phase of infection. Positive results are indicative of the presence of the identified virus, but do not rule out bacterial infection or co-infection with other pathogens not detected by this test. Clinical correlation with patient history and other diagnostic information is necessary to determine patient infection status. The agent detected may not be the definite cause of disease. Negative results do not preclude SARS-CoV-2, influenza A, influenza B and RSV infection and should not be used as the sole basis for treatment or other patient management decisions. Negative results must be combined with clinical observations, patient history and epidemiological information. An Invalid result may occur with specimen-associated inhibition unable to be resolved with specimen repeat. Fact Sheet for Healthcare Providers: https://www.[employer] [facility].gov/me stella/204051/download Fact Sheet for Patients: https://www.fda.gov/ga stella/342085/download Normal [facility] Comment on above: Performed By: #### C BCA, CMP, 28136-9, 64139-6, 81477-2, 2777- 1, TSHR, HA1C, 52479-1, 91305-0 #### [facility] ([id number]) [address], [address] [place] [address] CBC AND AUTO DIFFon 12-23-19 24 ABSOLUTE BASOPHIL 0.1 X10E9/L Normal 0.0-0.2 [facility] Comment on above: Performed By: #### C BCA, CMP, 69708-9, 41726-4, 92401-7, 2777- 1, TSHR, HA1C, 35570-6, 33160-5 #### [facility] ([id number]) [address], [address] [place] [address] ABSOLUTE NEUTROPHIL 5.1 X10E9/L Normal 1.5-6.6 [facility] Comment on above: Performed By: #### C BCA, CMP, 13803-5, 45254-4, 81750-9, 2777- 1, TSHR, HA1C, 09461-4, 13894-8 #### [facility] ([id number]) [address], [address] [place] [address] Basophils/100 WBC (Bld) 0.6 % Normal [facility] Comment on above: Performed By: #### C BCA, CMP, 61851-9, 97177-9, 00423-4, 2777- 1, TSHR, HA1C, 61814-5, 94173-2 #### [facility] ([id number]) [address], [address] [place] [address] Eosinophils (Bld) [#/Vol] 0.2 10*3/uL Normal 0.0-0.4 [facility] Comment on above: Performed By: #### C BCA, CMP, 61084-1, 40637-8, 70014-8, 2777- 1, TSHR, HA1C, 02415-8, 76226-5 #### [facility] ([id number]) [address] [place] [address] Eosinophils/100 WBC (Bld) 1.7 % Normal [facility] Comment on above: Performed By: #### C BCA, CMP, 28084-4, 51509-9, 14641-4, 2777- 1, TSHR, HA1C, 83410-9, 19422-6 #### [facility] ([id number]) [address] [place] [address] Erythrocyte distribution width (RBC) [Ratio] 13.6 % Normal 11.5-15.0 [facility] Comment on above: Performed By: #### C BCA, CMP, 40914-3, 46711-3, 67190-4, 2777- 1, TSHR, HA1C, 52401-6, 53625-2 #### [facility] ([id number]) [address], [address] [place] [address] Hematocrit (Bld) [Volume fraction] 41.4 % Normal 35-47 [facility] Comment on above: Performed By: #### C BCA, CMP, 18244-9, 61525-7, 49884-5, 2777- 1, TSHR, HA1C, 98273-8, 72063-2 #### [facility] ([id number]) [address], [address] [place] [address] Hemoglobin (Bld) [Mass/Vol] 14.0 g/dL Normal 11.7-15.5 [facility] Comment on above: Performed By: #### C BCA, CMP, 04907-6, 90478-1, 64720-0, 2777- 1, TSHR, HA1C, 12036-1, 66491-3 #### [facility] ([id number]) [address], [address] [place] [address] Lymphocytes (Bld) [#/Vol] 2.9 10*3/uL Normal 1.0-3.5 [facility] Comment on above: Performed By: #### C BCA, CMP, 55694-8, 59864-9, 00905-7, 2777- 1, TSHR, HA1C, 91211-2, 64542-0 #### [facility] ([id number]) [address], [address] [place] [address] Lymphocytes/100 WBC (Bld) 32.8 % Normal [facility] Comment on above: Performed By: #### C BCA, CMP, 05464-9, 45198-9, 18767-6, 2777- 1, TSHR, HA1C, 32292-5, 55713-5 #### [facility] ([id number]) [address], [address] [place] [address] MCH (RBC) [Entitic mass] 32.2 pg Normal 27-34 [facility] Comment on above: Performed By: #### C BCA, CMP, 93964-4, 92229-3, 00822-8, 2777- 1, TSHR, HA1C, 76638-5, 02428-6 #### [facility] ([id number]) [address], [address] [place] [address] MCHC (RBC) [Mass/Vol] 33.9 g/dL Normal 32-36 [facility] Comment on above: Performed By: #### C BCA, CMP, 95977-3, 97867-5, 25437-2, 2777- 1, TSHR, HA1C, 93494-5, 13898-6 #### [facility] ([id number]) [address], [address] [place] [address] MCV (RBC) [Entitic vol] 95 fL Normal 80-100 [facility] Comment on above: Performed By: #### C BCA, CMP, 93934-6, 52197-6, 74437-4, 2777- 1, TSHR, HA1C, 56120-2, 31200-1 #### [facility] ([id number]) [address], [address] [place] [address] Monocytes (Bld) [#/Vol] 0.6 10*3/uL Normal 0-0.9 [facility] Comment on above: Performed By: #### C BCA, CMP, 89588-7, 10430-7, 82101-9, 2777- 1, TSHR, HA1C, 61610-2, 83664-8 #### [facility] ([id number]) [address], [address] [place] [address] Monocytes/100 WBC (Bld) 7.0 % Normal [facility] Comment on above: Performed By: #### C BCA, CMP, 29182-6, 45148-3, 19649-1, 2777- 1, TSHR, HA1C, 68987-7, 52922-9 #### [facility] ([id number]) [address], [address] [place] [address] Neutrophils/100 WBC (Bld) 57.9 % Normal [facility] Comment on above: Performed By: #### C BCA, CMP, 63858-4, 41342-3, 68057-4, 2777- 1, TSHR, HA1C, 79385-5, 71694-0 #### [facility] ([id number]) [address], [address] [place] [address] Platelet mean volume (Bld) [Entitic vol] 10.1 fL Normal 7-12 [facility] Comment on above: Performed By: #### C BCA, CMP, 97232-5, 21589-8, 91125-2, 2777- 1, TSHR, HA1C, 44195-3, 50723-8 #### [facility] ([id number]) [address], [address] [place] [address] Platelets (Bld) [#/Vol] 254 10*3/uL Normal 150-450 [facility] Comment on above: Performed By: #### C BCA, CMP, 72269-1, 12843-0, 82532-9, 2777- 1, TSHR, HA1C, 26003-2, 28349-2 #### [facility] ([id number]) [address], [address] [place] [address] RBC COUNT 4.37 X10E12/L Normal 3.80-5.20 [facility] Comment on above: Performed By: #### C BCA, CMP, 83069-5, 19802-4, 12091-7, 2777- 1, TSHR, HA1C, 01498-2, 87673-7 #### [facility] ([id number]) [address] [address] [place] [address] WBC (Bld) [#/Vol] 8.7 10*3/uL Normal 4.0-11.0 [facility] Comment on above: Performed By: #### C BCA, CMP, 19597-6, 10431-3, 27098-6, 2777- 1, TSHR, HA1C, 00849-7, 79141-3 #### [facility] ([id number]) [address], [address] [place] [address] COMPREHENSIVE METABOLIC PANE Rogelio 12-23-2023 Albumin [Mass/Vol] 4.1 g/dL Normal 3.2-5.3 [facility] Comment on above: Performed By: #### C BCA, CMP, 03524-2, 26333-9, 04837-8, 2777- 1, TSHR, HA1C, 57505-5, 02969-8 #### [facility] ([id number]) [address], [address] [place] [address] ALP [Catalytic activity/Vol] 116 U/L Normal 39-130 [facility] Comment on above: Performed By: #### C BCA, CMP, 67011-9, 05103-1, 22136-5, 2777- 1, TSHR, HA1C, 90689-3, 78931-8 #### [facility] ([id number]) [address], [address] [place] [address] ALT [Catalytic activity/Vol] 14 U/L Normal 0-31 [facility] Comment on above: Performed By: #### C BCA, CMP, 47741-8, 74071-0, 91272-0, 2777- 1, TSHR, HA1C, 59047-7, 11837-3 #### [facility] ([id number]) [address], [address] [place] [address] Anion gap [Moles/Vol] 9 mmol/L Normal 5-15 [facility] Comment on above: Performed By: #### C BCA, CMP, 54992-7, 83240-2, 23558-8, 2777- 1, TSHR, HA1C, 37154-4, 77018-1 #### [facility] ([id number]) [address], [address] [place] [address] AST [Catalytic activity/Vol] 17 U/L Normal 0-41 [facility] Comment on above: Performed By: #### C BCA, CMP, 36796-3, 79278-9, 44505-0, 2777- 1, TSHR, HA1C, 66273-7, 03867-7 #### [facility] ([id number]) [address], [address] [place] [address] Bilirubin [Mass/Vol] 0.9 mg/dL Normal 0.3-1.2 [facility] Comment on above: Performed By: #### C BCA, CMP, 48282-5, 26802-8, 76756-7, 2777- 1, TSHR, HA1C, 67550-6, 72789-1 #### [facility] ([id number]) [address], [address] [place] [address] Calcium [Mass/Vol] 9.7 mg/dL Normal 8.5-10.5 [facility] Comment on above: Performed By: #### C BCA, CMP, 48208-4, 39876-6, 79262-1, 2777- 1, TSHR, HA1C, 64220-0, 16085-8 #### [facility] ([id number]) [address], [address] [place] [address] Chloride [Moles/Vol] 106 mmol/L Normal 98-109 [facility] Comment on above: Performed By: #### C BCA, CMP, 34961-9, 93408-5, 03543-8, 2777- 1, TSHR, HA1C, 58915-5, 30610-3 #### [facility] ([id number]) [address], [address] [place] [address] CO2 [Moles/Vol] 29 mmol/L Normal 22-32 [facility] Comment on above: Performed By: #### C BCA, CMP, 37647-3, 58927-8, 01467-1, 2777- 1, TSHR, HA1C, 65724-6, 54479-7 #### [facility] ([id number]) [address], [address] [place] [address] Creatinine [Mass/Vol] 0.69 mg/dL Normal 0.40-1.00 [facility] Comment on above: Result Comment: METH OD TRACEABLE TO IDMS STANDARD Performed By: #### C BCA, CMP, 86842-3, 26601-8, 33869-8, 2777-1, TSHR, HA1C, 69521-0, 09081-1 #### [facility] ([id number]) [address], [address] [place] [address] eGFR (CKD-EPI) NON-RACE DEPENDENT >90 Normal >59 [facility] Comment on above: Result Comment: Reported eGFR is based on the CKD-EPI 2020 equation that does not use a race coefficient. Performed By: #### C BCA, CMP, 26698-7, 58826-6, 42099-3, 2777-1, TSHR, HA1C, 74743-8, 17312-6 #### [facility] ([id number]) [address], [address] [place] [address] Glucose [Mass/Vol] 96 mg/dL Normal 65-99 [facility] Comment on above: Performed By: #### C BCA, CMP, 29340-8, 00954-1, 50819-0, 2777- 1, TSHR, HA1C, 98342-0, 34130-1 #### [facility] ([id number]) [address], [address] [place] [address] Potassium [Moles/Vol] 4.3 mmol/L Normal 3.5-5.0 [facility] Comment on above: Performed By: #### C BCA, CMP, 92161-6, 05033-1, 85031-8, 2777- 1, TSHR, HA1C, 94830-1, 46925-9 #### [facility] ([id number]) [address], [address] [place] [address] Protein [Mass/Vol] 6.8 g/dL Normal 6.0-8.0 [facility] Comment on above: Performed By: #### C BCA, CMP, 20618-1, 04971-8, 71462-3, 2777- 1, TSHR, HA1C, 59692-5, 94585-2 #### [facility] ([id number]) [address], [address] [place] [address] Sodium [Moles/Vol] 144 mmol/L Normal 134-146 [facility] Comment on above: Performed By: #### C BCA, CMP, 45724-0, 63668-1, 55975-2, 2777- 1, TSHR, HA1C, 08813-6, 99954-5 #### [facility] ([id number]) [address], [address] [place] [address] Urea nitrogen [Mass/Vol] 8 mg/dL Normal 5-23 [facility] Comment on above: Performed By: #### C BCA, CMP, 88745-6, 52655-1, 79239-4, 2777- 1, TSHR, HA1C, 77922-8, 80627-8 #### [facility] ([id number]) [address], [address] [place] [address] ESR Photometric method (Bld) [Velocity]on 12-23-2023 ESR, ERYTHROCYTE SEDIMENTATION RATE 2 mm/h Normal 0-30 [facility] Comment on above: Performed By: #### C BCA, CMP, 50520-8, 61961-6, 15072-1, 2777- 1, TSHR, HA1C, 50184-2, 60009-1 #### [facility] ([id number]) [address], [address] [place] [address] HGB A1C (GLYCO-HGB)on 2023 Glucose [Mass/Vol] 123 mg/dL Normal [facility] Comment on above: Performed By: #### C BCA, CMP, 38749-0, 30769-3, 52871-2, 2777- 1, TSHR, HA1C, 66502-6, 34627-7 #### [facility] ([id number]) [address] [place] [address], [address] [place] [address] HbA1c (Bld) [Mass fraction] 5.9 % High 4.4-5.6 [facility] Comment on above: Result Comment: NOTE ADA Guidelines Result HgbA1c Normal : less than 5.7 % Prediabetes : 5.7 % to 6.4 % Diabetes : > 6.4 % Use with caution in patients with abnormal hemoglobin variants as the half-life of red blood cells and in vivo glycation rates are affected. Performed By: #### C KP, COLTEN, 69298-8, 99756-7, 49470-8, 2777-1, TSHR, HA1C, 22032-4, 30920-3 #### [facility] ([id number]) [address] [place] [address], [address] [place] [address] Lipid 1996 panelon 4 Cholesterol [Mass/Vol] 105 mg/dL Low 150-200 [facility] Comment on above: Performed By: #### C KP, COLTEN, 47795-7, 45044-7, 06760-8, 2777- 1, TSHR, HA1C, 66876-2, 08781-8 #### [facility] ([id number]) [address] [place] [address], [address] [place] [address] Cholesterol in HDL [Mass/Vol] 39 mg/dL Low >39 [facility] Comment on above: Result Comment: HDL <40 mg/dL - High Risk HDL > or = 40mg/dL- Desirable HDL >60 mg/dL - Negative Risk Performed By: #### C KP, CMP, 60789-0, 18575-7, 30164-3, 2777-1, TSHR, HA1C, 60779-5, 52766-4 #### [facility] ([id number]) [address], [address] [place] [address] Cholesterol in LDL [Mass/Vol] 45 mg/dL Normal <130 [facility] Comment on above: Result Comment: LDL <100 mg/dL - Desirable LDL >160 mg/dL - High Risk Performed By: #### C BCA, CMP, 21020-8, 18976-9, 76848-1, 2777-1, TSHR, HA1C, 16232-5, 13532-0 #### [facility] ([id number]) [address], [address] [place] [address] Cholesterol in VLDL [Mass/Vol] 21 mg/dL Normal 0-30 [facility] Comment on above: Performed By: #### C BCA, CMP, 51077-7, 92144-2, 96110-5, 2777- 1, TSHR, HA1C, 59677-6, 20539-2 #### [facility] ([id number]) [address], [address] [place] [address] CHOLESTEROL:HDL 2.7 Normal 1.0-5.0 [facility] Comment on above: Performed By: #### C BCA, CMP, 06112-2, 02188-7, 65401-9, 2777- 1, TSHR, HA1C, 36152-3, 50306-5 #### [facility] ([id number]) [address], [address] [place] [address] Triglyceride [Mass/Vol] 104 mg/dL Normal 27-150 [facility] Comment on above: Performed By: #### C BCA, CMP, 94671-0, 85296-6, 40977-5, 2777- 1, TSHR, HA1C, 20441-0, 33917-4 #### [facility] ([id number]) [address], [address] [place] [address] MAGNESIUMon 12-23-2023 Magnesium [Mass/Vol] 1.6 mg/dL Low 1.8-2.6 [facility] Comment on above: Performed By: #### C KP, CMP, 74177-5, 63630-9, 19825-8, 2777- 1, TSHR, HA1C, 86668-3, 90610-1 #### [facility] ([id number]) [address], [address] [place] [address] PHOSPHORUSon 12-23-2023 Phosphate [Mass/Vol] 3.6 mg/dL Normal 2.4-4.9 [facility] Comment on above: Performed By: #### C KP, CMP, 58635-3, 00403-2, 49868-1, 2777- 1, TSHR, HA1C, 61883-9, 83258-4 #### [facility] ([id number]) [address], [address] [place] [address] Procalcitonin [place] [Mass/Vol]o n 12-23-2023 PROCALCITONIN <0.05 Normal <0.05 [facility] Comment on above: Result Comment: NOTE <0.50 ng/mL - Low risk of severe sepsis and/or septic shock. <2.00 ng/mL - Recommend retesting within 6-24 hours. >2.00 ng/mL - High risk of sepsis and/or septic shock. Performed By: #### C BCA, CMP, 18493-8, 01861-3, 44777-5, 2777-1, TSHR, HA1C, 39024-6, 15927-7 #### [facility] ([id number]) [address], [address] [place] [address] TSH WITH REFLEXon 12-23-2023 TSH 0.83 uIU/mL Normal 0.49-4.67 [facility] Comment on above: Performed By: #### C BCA, CMP, 64890-5, 35941-1, 85528-8, 2777- 1, TSHR, HA1C, 34983-6, 35628-8 #### [facility] ([id number]) [address] [place] [address], [address] [place] [address] Vitamin D+Metabolites [Mass/ Vol]on 12-23-2023 VITAMIN D 25 HYD TOT 24.3 ng/mL Low 30-100 [facility] Comment on above: Result Comment: Vitamin D status 25 [place] Vitamin D Deficiency <20 ng/mL Insufficiency 20-29 ng/mL Sufficiency 30-100 ng/mL Toxicity >100 ng/mL NOTE: A pediatric reference range has not been established by the road machinery inspector of this kit. The [place] [employer] recommends a Vitamin D level of = or >20ng/mL in infants and children. Performed By: #### C BCA, CMP, 81017-2, 49982-4, 94607-1, 2777-1, TSHR, HA1C, 42942-6, 16833-7 #### [facility] ([id number]) [address] [place] [address], [address] [place] [address] AMYLASEon 06-03-2022 Amylase [Catalytic activity/Vol] 82 U/L Normal 25-115 [facility] Comment on above: Performed By: #### L IVER, CMADM, LIPA, LAUREL, BMP #### [facility] [address] [place] [address] Dr. Maxi Esparza CARDIAC DONNA 3-6on 3 CK [Catalytic activity/Vol] 69 U/L Normal 26-192 [facility] Comment on above: Performed By: #### C MREP #### [facility] [address] [place] [address] Dr. Maxi Esparza CK.MB [Mass/Vol] 1.29 ng/mL Normal <=3.60 [facility] Comment on above: Performed By: #### C MREP #### [facility] [address] [address] [address] Maxi Esparza HSTROP 10.5 pg/mL Normal 4.0-51.3 [facility] Comment on above: Result Comment: CUT- OFF POINTS HAVE BEEN ESTABLISHED BASED ON THE FOURTH UNIVERSAL DEFINITIONS OF MYOCARDIAL INFARCTION. THE UPPER REFERENCE LIMIT (URL) OF TROPONIN, DEFINED THE 99TH PERCENTILE OF cTnI DISTRIBUTION IN A REFERENCE POPULATION, HAS BEEN CONFIRMED THE DECISION THRESHOLD FOR [place] DIAGNOSIS. Performed By: #### C MREP #### [facility] [address] [address] [address] Maxi Esparza CARDIAC DONNA ADMITon 023 CK [Catalytic activity/Vol] 75 U/L Normal 26-192 [facility] Comment on above: Performed By: #### L IVER, CMADM, LIPA, LAUREL, BMP ####[facility] [address] [address]Dr. Maxi Esparza CK.MB [Mass/Vol] 1.55 ng/mL Normal <=3.60 [facility] Comment on above: Performed By: #### L IVER, CMADM, LIPA, LAUREL, BMP ####[facility] [address] [id number]. Maxi Esparza HSTROP 10.2 pg/mL Normal 4.0-51.3 [facility] Comment on above: Result Comment: CUT- OFF POINTS HAVE BEEN ESTABLISHED BASED ON THE FOURTH UNIVERSAL DEFINITIONS OF MYOCARDIAL INFARCTION. THE UPPER REFERENCE LIMIT (URL) OF TROPONIN, DEFINED THE 99TH PERCENTILE OF cTnI DISTRIBUTION IN A REFERENCE POPULATION, HAS BEEN CONFIRMED THE DECISION THRESHOLD FOR [place] DIAGNOSIS. Performed By: #### L IVER, CMADM, LIPA, LAUREL, BMP ####[facility] [address] [id number] Esparza BENTLEY 34 ng/mL Normal 9-82 [facility] Comment on above: Performed By: #### L IVER, CMADM, LIPA, LAUREL, BMP ####[facility] [address] [place], [place] [address]ReDr. Maxi Esparza CBC AUTO DIFFon 06-03-2022 BASO # 0.1 103/ul Normal 0.0-0.1 [facility] Comment on above: Performed By: #### C BC #### [facility] [address] [address] [address] Maxi Esparza Basophils/100 WBC (Bld) 0.8 % Normal 0.2-2.0 [facility] Comment on above: Performed By: #### C BC #### [facility] [address] [address] [address] Maxi Esparza EO # 0.1 103/ul Normal 0.0-0.7 [facility] Comment on above: Performed By: #### C BC #### [facility] [address] [address] [address] Maxi Esparza Eosinophils/100 WBC (Bld) 0.9 % Normal 0.9-7.0 [facility] Comment on above: Performed By: #### C BC #### [facility] [address] [address] [address] Maxi Esparza Erythrocyte distribution width (RBC) [Ratio] 12.8 % Normal 11.0-15.0 [facility] Comment on above: Performed By: #### C BC #### [facility] [address] [address] [address] Maxi Esparza Hematocrit (Bld) [Volume fraction] 44.2 % Normal 36.0-48.0 [facility] Comment on above: Performed By: #### C BC #### [facility] [address] [address] [address] Maxi Esparza Hemoglobin (Bld) [Mass/Vol] 15.3 g/dL Normal 12.0-16.0 [facility] Comment on above: Performed By: #### C BC #### [facility] [address] [address] [address] Maxi Esparza IG # 0.02 10e3/ul Normal 0.00-0.03 [facility] Comment on above: Performed By: #### C BC #### [facility] [address] [place] [address] Dr. Maxi Esparza IG % 0.2 % Normal 0.0-0.5 [facility] Comment on above: Performed By: #### C BC #### [facility] [address] [place] [address] Dr. Maxi Esparza LYMPH # 3.3 103/ul Normal 1.2-3.8 [facility] Comment on above: Performed By: #### C BC #### [facility] [address] [place] [address] Dr. Maxi Esparza Lymphocytes/100 WBC (Bld) 31.8 % Normal 20.5-60.0 [facility] Comment on above: Performed By: #### C BC #### [facility] [address] [place] [address] Dr. Maxi Esparza MANUAL DIFF REQ NO Normal [facility] Comment on above: Performed By: #### C BC #### [facility] [address] [place] [address] Dr. Maxi Esparza MCH (RBC) [Entitic mass] 31.6 pg Normal 26.7-34.0 [facility] Comment on above: Performed By: #### C BC #### [facility] [address] [place] [address] Dr. Maxi Esparza MCHC (RBC) [Mass/Vol] 34.6 g/dL Normal 29.9-35.2 [facility] Comment on above: Performed By: #### C BC #### [facility] [address] [place] [address] Dr. Maxi Esparza MCV (RBC) [Entitic vol] 91.3 fL Normal 81.0-99.0 [facility] Comment on above: Performed By: #### C BC #### [facility] [address] [place] [address] Dr. Maxi Esparza MONO # 0.6 103/ul Normal 0.3-0.8 [facility] Comment on above: Performed By: #### C BC #### [facility] [address] [place] [address] Dr. Maxi Esparza Monocytes/100 WBC (Bld) 5.7 % Normal 1.7-12.0 [facility] Comment on above: Performed By: #### C BC #### [facility] [address] [place] [address] Dr. Maxi Esparza NEUT # 6.3 103/ul Normal 1.4-6.5 [facility] Comment on above: Performed By: #### C BC #### [facility] [address] [place] [address] Dr. Maxi Esparza Neutrophils/100 WBC (Bld) 60.6 % Normal 43.0-75.0 [facility] Comment on above: Performed By: #### C BC #### [facility] [address] [place] [address] Dr. Maxi Esparza Platelet mean volume (Bld) [Entitic vol] 10.2 fL Normal 9.5-13.5 [facility] Comment on above: Performed By: #### C BC #### [facility] [address] [place] [address] Dr. Maxi Esparza PLT 332 103/ul Normal 150-450 [facility] Comment on above: Performed By: #### C BC #### [facility] [address] [place] [address] Dr. Maxi Esparza RBC 4.84 106/ul Normal 4.20-5.40 [facility] Comment on above: Performed By: #### C BC #### [facility] [address] [place] [address] Dr. Maxi Esparza WBC 10.4 103/ul Normal 4.0-11.0 [facility] Comment on above: Performed By: #### C BC #### [facility] [address] [place] [address] ABD/PELV W CONon [...] JENNIFER AARON Date: 2022-06-03 00:27 Normal [facility] D-DIMERon 06-03-2022 D-DIMER 0.28 mg/L FEU Normal <=0.59 [facility] Comment on above: Performed By: #### D DIM #### [facility] [address] [place] [address] Dr. Maxi Esparza D-DIMER COMMENTS SEE BELOW Normal [facility] Comment on above: Result Comment: Incr eases [...] hospitalization. Performed By: #### D DIM #### [facility] [address] [place] [address] Dr. Maxi Esparza LIPASEon 06-03-2022 Lipase [Catalytic activity/Vol] 131.0 U/L Normal 73.0-393.0 [facility] Comment on above: Performed By: #### L IVER, CMADM, LIPA, LAUREL, BMP ####[facility] [address] [address]Dr. Maxi Esparza LIVER PROFILEon 06-03-2022 Albumin [Mass/Vol] 3.9 g/dL Normal 3.4-5.[address] [facility] Comment on above: Performed By: #### L IVER, CMADM, LIPA, LAUREL, BMP #### [facility] [address] [address] [address] Maxi Esparza Albumin/Globulin [Mass ratio] 1.1 {ratio} Normal [facility] Comment on above: Performed By: #### L IVER, CMADM, LIPA, LAUREL, BMP #### [facility] [address] [address] [address] Maxi Esparza ALP [Catalytic activity/Vol] 150 U/L Critically high 46-116 [facility] Comment on above: Performed By: #### L IVER, CMADM, LIPA, LAUREL, BMP #### [facility] [address] [address] [address] Maxi Esparza ALT [Catalytic activity/Vol] 23 U/L Normal 14-59 [facility] Comment on above: Performed By: #### L IVER, CMADM, LIPA, LAUREL, BMP #### [facility] [address] [address] [address] Mxai Esparza AST [Catalytic activity/Vol] 19 U/L Normal 15-37 [facility] Comment on above: Performed By: #### L IVER, CMADM, LIPA, LAUREL, BMP #### [facility] [address] [address] [address] Maxi Esparza BILI, CONJUGATED 0.1 mg/dL Normal 0.0-0.2 [facility] Comment on above: Performed By: #### L IVER, CMADM, LIPA, LAUREL, BMP #### [facility] [address] [place] [address] Dr. Maxi Esparza Bilirubin [Mass/Vol] 0.5 mg/dL Normal 0.2-1.0 [facility] Comment on above: Performed By: #### L IVER, CMADM, LIPA, LAUREL, BMP #### [facility] [address] [place] [address] Dr. Maxi Esparza Globulin (S) [Mass/Vol] 3.6 g/dL Normal [facility] Comment on above: Performed By: #### L IVER, CMADM, LIPA, LAUREL, BMP #### [facility] [address] [place] [address] Dr. Maxi Esparza Protein [Mass/Vol] 7.5 g/dL Normal 6.4-8.2 [facility] Comment on above: Performed By: #### L IVER, CMADM, LIPA, LAUREL, BMP #### [facility] [address] [place] [address] Dr. Maxi Esparza PROF CHEM 8 (BAS METB)on Anion gap [Moles/Vol] 12.7 mmol/L Normal [facility] Comment on above: Performed By: #### L IVER, CMADM, LIPA, LAUREL, BMP #### [facility] [address] [place] [address] Dr. Maxi Esparza Calcium [Mass/Vol] 8.9 mg/dL Normal 8.5-10.1 [facility] Comment on above: Performed By: #### L IVER, CMADM, LIPA, LAUREL, BMP #### [facility] [address] [place] [address] Dr. Maxi Esparza Chloride [Moles/Vol] 97 mmol/L Critically low 98-107 [facility] Comment on above: Performed By: #### L IVER, CMADM, LIPA, LAUREL, BMP #### [facility] [address] [place] [address] Dr. Maxi Esparza CO2 [Moles/Vol] 27.8 mmol/L Normal 21.0-32.0 [facility] Comment on above: Performed By: #### L IVER, CMADM, LIPA, LAUREL, BMP #### [facility] [address] [address] [address] Maxi Esparza Creatinine [Mass/Vol] 1.02 mg/dL Normal 0.55-1.02 [facility] Comment on above: Performed By: #### L IVER, CMADM, LIPA, LAUREL, BMP #### [facility] [address] [place] [address] Dr. Maxi Esparza EGFR-AF [place]ER >60 Normal >=60 [facility] Comment on above: Performed By: #### L IVER, CMADM, LIPA, LAUREL, BMP #### [facility] [address] [place] [address] Dr. Maxi Esparza EGFR-NON AF [place] 56 mL/min/1.73m2 Critically low >=60 [facility] Comment on above: Performed By: #### L IVER, CMADM, LIPA, LAUREL, BMP #### [facility] [address] [place] [address] Dr. Maxi Esparza Glucose [Mass/Vol] 127 mg/dL Critically high 74-106 [facility] Comment on above: Performed By: #### L IVER, CMADM, LIPA, LAUREL, BMP #### [facility] [address] [place] [address] Dr. Maxi Esparza Potassium [Moles/Vol] 3.5 mmol/L Normal 3.5-5.1 [facility] Comment on above: Performed By: #### L IVER, CMADM, LIPA, LAUREL, BMP #### [facility] [address] [place] [address] Dr. Maxi Esparza Sodium [Moles/Vol] 134 mmol/L Critically low 136-145 [facility] Comment on above: Performed By: #### L IVER, CMADM, LIPA, LAUREL, BMP #### [facility] [address] [place] [address] Dr. Maxi Esparza Urea nitrogen [Mass/Vol] 14.0 mg/dL Normal 7.0-18.0 [facility] Comment on above: Performed By: #### L IVER, CMADM, LIPA, LAUREL, BMP #### [facility] [address] [address] [address] Maxi Esparza Urea nitrogen/Creatinine [Mass ratio] 13.7 mg/mg Normal [facility] Comment on above: Performed By: #### L IVER, CMADM, LIPA, LAUREL, BMP #### [facility] [address] [address] [address] Maxi Esparza XR CHEST 2 Von [...] MARV DEY Date: 2022-06-02 22:58 Normal [facility] CBC AUTO DIFFon 01-29-2022 BASO # 0.1 103/ul Normal 0.0-0.1 [facility] Comment on above: Performed By: #### C BC #### [facility] [address] [place] [address] Dr. Maxi Esparza Basophils/100 WBC (Bld) 0.7 % Normal 0.2-2.0 [facility] Comment on above: Performed By: #### C BC #### [facility] [address] [place] [address] Dr. Maxi Esparza EO # 0.1 103/ul Normal 0.0-0.7 [facility] Comment on above: Performed By: #### C BC #### [facility] [address] [place] [address] Dr. Maxi Esparza Eosinophils/100 WBC (Bld) 0.5 % Critically low 0.9-7.0 [facility] Comment on above: Performed By: #### C BC #### [facility] [address] [place] [address] Dr. Maxi Esparza Erythrocyte distribution width (RBC) [Ratio] 13.2 % Normal 11.0-15.0 [facility] Comment on above: Performed By: #### C BC #### [facility] [address] [place] [address] Dr. Maxi Esparza Hematocrit (Bld) [Volume fraction] 39.1 % Normal 36.0-48.0 [facility] Comment on above: Performed By: #### C BC #### [facility] [address] [place] [address] Dr. Maxi Esparza Hemoglobin (Bld) [Mass/Vol] 13.5 g/dL Normal 12.0-16.0 [facility] Comment on above: Performed By: #### C BC #### [facility] [address] [place] [address] Dr. Maxi Esparza IG # 0.01 10e3/ul Normal 0.00-0.03 [facility] Comment on above: Performed By: #### C BC #### [facility] [address] [place] [address] Dr. Maxi Esparza IG % 0.1 % Normal 0.0-0.5 [facility] Comment on above: Performed By: #### C BC #### [facility] [address] [place] [address] Dr. Maxi Esparza LYMPH # 3.9 103/ul Critically high 1.2-3.[address] [facility] Comment on above: Performed By: #### C BC #### [facility] [address] [place] [address] Dr. Maxi Esparza Lymphocytes/100 WBC (Bld) 42.9 % Normal 20.5-60.0 [facility] Comment on above: Performed By: #### C BC #### [facility] [address] [place] [address] Dr. Maxi Esparza MANUAL DIFF REQ NO Normal [facility] Comment on above: Performed By: #### C BC #### [facility] [address] [place] [address] Dr. Maxi Esparza MCH (RBC) [Entitic mass] 31.8 pg Normal 26.7-34.0 [facility] Comment on above: Performed By: #### C BC #### [facility] [address] [place] [address] Dr. Maxi Esparza MCHC (RBC) [Mass/Vol] 34.5 g/dL Normal 29.9-35.2 [facility] Comment on above: Performed By: #### C BC #### [facility] [address] [place] [address] Dr. Maxi Esparza MCV (RBC) [Entitic vol] 92.0 fL Normal 81.0-99.0 [facility] Comment on above: Performed By: #### C BC #### [facility] [address] [place] [address] Dr. Maxi Esparza MONO # 0.6 103/ul Normal 0.3-0.8 [facility] Comment on above: Performed By: #### C BC #### [facility] [address] [place] [address] Dr. Maxi Esparza Monocytes/100 WBC (Bld) 6.7 % Normal 1.7-12.0 [facility] Comment on above: Performed By: #### C BC #### [facility] [address] [place] [address] Dr. Maxi Esparza NEUT # 4.5 103/ul Normal 1.4-6.5 [facility] Comment on above: Performed By: #### C BC #### [facility] [address] [place] [address] Dr. Maxi Esparza Neutrophils/100 WBC (Bld) 49.1 % Normal 43.0-75.0 [facility] Comment on above: Performed By: #### C BC #### [facility] [address] [place] [address] Dr. Maxi Esparza Platelet mean volume (Bld) [Entitic vol] 10.4 fL Normal 9.5-13.5 [facility] Comment on above: Performed By: #### C BC #### [facility] [address] [place] [address] Dr. Maxi Esparza PLT 250 103/ul Normal 150-450 [facility] Comment on above: Performed By: #### C BC #### [facility] [address] [address] [address] Maxi Esparza RBC 4.25 106/ul Normal 4.20-5.40 [facility] Comment on above: Performed By: #### C BC #### [facility] [address] [address] [address] Maxi Esparza WBC 9.2 103/ul Normal 4.0-11.0 [facility] Comment on above: Performed By: #### C BC #### [facility] [address] [address] [address] Maxi Esparza CRPon 01-29-2022 CRP [Mass/Vol] mg/L Normal <=1.0 [facility] Comment on above: Performed By: #### B MP, CRP ####[facility] [address] [address]DrZander Esparza PROF CHEM 8 (BAS METB)on Anion gap [Moles/Vol] 7.6 mmol/L Normal [facility] Comment on above: Performed By: #### B MP, CRP ####[facility] [address] [place], [place] [address]DrZander Esparza Calcium [Mass/Vol] 9.0 mg/dL Normal 8.5-10.[address] [facility] Comment on above: Performed By: #### B MP, CRP ####[facility] [address] [place] [address]DrZander Esparza Chloride [Moles/Vol] 107 mmol/L Normal 98-107 [facility] Comment on above: Performed By: #### B MP, CRP ####[facility] [address] [address]DrZander Esparza CO2 [Moles/Vol] 29.8 mmol/L Normal 21.0-32.0 [facility] Comment on above: Performed By: #### B MP, CRP ####[facility] [address] [address]DrZander Esparza Creatinine [Mass/Vol] 0.81 mg/dL Normal 0.55-1.02 [facility] Comment on above: Performed By: #### B MP, CRP ####[facility] [address] [place] [id number]. Maxi Isaias EGFR-AF [place] >60 Normal >=60 [facility] Comment on above: Performed By: #### B MP, CRP ####[facility] [address] [place] [id number]. Carmengeovani Isaias EGFR-NON AF [place] >60 Normal >=60 [facility] Comment on above: Performed By: #### B MP, CRP ####[facility] [address] [address]Dr. Maxi Esparza Glucose [Mass/Vol] 94 mg/dL Normal 74-106 [facility] Comment on above: Performed By: #### B MP, CRP ####[facility] [address] [address]Dr. Maxi Esparza Potassium [Moles/Vol] 3.4 mmol/L Critically low 3.5-5.1 [facility] Comment on above: Performed By: #### B MP, CRP ####[facility] [address] [place], [place] [address]Dr. Maxi Esparza Sodium [Moles/Vol] 141 mmol/L Normal 136-145 [facility] Comment on above: Performed By: #### B MP, CRP ####[facility] [address] [place] [id number]. Maxi Esparza Urea nitrogen [Mass/Vol] 7.0 mg/dL Normal 7.0-18.0 [facility] Comment on above: Performed By: #### B MP, CRP ####[facility] [address] [place], [place] [address]Dr. Maxi Esparza Urea nitrogen/Creatinine [Mass ratio] 8.6 mg/mg Normal [facility] Comment on above: Performed By: #### B MP, CRP ####[facility] [address] [place] [id number]. Maxi Esparza SED RATE [facility] 2021 SED RATE 9 mm/hr Normal <=30 [facility] Comment on above: Performed By: #### S EDR #### [facility] [address] [place], [place] [address] Dr. Maxi Esparza Cardiovascular Lab Reporton 05-25-2018 Cardiovascular Lab Report [facility] Patient Name: [facility] MR #: [id number] Department of Physician: Marita Purcell Medicine [facility] Division of Service Date: 05/25/2018 Cardiology Birthdate: 1965 Adult Cardiovascular Room #: [facility] [address] [facility] [place] [address] Cardiovascular Laboratory Report FINAL IMPRESSIONS: 1. Angiographically [...] Follow up with Dr. Purcell in the [facility] in the next 1 to 2 [...] right common femoral artery was obtained. A 6-[place] 11 cm sheath was inserted without difficulty. Baseline angiography via the side arm of the sheath was performed. A 5-[place] Uni flush catheter was advanced in and [...] P Marita Purcell M.D. Date Dict: 05/25/2018/10:49 Wayne Purcell M.D. Date Trans: 05/25/2018 11:48 Pat/bernardino [id number] cc: Jv Boyd M.D. [address] Pat [facility] [id number] [facility] Vital Signs Date Time Vital Sign Value Performing Clinician Facility 12-22-2023 15:31-0400 Body height 162.6 cm Corine Carr MD Work Phone: [facility] 12-22-2023 15:31-0400 Body mass index (BMI) [Ratio] 22.86 kg/m2 Corine Carr MD Work Phone: [facility] 12-22-2023 15:31-0400 Body temperature 98.49 [degF] Corine Carr MD Work Phone: [facility] 12-22-2023 15:31-0400 Body weight 60.42 kg Corine Carr MD Work Phone: [facility] 12-22-2023 15:31-0400 Diastolic blood pressure 68 mm[Hg] Corine Carr MD Work Phone: [facility] 12-22-2023 15:31-0400 Heart rate 65 /min Corine Carr MD Work Phone: [facility] 12-22-2023 15:31-0400 SaO2% (BldA) [Mass fraction] 95 % Corine Carr MD Work Phone: [facility] 12-22-2023 15:31-0400 Systolic blood pressure 118 mm[Hg] Corine Carr MD Work Phone: [facility] 08-17-2023 11:57-0400 Body mass index (BMI) [Ratio] 23 kg/m2 Corine Carr MD Work Phone: [facility] 08-17-2023 11:57-0400 Body temperature 97.81 [degF] Corine Carr MD Work Phone: [facility] 08-17-2023 11:57-0400 Body weight 60.78 kg Corine Carr MD Work Phone: [facility] 08-17-2023 11:57-0400 Diastolic blood pressure 86 mm[Hg] Corine Carr MD Work Phone: [facility] 08-17-2023 11:57-0400 Heart rate 85 /min Corine Carr MD Work Phone: [facility] 08-17-2023 11:57-0400 SaO2% (BldA) [Mass fraction] 98 % Corine Carr MD Work Phone: [facility] 08-17-2023 11:57-0400 Systolic blood pressure 138 mm[Hg] Corine Carr MD Work Phone: [facility] 07-27-2023 14:06-0400 Body height 162.6 cm Geovany Stanton [employer] Work Phone: [facility] 07-27-2023 14:06-0400 Body mass index (BMI) [Ratio] 23.16 kg/m2 Geovany Stanton [employer] Work Phone: [facility] 07-27-2023 14:06-0400 Body temperature 98.01 [degF] Geovany Stanton [employer] Work Phone: [facility] 07-27-2023 14:06-0400 Body weight 61.24 kg Geovnay Stanton [employer] Work Phone: [facility] 07-27-2023 14:06-0400 Diastolic blood pressure 76 mm[Hg] Geovany Stanton [employer] Work Phone: [facility] 07-27-2023 14:06-0400 Heart rate 71 /min Geovany Stanton [employer] Work Phone: [facility] 07-27-2023 14:06-0400 SaO2% (BldA) [Mass fraction] 99 % Geovany Stanton [employer] Work Phone: [facility] 07-27-2023 14:06-0400 Systolic blood pressure 136 mm[Hg] Geovany Stanton [employer]CIAL [employer] Work Phone: [facility] Encounters Encounter Date Encounter Type Care Provider Facility Start: 04-18-2024 End: 04-18-2024 Orders Only Corine Carr MD Work Phone: [facility] Comment on above: Dysuria (Primary Dx) Start: 04-15-2024 End: 04-15-2024 Emergency department patient visit [facility] Start: 04-13-2024 End: 04-16-2024 Refill Corine Carr MD Work Phone: [facility] Comment on above: Subcapital fracture of hip, right, closed, initial encounter ([facility]) Start: 04-11-2024 End: 04-11-2024 Emergency department patient visit [facility] Start: 04-09-2024 End: 04-09-2024 Orders Only Corine Carr MD Work Phone: [facility] Comment on above: URI, acute (Primary Dx) Start: 03-14-2024 End: 03-14-2024 Refill Corine Carr MD Work Phone: [facility] Comment on above: Subcapital fracture of hip, right, closed, initial encounter ([facility]) Start: 03-10-2024 End: 03-10-2024 Refill Geovany Fredrick [employer] Work Phone: [facility] Comment on above: Chronic obstructive pulmonary disease, unspecified COPD type ([facility]) Start: 02-19-2024 End: 02-20-2024 Refill Kalye HERRERA Work Phone: [facility] Comment on above: Primary hypertension ; ASCVD (arteriosclerotic cardiovascular disease) Start: 02-17-2024 End: 02-17-2024 Refill Zandra Sharma CMA [facility] Comment on above: Subcapital fracture of hip, right, closed, initial encounter ([facility]) Start: 01-23-2024 End: 01-23-2024 Refill Cor[facility] MD [facility] Comment on above: Subcapital fracture of hip, right, closed, initial encounter ([facility]) Start: 01-18-2024 End: 01-19-2024 Refill Corine Carr MD Work Phone: [facility] Comment on above: Primary hypertension Start: 01-13-2024 End: 01-13-2024 Refill Corine Carr MD Work Phone: [facility] Comment on above: Subcapital fracture of hip, right, closed, initial encounter ([facility]) Start: 12-23-2023 End: 12-23-2023 ambulatory [facility] Start: 12-22-2023 End: 12-22-2023 Office outpatient visit 25 minutes Corine Carr MD Work Phone: [facility] Comment on above: Fatigue due to exces sive exertion, initial encounter (Primary Dx); Chronic obstructive pulmonary disease, unspecified COPD type ([facility]) Start: 12-22-2023 End: 12-22-2023 ambulatory KATELYNHI Grazyna [facility] Start: 12-22-2023 End: 12-22-2023 Refill Corine Carr MD Work Phone: [facility] Comment on above: Subcapital fracture of hip, right, closed, initial encounter ([facility]) Start: 11-23-2023 End: 11-23-2023 Refill Nila Corona [facility] Comment on above: Primary hypertension ; ASCVD (arteriosclerotic cardiovascular disease) Start: 11-11-2023 End: 11-11-2023 Refill Nila Corona [facility] Comment on above: Subcapital fracture of hip, right, closed, initial encounter ([facility]) Start: 10-24-2023 End: 10-24-2023 Refill Adysan Anivalk [facility] Comment on above: Primary hypertension Start: 10-23-2023 End: 10-24-2023 Refill Corine Carr MD Work Phone: [facility] Comment on above: Primary hypertension Start: 10-14-2023 End: 10-14-2023 Refill Mario Ly [facility] Comment on above: Subcapital fracture of hip, right, closed, initial encounter ([facility]) Start: 09-22-2023 End: 09-22-2023 Refill Corine Carr MD Work Phone: [facility] Comment on above: Subcapital fracture of hip, right, closed, initial encounter ([facility]) Start: 08-23-2023 End: 08-23-2023 Refill Nila Corona [facility] Comment on above: Subcapital fracture of hip, right, closed, initial encounter ([facility]) Start: 08-17-2023 End: 08-17-2023 Office outpatient visit 25 minutes Corine Carr MD Work Phone: [facility] Comment on above: Dental infection (Pr imary Dx); Chronic obstructive pulmonary disease, unspecified COPD type ([facility]) Start: 08-17-2023 End: 08-17-2023 ambulatory CORINE CARR [facility] Start: 08-16-2023 End: 08-17-2023 Emergency department patient visit MUHAMID M LILLY 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: [facility] Comment on above: Chronic obstructive pulmonary disease, unspecified COPD type ([facility]) Start: 07-27-2023 End: 07-27-2023 ambulatory [facility] Start: 07-27-2023 End: 07-27-2023 Office outpatient visit 10 minutes [facility] COMM[employer]CIAL DES[employer] Work Phone: [facility] Comment on above: Subcapital fracture of hip, right, closed, initial encounter ([facility]) (Primary Dx); Bronchitis Start: 07-11-2023 End: 07-11-2023 Ref[facility] Comment on above: Primary hypertension Start: 06-27-2023 End: 06-27-2023 Orders Only Corine Carr MD Work Phone: [facility] Comment on above: Subcapital fracture of hip, right, closed, initial encounter ([facility]) Start: 05-27-2023 Refill Adysan Sleek [employer] [facility] Comment on above: Subcapital fracture of hip, right, closed, initial encounter ([facility] Start: 03-22-2023 Refill Corine Carr MD Work Phone: [facility] Comment on above: Subcapital fracture of hip, right, closed, initial encounter ([facility]) Start: 03-13-2023 Refill Corine Carr MD Work Phone: [facility] Comment on above: Primary hypertension ; ASCVD (arteriosclerotic cardiovascular disease); Subcapital fracture of hip, right, closed, initial encounter ([facility]) Start: 07-12-2022 End: 07-12-[address] KARTHIK RENDON . Facility:[facility] Start: 06-02-2022 End: 06-03-2022 ambulatory OSMANY MANZO Facility:[facility] Start: 01-28-2022 End: 01-29-2022 ambulatory MARICHUY CARR Facility:[facility] Start: 01-20-2022 ambulatory MARICHUY CARR Facili ty:[facility] Start: 11-04-2021 ambulatory MARICHUY CARR Facili ty:[facility] Start: 10-29-2021 End: 10-29-2021 ambulatory MARICHUY CARR Facility: Start: 05-25-2018 End: 05-26-2018 Patient encounter procedure AB A BIA Facility:[facility] Start: 05-15-2018 End: 05-16-2018 Patient encounter procedure DEFAULT PHYSICIAN Facility:[facility] Procedures Date Procedure Procedure Detail Performing Clinician Start: 09-07-2022 Adult depression scr eening assessment Adysan Sleek [employer] Start: 05-25-2018 ARTERY X-RAYS ARMS/LEGS [facility] Plan of Treatment Date Care Activity Detail Author Start: 04-15-2025 Adult BMI Screening Adult BMI Screen ing [facility] Start: 04-15-2025 Tobacco Screening Tobacco Screening [facility] Start: 12-21-2024 Adult BMI Screening Adult BMI Screen ing [facility] Start: 12-21-2024 Tobacco Screening Tobacco Screening [facility] Start: 08-16-2024 Adult BMI Screening Adult BMI Screen ing [facility] Start: 08-16-2024 Tobacco Screening Tobacco Screening [facility] Start: 08-15-2024 Adult BMI Screening Adult BMI Screen ing [facility] Start: 08-15-2024 Tobacco Screening Tobacco Screening [facility] Start: 07-30-2024 Tobacco Screening Tobacco Screening [facility] Start: 07-26-2024 Adult BMI Screening Adult BMI Screen ing [facility] Start: 07-26-2024 Tobacco Screening Tobacco Screening [facility] Start: 04-18-2024 End: 04-18-2025 Bacteria identified in Urine by Culture Urine Culture Microbiology Routine Dysuria Expected: 04/18/2024 (Approximate), Expires: 04/18/2025 [facility] Comment on above: Expected: 04/18/2024 (Approximate), Expires: 04/18/2025 Start: 04-18-2024 End: 04-18-2025 Urinalysis Urinalysis Lab Routine Dysuria Expected: 04/18/2024 (Approximate), Expires: 04/18/2025 [employer] Work Phone: Comment on above: Expected: 04/18/2024 (Approximate), Expires: 04/18/2025 Start: 01-07-2024 Tobacco [facility]ening [facility] Start: 12-22-2023 End: 12-21-2024 CBC W Auto Differential panel - Blood CBC auto differential Lab Routine Fatigue due to excessive exertion, initial encounter Expected: 12/22/2023 (Approximate), Expires: 12/21/2024 [employer] Phone: Comment on above: Expected: 12/22/2023 (Approximate), Expires: 12/21/2024 Start: 12-22-2023 End: 12-21-2024 Comprehensive metabolic 2000 panel - Serum or Plasma Comprehensive metabolic panel Lab Routine Fatigue due to excessive exertion, initial encounter Expected: 12/22/2023 (Approximate), Expires: 12[facility]21/2024 [facility] Comment on above: Expected: 12/22/2023 (Approximate), Expires: 12/21/2024 Start: 12-22-2023 End: 12-21-2024 Erythrocyte sedimentation rate Erythrocyte Sedimentation Rate (ESR) Lab Routine Fatigue due to excessive exertion, initial encounter Expected: 12/22/2023 (Approximate), Expires: 12/21/2024 [facility] Comment on above: Expected: 12/22/2023 (Approximate), Expires: 12/21/2024 Start: 12-22-2023 End: 12-21-2024 Hemoglobin A1c/Hemoglobin.total in Blood Hemoglobin A1c Lab Routine Fatigue due to excessive exertion, initial encounter Expected: 12/22/2023 (Approximate), Expires: 12/21/2024 [facility] Comment on above: Expected: 12/22/2023 (Approximate), Expires: 12/21/2024 Start: 12-22-2023 End: 12-21-2024 Lipid 1996 panel - Serum or Plasma Lipid profile Lab Routine Fatigue due to excessive exertion, initial encounter Expected: 12/22/2023 (Approximate), Expires: 12/21/2024 [facility] Comment on above: Expected: 12/22/2023 (Approximate), Expires: 12/21/2024 Start: 12-22-2023 End: 12-21-2024 Magnesium [Mass/volume] in Serum or Plasma Magnesium Lab Routine Fatigue due to excessive exertion, initial encounter Expected: 12/22/2023 (Approximate), Expires: 12/21/2024 [facility] Comment on above: Expected: 12/22/2023 (Approximate), Expires: 12/21/2024 Start: 12-22-2023 End: 12-21-2024 Phosphate [Mass/volume] in Serum or Plasma Phosphorus Lab Routine Fatigue due to excessive exertion, initial encounter Expected: 12/22/2023 (Approximate), Expires: 12/21/2024 [facility] Comment on above: Expected: 12/22/2023 (Approximate), Expires: 12/21/2024 Start: 12-22-2023 End: 12-21-2024 TSH with Reflex TSH with Reflex Lab Routine Fatigue due to excessive exertion, initial encounter Expected: 12/22/2023 (Approximate), Expires: 12/21/2024 [facility] [employer] Comment on above: Expected: 12/22/2023 (Approximate), Expires: 12/21/2024 Start: 12-22-2023 End: 12-21-2024 Vitamin D 25 hydroxy Vitamin D 25 hydroxy Lab Routine Fatigue due to excessive exertion, initial encounter Expected: 12/22/2023 (Approximate), Expires: 12/21/2024 [facility] Comment on above: Expected: 12/22/2023 (Approximate), Expires: 12/21/2024 Start: 12-22-2023 End: 12-21-2024 XR Chest PA and Lateral [facility] Comment on above: Expected: 12/22/2023 , Expires: 12/21/2024 Start: 11-24-2023 Adult BMI Screening [facility] Screen [facility] Start: 11-22-2023 End: 11-22-2023 Telemedicine consultation with patient 11/22/2023 7:45 AM EDT [facility]icine [facility] [address] [place] [address] [place] [id number] Corine Carr MD [address] [place] [place] [address] [facility] Start: 11-18-2023 End: 11-18-2023 Telemedicine consultation with patient 11/18/2023 9:45 AM EDT Telemedicine [facility] [address] [place] [id number] Corine Carr MD [address], [place] [address] [facility] Start: 11-13-2023 Influenza vaccination Influenza Vacc ine [facility] Start: 09-08-2023 [facility] Start: 11-12-2022 Influenza vaccination Influenza Vacc ine [facility] Start: 07-17-2017 Administration of varicella zoster vaccine Zoster (Shingles) Vaccine (1 of 2) [facility] Start: 07-17-2012 Screening for malign ant neoplasm of colon Colonoscopy [facility] Start: 2007 Screening for malign ant neoplasm of breast Mammogram [facility] Start: 07-17-1988 Screening for malign ant neoplasm of cervix Pap Smear [facility] Start: 07-17-1986 DTaP,Tdap and Td Vaccines (1 - Tdap) DTaP,Tdap and Td Vaccines (1 - Tdap) [facility] Start: 1967 Tobacco Counseling Tobacco Counselin g [facility] End: 12-21-2024 Procalcitonin Procalcitonin Lab Routine Fatigue due to excessive exertion, initial encounter 1 Occurrences starting 12/22/2023 until 12/21/2024 [facility] Comment on above: 1 Occurrences starti ng 12/22/2023 until 12/21/2024 Payers Date Payer Category Payer Medicaid [employer] O [id number] 2022-Present [phone] [address] [place] [address] [id number] 2022 Medicaid HMO [employer] [id number] 1967 Unknown [id number] [id number] 1967 Unknown [id number] 2.16.840.1.653986.3.579.2.647 1967 Unknown [id number] 2.16.840.1.024724.3.579.2.593 1967 Unknown [id number] 2.16.840.1.546773.3.579.2.59 1967 Unknown [id number] 2.16.840.1.807522.3.579.2.593 1967 Unknown [id number] 2.16.840.1.540778.3.579.2.59 1967 Unknown [id number] 2.16.840.1.696387.3.579.2.593 1967 Unknown [id number] 2.16.840.1.622474.3.579.2.593 1967 Unknown [id number] 2.16.840.1.326596.3.579.2.1285 1967 Unknown [id number] 2.16.840.1.899929.3.579.2.1285 1967 Unknown [id number] 2.16.840.1.188246.3.579.2.1285 1967 Unknown [id number] 2.16.840.1.994356.3.579.2.1285 1967 Unknown [id number] 2.16.840.1.625464.3.579.2.1285 1967 Unknown [id number] 2.16.840.1.447747.3.579.2.1285 1967 Unknown [id number] 2.16.840.1.276157.3.579.2.1285 1967 Unknown [id number] 2.16840.1.577691.3.579.2.1285 1967 Unknown [id number] 2.16.840.1.178952.3.579.2.6 1957 Medicaid [id number] 1957 Self-pay [id number] 1957 Unknown [id number] Unknown Social History Date Type Detail Facility Start: 09-07-2022 End: 07-27-2023 Tobacco smoking status ARIS Smokes tobacco daily [facility] History of tobacco use Cigarette Smoker [facility] Start: 04-24-2020 End: 09-07-2022 Cigarettes smoked current (pack per day) - Reported 1 [facility] Start: 09-07-2022 End: 04-11-2024 Tobacco use and exposure Smokeless tobacco non-user [facility] Start: 01-06-2023 End: 04-15-2024 Alcohol intake Ex-drinker (finding) [facility] Start: 04-24-2020 End: 01-06-2023 Tobacco use panel [facility] How hard is it for y ou to pay for the very basics like food, housing, medical care, and heating Not hard at all [facility] Start: 1965 Sex Assigned At Not on file [facility] Start: 1965 Sex assigned at Female [facility] Start: 11-11-2023 Gender identity Identifies as female gender (finding) [facility] Start: 11-11-2023 Sexual orientation Heterosexual (onur he) [facility] Start: 10-17-2014 Sex Female (finding) [facility] Start: 04-11-2024 Tobacco smoking stat NHIS Occasional tobacco smoker [facility] Medical Equipment Procedure Code Equipment Code Equipment Origin al Text Equipment Identifier Dates Screw Bn 85mm 32 mm 7mm 8mm Cnn Slf Drl St Hx Hd Ft Ankl - Sna - [id number] Start: 11-08-2022 Screw Bn 90mm 32 mm 7mm 8mm Cnn Slf Drl St Hx Hd Ft Ankl - Sna - [id number] Start: 11-08-2022 Goals Date Patient Goal Desired Activity /State Personal health goal Comment on above: Formatting of this n ote might be different from the original. Evaluation of progress towards goal: Safe dc transition home with therapy follow up pending clinical course. Clinical Notes 07-27-2023 to 02-17-2024 Telephone Encounter - Zandra Sharma CMA - 02/17/2024 8:54 AM ESTTelephone Encounter - Zandra Sharma CMA - 02/17/2024 8:54 AM Brii Carr MD - 12/22/2023 3:30 PM EDT Note Date & Type Note Facility 02-17-2024 Miscellaneous Notes Patient is in need of a refill of tramadol. Pended in chart. Please advise documented in this encounter [facility] 02-17-2024 Telephone encounter Note Patient is in need of a refill of tramadol. Pended in chart. Please advise [facility] 12-23-2023 Note XR CHEST 2 VWS Procedure: Chest x-ray performed Number of views:PA and lateral History:Chronic cough Comparison:11/06/2022 Findings: The heart and lungs show no acute findings, and the mediastinum and marla are grossly negative . Impression: No acute change. Finalized by Catia Fernández DO on 12/23/2023 2:[address] [facility] 12-22-2023 History of Presen t illness Narrative Images from the original note were not included. [address] [place] [address] [address] [facility] [phone] Patient: Laury Iglesias Date of : 1965 [...] Chronic obstructive pulmonary disease, unspecified COPD type ([facility]) - netweonutti-turpczfap-uuynvkga (TRELEGY ELLIPTA) 100-62.5-25 mcg blister with device; Inhale 1 puff in the morning. Unremarkable pulmonary exam Will assess metabolic workup as above Zavell as procalcitonin chest x-ray to be completed. Follow-up as needed. CORINE CARR MD Family Medicine Physician [facility] 12/22/23 This note was completed with voice recognition software. The document was reviewed for errors however some may still be present. Please do not hesitate to contact/[facility] the author to verify any questions/concerns. documented in this encounter [email or web address] 11-11-2023 History of Presen t illness Narrative The OARRS/MAPPS database was reviewed today and found to be appropriate. No indication of medication diversion, or non compliance. JAVIER Parker 11/11/23 1240 documented in this encounter [facility] 09-22-2023 Miscellaneous Notes Patient requesting refill to [facility] in [place], [place] documented in this encounter [facility] 09-22-2023 Telephone encounter Note Patient requesting refill to [facility] in [place] [facility] 08-17-2023 History of Presen t illness Narrative Images from the original note were not included. [address] [place] [phone] Patient: Laury Iglesias Date of : 1965 Encounter Date: 08/17/2023 SUBJECTIVE: Chief Complaint: Chief Complaint Patient presents with Jaw Pain X3 days Patient ID: Laury Iglesias is a 58 y.o. female. Facial pain, Acute onset Left sided face Was in the ER, received pain control and penicillin Sent home on Abx Feels a bitter better today COPD: No home O2 needs currently on Spiriva inhaler. Frequently uses rescue inhalers, more than 4-5 times a week. Currently on Spiriva inhaler, continues to have episodes of shortness a breath and wheezing. Is an active smoker. Has had previous hospitalizations for COPD exacerbations. The following portions of the patient's history were reviewed and updated as appropriate: allergies, current medications, past family history, past medical history, past social history, past surgical history and problem list. PHYSICAL EXAMINATION: Vitals: 08/17/23 1157 BP: 138/86 BP Site: Left Arm BP Postition: Sitting Pulse: 85 Temp: 36.6 C (97.8 F) TempSrc: Oral SpO2: 98% Weight: 60.8 kg (134 lb) Physical Exam Vitals reviewed. Constitutional: General: She is not in acute distress. Appearance: Normal appearance. Eyes: Extraocular Movements: Extraocular movements intact. Pupils: Pupils are equal, round, and reactive to light. Cardiovascular: Rate and Rhythm: Normal rate and regular rhythm. Pulses: Normal pulses. Heart sounds: Normal heart sounds. Pulmonary: Effort: Pulmonary effort is normal. No respiratory distress. Breath sounds: Normal breath sounds. No wheezing or rhonchi. Abdominal: General: Bowel sounds are normal. There is no distension. Palpations: Abdomen is soft. There is no mass. Tenderness: There is no abdominal tenderness. There is no right CVA tenderness, left CVA tenderness or guarding. Musculoskeletal: Cervical back: Normal range of motion and neck supple. Comments: Pain can be elicited on palpation of the left side of mandibular region of the jaw. Pain can also be elicited on palpation of the 3rd molar on the left lower jaw. TMJ sore and tender but not exhibiting these most significant tenderness. No obvious signs of abscess or drainage or purulence around tooth or oropharynx. Neurological: Mental Status: She is alert and oriented to person, place, and time. Mental status is at baseline. ASSESSMENT/PLAN: Marlene was seen today for jaw pain. Diagnoses and all orders for this visit: Dental infection - amoxicillin-pot clavulanate (AUGMENTIN) 875-125 mg per tablet; Take 1 tablet by mouth in the morning and 1 tablet before bedtime. Do all this for 10 days. Chronic obstructive pulmonary disease, unspecified COPD type ([facility]) - ghooimauxkw-bmewuqxkh-cquosnil (TRELEGY ELLIPTA) 100-62.5-25 mcg blister with device; Inhale 1 puff in the morning. CORINE CARR MD Family Medicine Physician [facility] 08/17/23 This note was completed with voice recognition software. The document was reviewed for errors however some may still be present. Please do not hesitate to contact/[facility] the author to verify any questions/concerns. documented in this encounter [email or web address] 07-27-2023 History of Presen t illness Narrative Subjective Patient ID: Laury Iglesias is a 58 y.o. female. AYDIN Rosario presents to the office for sick visit. Symptoms include- Cough, drainage, myalgia, thick yellow nasal drainage, and some shortness of breath since Tuesday. She feels the drainage is going into her chest. No headache, fever, chills, chest pain or facial pain or pressure. No home covid test. Reports she had sick exposure last week as her grandchildren were sick. She has taken OTC sinus medication, but not helpful. She took flonase. She has known history of COPD. Tramadol she occasionally gets hip pain since she broke it in October. Takes it as needed. She cannot squat, if she gets down on the ground she cannot get up without help. She feels like her pain is exacerbated as she has been trying to exercise more, for the past 2 months. The pain has been constant about a 4, but gets up to an 8. The following portions of the patient's history were reviewed and updated as appropriate: allergies, current medications, past family history, past medical history, past social history, past surgical history, and problem list. Review of Systems Constitutional: Negative for chills, diaphoresis, fever and unexpected weight change. HENT: Positive for congestion, postnasal drip and rhinorrhea. Negative for sinus pressure. Respiratory: Positive for cough and shortness of breath. Negative for chest tightness. Cardiovascular: Negative for chest pain and palpitations. Musculoskeletal: Positive for arthralgias and myalgias. Skin: Negative. Neurological: Negative for dizziness and headaches. Objective Physical Exam Vitals and nursing note reviewed. Constitutional: General: She is not in acute distress. Appearance: Normal appearance. She is not ill-appearing. HENT: Head: Normocephalic and atraumatic. Right Ear: Tympanic membrane, ear canal and external ear normal. Left Ear: Tympanic membrane, ear canal and external ear normal. Nose: Nose normal. Mouth/Throat: Mouth: Mucous membranes are moist. Pharynx: Oropharynx is clear. No oropharyngeal exudate or posterior oropharyngeal erythema. Eyes: Extraocular Movements: Extraocular movements intact. Pupils: Pupils are equal, round, and reactive to light. Cardiovascular: Rate and Rhythm: Normal rate and regular rhythm. Pulmonary: Effort: Pulmonary effort is normal. No respiratory distress. Breath sounds: No stridor. Rhonchi present. No wheezing or rales. Comments: Coarseness to bilateral basses clears with cough. Lymphadenopathy: Cervical: No cervical adenopathy. Skin: Capillary Refill: Capillary refill takes less than 2 seconds. Findings: No erythema or rash. Neurological: General: No focal deficit present. Mental Status: She is alert and oriented to person, place, and time. Psychiatric: Mood and Affect: Mood normal. Behavior: Behavior normal. Assessment/Plan I can refill her tramadol for hip pain. Encouraged to only take PRN, when needed. This is not a senior living medication. I will treat her for bronchitis given her hx of COPD and worsening cough. Mucinex also sent to help expectorate cough. She will call the office if symptoms do not improve. Marlene was seen today for cough. Diagnoses and all orders for this visit: Subcapital fracture of hip, right, closed, initial encounter ([facility]) - traMADoL (ULTRAM) 50 mg tablet; Take 1 tablet (50 mg total) by mouth every 6 (six) hours as needed for pain. Bronchitis - guaiFENesin (MUCINEX) 600 mg tablet extended release 12hr; Take 1 tablet (600 mg total) by mouth every 12 (twelve) hours for 10 days. - azithromycin (ZITHROMAX) 250 mg tablet; Take 1 tablet (250 mg total) by mouth in the morning for 5 days. Take 2 tablets the first day, then 1 tablet daily for 4 days.. JAVIER Parker 07/31/231816 documented in this encounter [facility] Evaluation note Diagnosis Subcapital fracture of hip, right, closed, initial encounter ([facility]) documented in this encounter [facility]* Diagnosis Subcapital fracture of hip, right, closed, initial encounter ([facility]) documented in this encounter [facility]* Diagnosis Fatigue due to excessive exertion, initial encounter- Primary Chronic obstructive pulmonary disease, unspecified COPD type ([facility]) documented in this encounter [facility]* Diagnosis Primary hypertension Unspecified essential hypertension documented in this encounter [facility]* Diagnosis Subcapital fracture of hip, right, closed, initial encounter ([facility]) documented in this encounter [facility]* Diagnosis Primary hypertension Unspecified essential hypertension ASCVD (arteriosclerotic cardiovascular disease) Unspecified cardiovascular disease documented in this encounter [facility]* Diagnosis Chronic obstructive pulmonary disease, unspecified COPD type ([facility]) documented in this encounter [facility]* Diagnosis Subcapital fracture of hip, right, closed, initial encounter ([facility]) documented in this encounter [facility]* Diagnosis Primary hypertension Unspecified essential hypertension documented in this encounter [facility]* Diagnosis Chronic obstructive pulmonary disease, unspecified COPD type ([facility]) documented in this encounter [facility]* Diagnosis Dental infection- Primary Chronic obstructive pulmonary disease, unspecified COPD type ([facility]) documented in this encounter [facility]* Diagnosis Subcapital fracture of hip, right, closed, initial encounter ([facility])- Primary Bronchitis Bronchitis, not specified as acute or chronic documented in this encounter [facility]* Diagnosis Chronic obstructive pulmonary disease, unspecified COPD type ([facility]) documented in this encounter [facility]* Diagnosis Subcapital fracture of hip, right, closed, initial encounter ([facility]) documented in this encounter [facility]* Diagnosis Primary hypertension Unspecified essential hypertension documented in this encounter [facility]* Diagnosis Primary hypertension Unspecified essential hypertension documented in this encounter [facility]* Diagnosis Primary hypertension Unspecified essential hypertension ASCVD (arteriosclerotic cardiovascular disease) Unspecified cardiovascular disease documented in this encounter [facility]* Diagnosis URI, acute- Primary Acute upper respiratory infections of unspecified site documented in this encounter [facility]* Diagnosis Subcapital fracture of hip, right, closed, initial encounter ([facility]) documented in this encounter [facility]* Diagnosis Dysuria- Primary documented in this encounter [facility]* Diagnosis Primary hypertension Unspecified essential hypertension ASCVD (arteriosclerotic cardiovascular disease) Unspecified cardiovascular disease Subcapital fracture of hip, right, closed, initial encounter ([facility]) [facility] Subcapital fracture of hip, right, closed, initial encounter ([facility]) [facility] filedocumented in [facility] encounter [facility] filedocumented in this [facility] filedocumented in this encounter [facility] filedocument[facility] in this encounter [facility] on filedocumented in this encounter [facility] filedocumented in this encounter [facility]Not on filedocumented in this encounter [facility] on filedocumented in this encounter [facility] filedocumented in this encounter [facility] filedocumented in this encounter [facility] Summary Purpose Family History [...] Referral Specialty Diagnoses / Procedures Referred By Logan lewis Referred To Contact Diagnoses Chronic obstructive pulmonary disease, unspecified COPD type ([facility]) Corine Carr MD [address] [place] [address] Referral ID Status Reason Start Date Expiration Date V isits Requested Visits Authorized [id number] Pending Review 12/22/2023 12/21/2024 1 1 Referral ID Status Reason Start Date Expiration Date V isits Requested Visits Authorized [id number] Pending Review 1 1 Additional Source Comments INFORMATION SOURCE (unrecogn ized section and content) DATE CREATED AUTHOR 06/12/2018 [facility] DATE CREATED AUTHOR AUTHOR'S ORGANIZ ATION 07/13/2022 [facility] DATE CREATED AUTHOR AUTHOR'S ORGANIZ ATION 12/25/2023 [facility] DATE CREATED AUTHOR AUTHOR'S ORGANIZ ATION 04/16/2024 [facility] Care Teams (unrecognized sec tion and content) Prison Classification Counselor Relationship Specialty Start Date End Date Corine Carr MD [address] [place] [address] PCP - General Internal Medicine 09/07/22 Prison Classification Counselor Relationship Specialty Start Date End Date Corine Carr MD [address] [place] [address] PCP - General Internal Medicine 09/07/22 Prison Classification Counselor Relationship Specialty Start Date End Date Corine Carr MD [address] [place] [address] PCP - General Internal Medicine 09/07/22 Prison Classification Counselor Relationship Specialty Start Date End Date Corine Carr MD [address] [place] [address] PCP - General Internal Medicine 09/07/22 Prison Classification Counselor Relationship Specialty Start Date End Date Corine Carr MD [address] [place] [address] PCP - General Internal Medicine 09/07/22 Prison Classification Counselor Relationship Specialty Start Date End Date Corine Carr MD [address] [place] [address] PCP - General Internal Medicine 09/07/22 Prison Classification Counselor Relationship Specialty Start Date End Date Corine Carr MD [address] [place] [address] PCP - General Internal Medicine 09/07/22 Prison Classification Counselor Relationship Specialty Start Date End Date Corine Carr MD [address], [place] [address] PCP - General Internal Medicine 09/07/22 Prison Classification Counselor Relationship Specialty Start Date End Date Corine Carr MD [address], [place] [address] PCP - General Internal Medicine 09/07/22 Prison Classification Counselor Relationship Specialty Start Date End Date Corine Carr MD [address], [place] [address] PCP - General Internal Medicine 09/07/22 Prison Classification Counselor Relationship Specialty Start Date End Date Corine Carr MD [address], [place] [address] PCP - General Internal Medicine 09/07/22 Prison Classification Counselor Relationship Specialty Start Date End Date Corine Carr MD [address], [place] [address] PCP - General Internal Medicine 09/07/22 Prison Classification Counselor Relationship Specialty Start Date End Date Corine Carr MD [address], [place] [address] PCP - General Internal Medicine 09/07/22 Prison Classification Counselor Relationship Specialty Start Date End Date Corine Carr MD [address] [facility] [place] [id number] PCP - General Internal Medicine 09/07/22 Reason for Visit (unrecogniz ed section and content) Reason Comments Med Refill Reason Comments Fatigue Irregular heart rate , light headed X 3 weeks Reason Onset Date Comments Med Refill 01/13/2024 Reason Onset Date Comments Med Refill 01/23/2024 Reason Onset Date Comments Med Refill 03/10/2024 Reason Onset Date Comments Med Refill 03/14/2024 Reason Comments Jaw Pain X3 days Reason Comments Cough Reason Onset Date Comments Med Refill 11/11/2023 Reason Onset Date Comments Med Refill 08/23/2023 Reason Onset Date Comments Med Refill 04/13/2024 Reason Onset Date Comments Med Refill 03/22/2023 FOR RECORDS PERTAINING TO PATIENTS WHO ARE [...] BE BASED ON THE PRIMARY CLINICAL RECORDS. [facility]. provides no warranty or guarantee of the accuracy or completeness of information in this document.
--- NOTE | 2024-04-24 23:26 | XR_ITS ---
The [address] [address] Patient Name: MARY DOE MRN: [id number] date: 1965 Sex: F Assigned Patient Location: ER Current Patient Location: ER Accession/Order Number: [id number] Exam Date: 04/24/2024 23:40 Report Date: 04/25/2024 00:52 At the request of: CATHY MORA Procedure: XR sacrum coccyx min 2V EXAM: XR sacrum coccyx min 2V, XR lumbar spine 2-3V HISTORY: fall COMPARISON: Correlation is made with CT abdomen and pelvis examination dated 06/02/2022. TECHNIQUE: Frontal and lateral views of the lumbar spine were obtained. 3 views of the sacrum and coccyx were obtained. FINDINGS: There are 5 lumbar type vertebral bodies. No acute fracture or subluxation is seen. The vertebral body heights are preserved. The vertebral elements are in anatomic alignment. Partially imaged are postsurgical changes of the right femur. The sacroiliac joints and pubic symphysis are preserved. A genital piercing is noted. 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 XR/XR sacrum coccyx min 2V IMPRESSION: 1. No acute fracture or subluxation of the lumbar spine or sacrum or coccyx is seen. If there is concern for an occult injury, cross-sectional imaging is recommended. Electronically authenticated by: Gregorio LOPEZ Date: 04/25/2024 00:52
--- NOTE | 2024-04-24 23:26 | XR_ITS ---
The [address] [address] Patient Name: MARY DOE MRN: [id number] date: 1965 Sex: F Assigned Patient Location: ER Current Patient Location: ER Accession/Order Number: [id number] Exam Date: 04/24/2024 23:40 Report Date: 04/25/2024 00:52 At the request of: CATHY MORA Procedure: XR lumbar spine 2-3V EXAM: XR sacrum coccyx min 2V, XR lumbar spine 2-3V HISTORY: fall COMPARISON: Correlation is made with CT abdomen and pelvis examination dated 06/02/2022. TECHNIQUE: Frontal and lateral views of the lumbar spine were obtained. 3 views of the sacrum and coccyx were obtained. FINDINGS: There are 5 lumbar type vertebral bodies. No acute fracture or subluxation is seen. The vertebral body heights are preserved. The vertebral elements are in anatomic alignment. Partially imaged are postsurgical changes of the right femur. The sacroiliac joints and pubic symphysis are preserved. A genital piercing is noted. 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 XR/XR lumbar spine 2-3V IMPRESSION: 1. No acute fracture or subluxation of the lumbar spine or sacrum or coccyx is seen. If there is concern for an occult injury, cross-sectional imaging is recommended. Electronically authenticated by: Gregorio LOPEZ Date: 04/25/2024 00:52
--- NOTE | 2024-04-24 23:27 | ED_ITS ---
HPI HPI - Back Pain/Injury General Chief Complaint: Back Pain/Injury Stated Complaint: FALL Time Seen by Provider: 04/24/24 23:24 Source: patient Mode of arrival: walk-in Limitations: no limitations History of Present Illness HPI Narrative: 58-year-old female presents for lower back and tailbone area pain. At 1:30 this afternoon, about 10 hours ago, she slipped on ice and fell and landed on this area. She did not hit her head and sustained no other injuries. The pain goes into her right buttock and down to the back of her right knee. The pain is moderate to severe. Related Data Home Medications ?Medication ?Instructions ?Recorded ?Confirmed albuterol sulfate 90 mcg/actuation inhalation 04/24/24 aerosol inhaler atorvastatin 80 mg tablet mg 04/24/24 carvedilol 6.25 mg tablet mg 04/24/24 phenazopyridine 200 mg tablet mg 04/24/24 tiotropium bromide 18 mcg capsule inhalation 04/24/24 with inhalation device (Spiriva with HandiHaler) Allergies Allergy/AdvReac Type Severity Reaction Status Date / Time Penicillins Allergy Mild Rash Verified 04/24/24 23:07 clindamycin AdvReac Nausea Verified 04/24/24 23:07 ibuprofen AdvReac Joint Pain Verified 04/24/24 23:07 Opioid HPI Opioid Management Most Recent Opioid Data: Last Pain Scale 8 02/20/24 22:48 02/20/24 Review of Systems ROS Narrative A ten point review of systems is negative except as noted above. PFSH PFSH Social History Little interest or pleasure in doing things: not at all Feeling down, depressed, or hopeless: not at all Exam Narrative Exam Narrative: Nurses note and vital signs reviewed and patient is not hypoxic. General: The patient appears uncomfortable. She is sitting upright. Skin: Warm, dry, no pallor noted. There is no rash noted. Head: Normocephalic, atraumatic Eye: Normal conjunctiva, no drainage Ears, Nose, Mouth, and Throat: oral mucosa is moist. Nares patent. Cardiovascular: Regular Rate and Rhythm Respiratory: Patient is in no distress, no accessory muscle use, lungs are clear to auscultation, no wheezing, rales or rhonchi Back: She has no bruise or abrasion on her back. She has diffuse tenderness across her lower back, more on the right than the left. Motor strength intact in her lower extremities. GI: Soft and nontender Musculoskeletal: The patient has no evidence of calf tenderness, no pitting edema, symmetrical pulses noted bilaterally Neurological: A&O, normal speech Psychiatric: Cooperative Constitutional Vital Signs, click to edit/add: Last Vital Signs Temp 98.5 F 04/24/24 23:09 Pulse 73 04/24/24 23:09 Resp 19 04/24/24 23:09 BP 154/89 H 04/24/24 23:09 Pulse Ox 98 04/24/24 23:09 O2 Del Method Room Air 04/24/24 23:09 Course Vital Signs Vital signs: Vital Signs Temperature 98.5 F 04/24/24 23:09 Pulse Rate 73 04/24/24 23:09 Respiratory Rate 19 04/24/24 23:09 Blood Pressure 154/89 H 04/24/24 23:09 Pulse Oximetry 98 04/24/24 23:09 Oxygen Delivery Method Room Air 04/24/24 23:09 Temperature 98.5 F 04/24/24 23:09 Pulse Rate 73 04/24/24 23:09 Respiratory Rate 19 04/24/24 23:09 Blood Pressure 154/89 H 04/24/24 23:09 Pulse Oximetry 98 04/24/24 23:09 Oxygen Delivery Method Room Air 04/24/24 23:09 MDM - Back Pain/Injury MDM Narrative Medical decision making narrative: X-ray of the lumbar, sacrum, and coccyx are all negative. She will be discharged home. Treatment diagnosis and follow-up were discussed with the patient. Differential Diagnosis Differential diagnosis: Likely other (Fracture, contusion) Imaging Data Lumbar x-ray, coccygeal x-ray: Radiologist's impression: ITS Impressions Lumbar Spine X-Ray 04/24/24 23:26 IMPRESSION: 1. No acute fracture or subluxation of the lumbar spine or sacrum or coccyx is seen. If there is concern for an occult injury, cross-sectional imaging is recommended. Electronically authenticated by: Gregorio LOPEZ Date: 04/25/2024 00:52 Sacrum and Coccyx X-Ray 04/24/24 23:26 IMPRESSION: 1. No acute fracture or subluxation of the lumbar spine or sacrum or coccyx is seen. If there is concern for an occult injury, cross-sectional imaging is recommended. Electronically authenticated by: Gregorio LOPEZ Date: 04/25/2024 00:52 Discharge Plan Discharge Chief Complaint: Back Pain/Injury Clinical Impression: Coccygeal contusion Patient Disposition: Home, Self-Care Time of Disposition Decision: 01:03 Condition: Good Mode of Transportation: Private Vehicle Prescriptions / Home Meds: No Action atorvastatin 80 mg tablet carvedilol 6.25 mg tablet phenazopyridine 200 mg tablet albuterol sulfate 90 mcg/actuation HFA aerosol inhaler INHALATION tiotropium bromide [Spiriva with HandiHaler] 18 mcg capsule, w/inhalation device INHALATION Print Language: Gibraltarian Instructions: Contusion in Adults (ED) Referrals: Corine Alexandre ND [Primary Care Provider] - 1 week
== END 2024-04-25 01:14 | disposition home or self-care (01) ==
PROVIDERS: Emergency Provider Emergency Medicine; PCP Student in an Organized Health Care Education/Training Program
DX: S30.0XXA Contusion of lower back and pelvis, initial encounter (principal); W00.0XXA Fall on same level due to ice and snow, initial encounter
CPT/HCPCS: 72100; 72220; 99283